=== PATIENT | male | born 1965 | race Two or more races ===

== ENCOUNTER 2024-07-05 07:30 | Day surgery (SDC) | payer MEDICAID, SELFPAY ==
[2024-07-04 08:17] VITALS: BMI 26.2
[2024-07-04 09:02] LABS: Hematocrit 29.9 % (41.0-53.0); Mean Corpuscular HGB Conc 33.4 g/dl (31.0-37.0); Mean Corpuscular Hemoglobin 29.9 pg (25.0-35.0); Mean Corpuscular Volume 90 fL (80-100); Neutrophils % (Auto) 78 % (37-80); Platelet Count 257 Thou/mm3 (140-440); RDW Standard Deviation 41.8 fL (35.1-43.9); Red Blood Count 3.34 Miln/mm3 (4.50-5.90); White Blood Count 8.4 Thou/mm3 (3.8-10.6)
[2024-07-04 09:03] LABS: Basophils % (Auto) 0 % (0-2.5); Eosinophils # (Auto) 0.1 Thou/mm3 (0.0-0.5); Eosinophils % (Auto) 1 % (0-10); Immature Granulocytes % (Auto) 0 % (0-0); Immature Granulocytes Auto 0.03 Thou/mm3 (0.00-0.00); Lymphocytes % (Auto) 12 % (10-50); Monocytes # (Auto) 0.6 Thou/mm3 (0.0-0.8); Monocytes % (Auto) 8 % (0-12); Neutrophils # (Auto) 6.6 Thou/mm3 (1.8-7.7); Nucleated Red Blood Cell % 0 /100 WBC (0)
[2024-07-04 09:19] LABS: Partial Thromboplastin Time 30.3 Seconds (22.0-36.0); Prothrombin Time 10.9 Seconds (9.0-12.2)
[2024-07-04 09:20] LABS: Alanine Aminotransferase 38 U/L (10-49); Albumin, Serum 3.9 gm/dL (3.5-5.0); Albumin/Globulin Ratio 1.4 (1.2-2.2); Alkaline Phosphatase 152 U/L (46-116); Anion Gap 6 (7-16); Aspartate Amino Transferase 26 U/L (0-34); BUN/Creatinine Ratio 7 Ratio (12-20); Bilirubin,Total 0.2 mg/dL (0.3-1.2); Blood Urea Nitrogen 41 mg/dL (9-23); Calcium (Corrected) 9.1 mg/dL (8.5-10.1); Carbon Dioxide 31.3 mMol/L (20.0-31.0); Chloride 98 mMol/L (98-107); Estimated Creatinine Clearance 10.9 mL/min (>60); Globulin 2.8 gm/dL (2.3-3.5); Glucose 245 mg/dL (74-106); Osmolality,Calculated 288 (275-295); Potassium 4.9 mMol/L (3.4-5.1); Sodium 135 mMol/L (136-145); Total Protein 6.7 gm/dL (5.7-8.2); eGFR 10 See Note
--- NOTE | 2024-07-04 15:11 | SUR.PREOP ---
Cardiac records reviewed with Dr Michel.
[2024-07-05] VITALS (17 sets, daily range): BP systolic 142–204; BP diastolic 80–97; PULSE 63–77; RESP 12–20; TEMP 36.4–37.3; O2SAT 95–100; BMI 25.1
[2024-07-05] MEDS: SODIUM CHLORIDE 0.9% 500 ML 500 ML 20 ML IV (08:35)
[2024-07-05 10:26] LABS: Potassium 4.3 mMol/L (3.4-5.1)
[2024-07-05] MEDS: ALBUTEROL RT 2.5 MG/3 ML NEBU INH (10:34)
--- NOTE | 2024-07-05 12:23 | ESOP_ITS ---
Date of Procedure 07/05/24 Pre Op Diagnosis End-stage renal disease with the need for permanent dialysis access Post Op Diagnosis Same as preop diagnosis Procedure Creation of arteriovenous fistula between the median cubital vein and the pr oximal portion of the radial artery Findings Excellent flow in the fistula with contributions to both the cephalic and basilic vein systems Procedure Description With the patient supine under laryngeal mask anesthesia the left upper extremity sterilely prepped and draped. A timeout was performed. The operation was done by making a slightly oblique incision just distal to the antecubital crease and the subcutaneous tissues were carefully dissected with electrocautery. The median cubital vein as well as its cephalic and basilic branches were carefully dissected free from surrounding tissues. The medial vein was then divided distally and mobilized. The dissection was then deepened to expose the radial artery. The radial artery was crossclamped proximally distally along 2 arteriotomy made. Stay sutures were placed. The vein was cut to size and sewn to the artery with a combination of interrupted and running 7-0 Prolene suture. Before completion the artery was 4 flushed and back flushed anastomotic area was irrigated with heparin saline and the anastomosis was completed and flow was established. Several branches were then ligated to ensure inline flow to the basilic and cephalic veins. The wounds were then closed with 3-0 Vicryl subcutaneous tissue and 4 Monocryl subcuticular skin closure. Sterile dressings were applied patient woke well from anesthesia was moved to recovery in stable condition Anesthesia other (Laryngeal mask anesthesia) Implants None Pathology / specimen None Estimated Blood Loss 10 Condition Stable Disposition PACU Surgeon Alexis Jeffries MD Surgical Staff Operation Date: 07/05/24 10:15 Case Staff Anesthesiologist: Ean Berman RN First Assistant: Lavern Singh
--- NOTE | 2024-07-05 12:35 | SUR.PHASEI ---
1230 Patient arrived to recovery resting comfortably in [facility], on oxygen 4L via oxy mask, drowsy and able to arouse with verbal prompting, breathing unlabored, vital signs stable, denies pain, dressing intact to left arm; dermabond, no bleeding noted, AV fistula from this procedure has both bruit and thrill present, lung sounds clear upon auscultation, bilateral radial pulses present when palpated, report received from Dr. Berman and Acosta ARGUELLO
--- NOTE | 2024-07-05 12:45 | SUR.PHASEI ---
1245 Report given to Gisell ARGUELLO
--- NOTE | 2024-07-05 12:45 | SUR.PHASEI ---
report from nurse cam grady pt denies pain and nausea. vss. breathing even and unlabored. dermabond inplace to left arm.
--- NOTE | 2024-07-05 13:27 | SUR.PHASEII ---
1327 Report received from Gisell ARGUELLO
--- NOTE | 2024-07-05 13:38 | SUR.PHASEII ---
[address] Berman regarding patient elevated blood pressure, ordered by anesthesia provider to treat patent current pain, and then if BP continues to be elevated administer Hydralazine 10mg via IV
[2024-07-05] MEDS: fentaNYL CIT INJ 50 mCg/ML AMP 2ML 25 MCG IV (13:43)
[2024-07-05] MEDS: hydrALAZINE INJ 20 MG/ML VIAL 10 MG IV (13:56)
--- NOTE | 2024-07-05 15:02 | SUR.PHASEII ---
1502 Patient meets discharge criteria from recovery, awake and alert, breathing unlabored, vital signs stable, denies pain, dressing intact; no bleeding noted, patient drinking water and ate a jello, denies nausea, patient assisted with dressing into his clothing by his sister, discharge instructions given with the assistance of the telephone auxiliary plant operator ID#[id number] to patient and his sister, sister signed discharge instructions. Patient given all his belongings prior to discharge, transported via wheelchair and left in a private vehicle.
== END 2024-07-05 15:02 | disposition home or self-care (01) ==
PROVIDERS: Anesthesiology; PCP Physician Assistant; Referring Provider Surgery Vascular Surgery; Visit Provider Surgery Vascular Surgery
PROC: (CPT 36825; principal; 2024-07-05 10:15)
DX: E11.22 Type 2 diabetes mellitus with diabetic chronic kidney disease (principal); I12.0 Hypertensive chronic kidney disease with stage 5 chronic kidney disease or end stage renal disease; N18.6 End stage renal disease; Z99.2 Dependence on renal dialysis; E78.00 Pure hypercholesterolemia, unspecified
CPT/HCPCS: 36821; 36415; 80053; 84132; 85025; 85610; 85730; A4217; A4649; J0360; J0461; J0690; J1100; J1644; J2250; J2371; J2405; J2440; J2704; J3010; J3490; J7040; J0665; J1920

== ENCOUNTER 2024-08-24 17:44 | Observation (INO) | payer MEDICAID, SELFPAY ==
[2024-08-24 18:07] VITALS: BP 118/65; PULSE 58; RESP 16; TEMP 36.6; O2SAT 95; BMI 26.2
--- NOTE | 2024-08-24 18:25 | XR_ITS ---
Examination: CT brain head without contrast. 2-D sagittal coronal reconstructions Date and time of exam:August 24, 2024 at 1833 hours Comparison February 28, 2005 INDICATIONS: Patient fell today with injury head, head pain CTDI: vol (mGy):7.88 DLP: (mGycm):175 Technique: Multiple CT axial sections of the brain have been obtained, 5 mm slice thickness. Contrast has not been administered. 2-D sagittal, coronal reconstructions have been obtained Low dose protocols were performed. One or more of the following dose reduction techniques were used; automated exposure control, adjustment of the mA and/or KV according to patient size, use of iterative reconstruction technique. Findings: No significant ventricular enlargement. Intra-axial or extra-axial hemorrhage density is not seen. No mass effect or midline shift Basal cisterns are not remarkable. Fourth ventricle is midline. Cranial vault intact. Impression: Negative for acute hemorrhage, mass effect or midline shift
--- NOTE | 2024-08-24 18:25 | XR_ITS ---
Examination: PA lateral chest 2 views TECHNIQUE: Upright PA lateral chest 2 views Exam date and time: August 14, 2024 1900 hours INDICATIONS: Patient fell out of bed today with image of the chest, chest pain FINDINGS: Mild enlargement cardiac contour Opacity left base consistent with pneumonia with moderate to large left pleural effusion Prominent vascular congestion Right internal jugular dialysis catheter satisfactorily positioned Clavicles ribs appear intact No pneumothorax IMPRESSION: Mild chronic heart failure pattern. Pneumonia left base with moderate to large left pleural effusion No pneumothorax
--- NOTE | 2024-08-24 18:25 | EKG_ITS ---
[facility] Test Date: 2024-08-24 Pat Name: PAIGE ZENG Department: Room: - Gender: Male Clerical Methods Analyst: : 1965 Requested By: Sagar Guaman Order Number: [id number] Reading MD: Sagar Guaman Measurements Intervals [place] Rate: 54 P: 44 WA: 151 QRS: 47 QRSD: 90 T: 109 QT: 496 QTc: 472 Interpretive Statements SINUS BRADYCARDIA LOW QRS VOLTAGE IN PRECORDIAL LEADS [QRS DEFLECTION < 1.0 mV IN CHEST LEADS] ABNORMAL QRS-T ANGLE [QRS-T AXIS DIFFERENCE > 60] PROLONGED QT INTERVAL Compared to ECG 04/19/2024 19:58:18 Low QRS voltage now present Prolonged QT interval now present Sinus rhythm no longer present Short WA interval no longer present /store/S0/[id number].pdf
--- NOTE | 2024-08-24 18:25 | XR_ITS ---
Examination: CT cervical spine without contrast 2-D sagittal reconstructions 2-D coronal reconstructions 3-D reconstructions. Exam date and time:August 24, 2024 1834 hours INDICATIONS: Patient fell today with injury to the neck, neck pain CTDI:vol (mGy) 7.88 DLP: (mGycm) 175 Technique: Multiple 2 mm axial sections of the cervical spine have been obtained. The coronal and sagittal reconstructions have been obtained. 3-D reconstructions have been obtained. Low dose protocols were performed. One or more of the following dose reduction techniques were used; automated exposure control, adjustment of the mA and/or KV according to patient size, use of iterative reconstruction technique. Findings: Axial sections demonstrate intact base of the skull. C1 exhibit satisfactory relationship to the odontoid. No acute cervical vertebral body fracture seen. Alignment posterior spinous processes satisfactory. Impression: No acute cervical fracture. Significant left pleural effusion, recommend PA lateral chest follow-up
--- NOTE | 2024-08-24 18:27 | EDRME_ITS ---
Rapid Medical Screening Exam [facility] Arrival date/time: 08/24/24 17:44 59M with history of HTN, ESRD, and DM presents to ED with LOC causing fall. Patient complaints of head, neck, and non-midline back pain. Patient denies ab pain. Chief Complaint: Fall Vital signs: Vital Signs Temperature 97.9 F 08/24/24 18:07 Pulse Rate 58 L 08/24/24 18:07 Respiratory Rate 16 08/24/24 18:07 Blood Pressure 118/65 08/24/24 18:07 Pulse Oximetry (%) 95 08/24/24 18:07 Oxygen Delivery Method Room Air 08/24/24 18:07
[2024-08-24 19:01] LABS: Basophils % (Auto) 0 % (0-2.5); Eosinophils % (Auto) 0 % (0-10); Hematocrit 29.9 % (41.0-53.0); Hemoglobin 9.6 g/dL (13.5-16.0); Immature Granulocytes % (Auto) 1 % (0-0); Immature Granulocytes Auto 0.09 Thou/mm3 (0.00-0.00); Lymphocytes # (Auto) 1.1 Thou/mm3 (1.0-4.8); Lymphocytes % (Auto) 9 % (10-50); Mean Corpuscular HGB Conc 32.1 g/dl (31.0-37.0); Mean Corpuscular Hemoglobin 28.1 pg (25.0-35.0); Mean Corpuscular Volume 87 fL (80-100); Monocytes # (Auto) 0.3 Thou/mm3 (0.0-0.8); Monocytes % (Auto) 3 % (0-12); Neutrophils # (Auto) 10.8 Thou/mm3 (1.8-7.7); Neutrophils % (Auto) 88 % (37-80); Nucleated Red Blood Cell % 0 /100 WBC (0); Platelet Count 203 Thou/mm3 (140-440); RDW Standard Deviation 47.3 fL (35.1-43.9); Red Blood Count 3.42 Miln/mm3 (4.50-5.90); White Blood Count 12.3 Thou/mm3 (3.8-10.6)
[2024-08-24 19:20] LABS: B-Type Natriuretic Peptide 1034 pg/mL (0-100)
[2024-08-24 19:22] LABS: Alanine Aminotransferase 175 U/L (10-49); Albumin, Serum 3.7 gm/dL (3.5-5.0); Albumin/Globulin Ratio 1.2 (1.2-2.2); Alkaline Phosphatase 191 U/L (46-116); Anion Gap 12 (7-16); Aspartate Amino Transferase 239 U/L (0-34); BUN/Creatinine Ratio 7 Ratio (12-20); Bilirubin,Total 0.4 mg/dL (0.3-1.2); Blood Urea Nitrogen 27 mg/dL (9-23); Calcium 9.1 mg/dL (8.3-10.6); Calcium (Corrected) 9.3 mg/dL (8.5-10.1); Carbon Dioxide 24.3 mMol/L (20.0-31.0); Chloride 99 mMol/L (98-107); Estimated Creatinine Clearance 16.2 mL/min (>60); Globulin 3.1 gm/dL (2.3-3.5); Glucose 273 mg/dL (74-106); Osmolality,Calculated 285 (275-295); Sodium 135 mMol/L (136-145); Total Protein 6.8 gm/dL (5.7-8.2); eGFR 17 See Note
[2024-08-24 19:23] LABS: Troponin I 0.124 ng/mL (0.0-0.045)
[2024-08-24 19:37] LABS: Collection Type, Urine Clean Catch; RBC,Urine 0 /hpf (0-3); WBC,Urine 0 /hpf (0-5)
[2024-08-24 19:51] LABS: Amphetamine/Methamp Scrn,U Negative (Negative); Barbiturate Screen,Urine Negative (Negative); Benzodiazepines Screen,Urine Negative (Negative); Benzoylecgonine Screen, Ur Negative (Negative); Fentanyl Screen,Urine Negative (Negative); Opiate Screen,Urine Negative (Negative); THC Screen,Urine Negative (Negative)
[2024-08-24 19:53] LABS: Bilirubin,Urine Negative (Negative); Blood,Urine Negative (Negative); Clarity,Urine Clear (Clear/Hazy); Color,Urine Lt-Yellow (Lt Yel-Yel); Glucose, Urine 3+ (Negative); Hyaline Casts,Urine < 1 /hpf (0-1); Ketones,Urine Negative (Negative); Leukocyte Esterase,Urine Negative (Negative); Nitrite,Urine Negative (Negative); Protein,Urine 3+ (Neg - Trace); Specific Gravity,Urine 1.011 (1.001-1.035); Squamous Epithelial Cell,Urine 1 /hpf (0-5); Urobilinogen,Urine Negative mg/dL (0.0-1.0)
[2024-08-24 21:49] VITALS: BP 171/84; PULSE 62; RESP 16; TEMP 36.3; O2SAT 97
[2024-08-24 22:40] VITALS: BP 175/95; PULSE 66; RESP 18; O2SAT 96
--- NOTE | 2024-08-24 22:44 | PC.NURSE ---
Initial contact with pt, awake no distress noted. S/p fall this morning, trying to get out off bed, light headed and fell. Denies hitting head or LOC. Pt stated that his B/P was low, SBP 80's.
--- NOTE | 2024-08-24 23:08 | PD.EDFALL ---
ED Fall Injury RME/HPI General Chief Complaint: Fall Stated Complaint: Fall today,low blood pressure, ringing in his head Arrival date/time: 08/24/24 17:44 RME / HPI RME / HPI Narrative: 08/24/24 17:44 59M with history of HTN, ESRD, and DM presents to ED with LOC causing fall. Patient complaints of head, neck, and non-midline back pain. Patient denies ab pain. ------- Dr. Stahl?s Main ED Evaluation: 59yo male with a history of ESRD on HD (//Tue), DM, HTN presents to the ED for a fall. Patient states he remembers laying in bed this morning and felt dizzy, reporting his son checked his blood pressure and was noted to be 80-90 systolically. He states he does not remember falling, endorsing he woke up on the floor and had a headache and lower back pain. Patient notes he's had a cough for the last 4 days. He denies any chest pain, fever, chills, sweating, body aches, N/V/D, abdominal pain or any other associated symptoms. No known allergies. Related Data Home Medications ?Medication ?Instructions ?Recorded ?Confirmed aspirin 81 mg tablet,delayed 81 mg PO DAILY 01/30/23 07/05/24 release albuterol sulfate 90 mcg/actuation 1 puff inhalation Q4H PRN 01/09/24 07/04/24 aerosol inhaler Shortness Of Breath Or Wheezing sitagliptin phosphate 25 mg tablet 25 mg PO QDAY 01/09/24 07/04/24 (Januvia) clonidine HCl 0.2 mg tablet 0.2 mg PO BID 04/17/24 07/04/24 metoprolol succinate 100 mg 100 mg PO QDAY 04/17/24 07/05/24 tablet,extended release 24 hr vitamin B complex-vitamin C-folic 1 tab PO QDAY 04/17/24 07/04/24 acid 0.8 mg tablet (Alvina-Ming) atorvastatin 80 mg tablet 80 mg PO QDAY 07/04/24 07/04/24 nifedipine 90 mg tablet,extended 90 mg PO Q12H 07/04/24 07/04/24 release Previous Rx's ?Medication ?Instructions ?Recorded hydralazine 100 mg tablet 100 mg PO TID@0800,1600,2300 #90 04/23/24 tabs valsartan 160 mg tablet 160 mg PO QDAY #30 tabs 04/23/24 Allergies Allergy/AdvReac Type Severity Reaction Status Date / Time No Known Allergies Allergy Verified 07/05/24 12:43 Review of Systems Review of Systems Systems Reviewed: All systems reviewed, normal except as documented Narrative Review of Systems: Gen: No fever, no chills, no weight loss EYES: No discharge, no visual changes, no pain HEENT: No ear pain, no congestion, no sore throat PULM: No shortness of breath, no cough, no congestion CV: No chest pain, no dyspnea on exertion, no palpitations GI: No nausea, no vomiting, no diarrhea, no pain, no constipation : No frequency, no urgency, no dysuria Musc/skel: No joint pain, + back pain Skin: No rash. Warm and dry. Psyc: No hallucinations, no depression Heme/Lymph: No easy bleeding or bruising tendencies Neuro: No weakness, + headache, + LOC, + dizziness Past Medical History Past Medical History NEUROLOGIC: Negative Neurological Disorders or Seizures CARDIAC: Positive Cardiac Disorders (pericardial effusion), Hypercholesterolemia, Congestive Heart Failure and Hypertension RESPIRATORY: Negative Chronic Obstructive Pulmonary Disease (COPD) GASTROINTESTINAL: Negative Gastrointestinal Disorders GENITOURINARY: Positive Genitourinary Disorders, Renal Disease and Dialysis (MWF) MUSCULOSKELETAL: Negative Musculoskeletal Disorders ENDOCRINE: Positive Endocrine Disorders and Diabetes Mellitus Type 2; Negative Diabetes Mellitus Type 1 HEMATOLOGIC: Positive Blood Disorders and Anemia PSYCHO/SOCIAL: Positive Depression OTHER HISTORY: Positive Hospitalization (Kidney failure); Negative Autoimmune Disease, Blood Transfusions, Blood Transfusion Reaction, Anesthesia Reactions or Cancer Family History FAMILY HISTORY: Positive Family Cardiac Disorders; Negative Family Psychiatric Problems, Family Respiratory Disorders, Family Gastrointestinal Problems, Family Cancer, Family Surgery or Family Anesthesia Reaction Social History SMOKING STATUS: Never smoker SUBSTANCE USE: does not use ED Exam Narrative Physical exam: GENERAL APPEARANCE: alert and oriented x 4, well-developed, well-nourished, no acute distress VITALS: All vitals were reviewed and the pulse ox is 96% on room air, which is normal according to my interpretation. HEENT: Normocephalic, atraumatic; pupils equal, round, reactive to light; EOMI; mucous membranes pink, moist; oropharynx clear NECK: Supple LUNGS: Diminished breath sounds at the left base; no wheezes, no rales, no rhonchi; no respiratory distress HEART: Regular rate, regular rhythm; normal S1, S2; no murmurs; right chest temporary dialysis catheter without erythema or active bleeding ABDOMEN: non distended; normal BS; soft, no tenderness, no guarding, no rebound; no masses, no organomegaly, no hernia BACK: no CVA tenderness EXTREMITIES: atraumatic; no edema NEUROLOGIC: awake; alert and oriented x4; cranial nerves II-XII grossly intact; no focal sensory or motor deficits PSYCHIATRIC: appropriate mood and affect SKIN: warm, dry, normal color; no rashes Course Quality Measures none Orders Category Date Time Status Legal Records Manager STAT Care 08/25/24 00:19 Active Continuous Pulse Oximetry ONCE Care 08/25/24 00:19 Active EKG (ED ONLY) *Do not use* NOW Care 08/24/24 18:25 Completed EKG (ED ONLY) *Do not use* NOW Care 08/25/24 00:19 Active Insert IV NOW Care 08/25/24 00:[address] cervical spine wo con Stat Exams 08/24/24 18:[address] head/brain wo con Stat Exams 08/24/24 18:25 Completed EKG (ED Only) Stat Exams 08/24/24 18:25 Draft EKG (ED Only) Stat Exams 08/25/24 00:19 Ordered XR chest 1V Stat Exams 08/24/24 18:25 Completed B-Type Natriuretic Peptide Stat Lab 08/24/24 18:43 Completed CBC Stat Lab 08/24/24 18:43 Completed Comprehensive Metabolic Panel Stat Lab 08/24/24 18:43 Completed Drug Screen,Urine Stat Lab 08/24/24 19:27 Completed Magnesium Stat Lab 08/25/24 00:19 Ordered Partial Thromboplastin Time Stat Lab 08/25/24 00:19 Ordered Prothrombin Time with INR Stat Lab 08/25/24 00:19 Ordered Troponin I Stat Lab 08/24/24 18:43 Completed Troponin I Stat Lab 08/25/24 00:19 Ordered Urinalysis Stat Lab 08/24/24 19:27 Completed Vital Signs Vital signs: Vital Signs Temperature 97.9 F 08/24/24 18:07 Pulse Rate 58 L 08/24/24 18:07 Respiratory Rate 16 08/24/24 18:07 Blood Pressure 118/65 08/24/24 18:07 Pulse Oximetry (%) 95 08/24/24 18:07 Oxygen Delivery Method Room Air 08/24/24 18:07 Fall MDM Narrative MDM Narrative:: Scribe Attestation: 08/24/24 - Julisa Babb, am scribing for and in the presence of Dr. Stahl. Patient data External records reviewed:: [facility] previous records (Per chart review, patient was admitted here on 04/17/24 for ISABELLA.) Clinical information provided by:: patient Social determinants that could affect healthcare access:: none Patient has the following chronic illnesses:: CHF, HTN, HLD, DM, ESRD on HD How is presenting disease/condition affected by chronic disease/condition?: uneffected by Evaluation data The following diagnostics were reviewed and interpreted by me:: lab results, radiology exam(s) and EKG tracing(s) Lab and/or radiology exams considered but not ordered:: none Interpretation Summary: WBC count is 12.3, HnH is 9.6/29.9, BUN is 27, Creatinine is 4.0 (which is chronic), Glucose is 273, troponin is 0.124, UDS is negative, according to my interpretation. EKG done at 1844, sinus bradycardia, rate of 84, normal axis, no ectopy, Q waves in V1-V3, QTc: 482, no STEMI, according to my interpretation. [facility] Report Signed Patient: PAIGE ZENG [facility]. Record#: [id number] Birthdate: 1965 Age/Sex: 59 / M Location: [facility] Attending Dr: Ordering Physician: Sagar Guaman PA-C Date of Service: 08/24/24 Procedure(s): CT head/brain wo con Accession Number(s): [id number] cc: Jim Driscoll PA-C; Aric Stacy MD; Sagar Guaman PA-C~ Examination: CT brain head without contrast. 2-D sagittal coronal reconstructions Date and time of exam:August 24, 2024 at 1833 hours Comparison February 28, 2005 INDICATIONS: Patient fell today with injury head, head pain CTDI: vol (mGy):7.88 DLP: (mGycm):175 Technique: Multiple CT axial sections of the brain have been obtained, 5 mm slice thickness. Contrast has not been administered. 2-D sagittal, coronal reconstructions have been obtained Low dose protocols were performed. One or more of the following dose reduction techniques were used; automated exposure control, adjustment of the mA and/or KV according to patient size, use of iterative reconstruction technique. Findings: No significant ventricular enlargement. Intra-axial or extra-axial hemorrhage density is not seen. No mass effect or midline shift Basal cisterns are not remarkable. Fourth ventricle is midline. Cranial vault intact. Impression: Negative for acute hemorrhage, mass effect or midline shift Dictated By: Aric Stacy MD Signed By: <Electronically signed by Aric Stacy MD in [place]> 08/24/241936 [facility] Report Signed Patient: PAIGE ZENG [facility]. Record#: [id number] Birthdate: 1965 Age/Sex: 59 / M Location: [facility] Attending Dr: Ordering Physician: Sagar Guaman PA-C Date of Service: 08/24/24 Procedure(s): XR chest 1V Accession Number(s): [id number] cc: Jim Driscoll PA-C; Aric Stacy MD; Sagar Guaman PA-C~ Examination: PA lateral chest 2 views TECHNIQUE: Upright PA lateral chest 2 views Exam date and time: August 14, 2024 1900 hours INDICATIONS: Patient fell out of bed today with image of the chest, chest pain FINDINGS: Mild enlargement cardiac contour Opacity left base consistent with pneumonia with moderate to large left pleural effusion Prominent vascular congestion Right internal jugular dialysis catheter satisfactorily positioned Clavicles ribs appear intact No pneumothorax IMPRESSION: Mild chronic heart failure pattern. Pneumonia left base with moderate to large left pleural effusion No pneumothorax Dictated By: Aric Stacy MD Signed By: <Electronically signed by Aric Stacy MD in [place]> 08/24/241943 [facility] Report Signed Patient: PAIGE ZENG [facility]. Record#: [id number] Birthdate: 1965 Age/Sex: 59 / M Location: [facility] Attending Dr: Ordering Physician: Sagar Guaman PA-C Date of Service: 08/24/24 Procedure(s): CT cervical spine wo con Accession Number(s): [id number] cc: Jim Driscoll PA-C; Aric Stacy MD; Sagar Guaman PA-C~ Examination: CT cervical spine without contrast 2-D sagittal reconstructions 2-D coronal reconstructions 3-D reconstructions. Exam date and time:August 24, 2024 1834 hours INDICATIONS: Patient fell today with injury to the neck, neck pain CTDI:vol (mGy) 7.88 DLP: (mGycm) 175 Technique: Multiple 2 mm axial sections of the cervical spine have been obtained. The coronal and sagittal reconstructions have been obtained. 3-D reconstructions have been obtained. Low dose protocols were performed. One or more of the following dose reduction techniques were used; automated exposure control, adjustment of the mA and/or KV according to patient size, use of iterative reconstruction technique. Findings: Axial sections demonstrate intact base of the skull. C1 exhibit satisfactory relationship to the odontoid. No acute cervical vertebral body fracture seen. Alignment posterior spinous processes satisfactory. Impression: No acute cervical fracture. Significant left pleural effusion, recommend PA lateral chest follow-up Dictated By: Aric Stacy MD Signed By: <Electronically signed by Aric Stacy MD in [place]> 08/24/241934 Medications / Prescriptions Medications or Prescriptions considered but not ordered:: none Medication administrations:: see above, if any Consultations Consultation(s) initiated? (list below): Yes Consultation #1 (Physician, Specialty, Details): Discussed case with [the resident physician, attending Dr. Bui] from Hospitalist service regarding admission. Discussed patients ED course, exam findings, labs, and radiology results. The Hospitalist [agrees] to accept the patient for admission. Time: 00:52 Diagnosis Fall Differential Diagnosis: other (hypokalemia, hyperkalemia, hypomagnesemia, orthostatic syncope, STEMI, NSTEMI, hypovolemia) Most likely diagnosis given after review of the tests above:: see below Admission Indicated Admission indicated?: indicated Admission Request Was there a request for admission?: Yes Admission Attestation Admission request attestation: Discussed case with [] from Hospitalist service regarding admission. Discussed patients ED course, exam findings, labs, and radiology results. The Hospitalist [agrees,declines] to accept the patient for admission. Disposition Plan Disposition Plan: Admit Discharge Plan Plan Patient Disposition: Admit Acute Care w/in Hospital Prescriptions/Referrals Prescriptions/Med Rec: No Action aspirin 81 mg tablet,delayed release (DR/EC) 81 mg PO DAILY Patient Comments: TOME JALEEL TABLETA TODOS LOS D FOR 90 DAYS Januvia 25 mg tablet 25 mg PO QDAY albuterol sulfate 90 mcg/actuation HFA aerosol inhaler 1 puff INHALATION Q4H PRN (Reason: Shortness Of Breath Or Wheezing) Patient Comments: INHALE UN SOPLIDO INTO THE LUNGS CADA CUATRO HORAS CUANDO SEA NECESARIO FOR 30 DAYS metoprolol succinate 100 mg Tablet Extended Release 24 Hr 100 mg PO QDAY clonidine HCl 0.2 mg Tablet 0.2 mg PO BID Alvina-Ming 0.8 mg Tablet 1 tab PO QDAY hydralazine 100 mg tablet 100 mg PO TID@0800,1600,2300 Qty: 90 0RF valsartan 160 mg tablet 160 mg PO QDAY Qty: 30 0RF atorvastatin 80 mg Tablet 80 mg PO QDAY nifedipine 90 mg Tablet Extended Release 90 mg PO Q12H Referrals: Jim Driscoll PA-C [Primary Care Provider] - In 1 week Problem List Clinical Impression: Pneumonia, Syncope, Sepsis Patient/Caregiver Discharge Instructions Print Language: Australian Stand Alone Forms: Atiya Award Info., Patient Portal Info Letter
[2024-08-25] VITALS (30 sets, daily range): BP systolic 144–215; BP diastolic 82–116; PULSE 63–90; RESP 16–19; TEMP 36.6–37.1; O2SAT 95–99
[2024-08-25 01:22] LABS: INR 1.2 (0.9-1.3); Partial Thromboplastin Time 29.9 Seconds (22.0-36.0); Prothrombin Time 13.3 Seconds (9.0-12.2)
[2024-08-25 01:29] LABS: Magnesium 1.9 mg/dL (1.6-2.6)
[2024-08-25 01:33] LABS: Troponin I 0.117 ng/mL (0.0-0.045)
--- NOTE | 2024-08-25 01:54 | PD.RESHP ---
Documentation for date of: 08/25/24 HPI History of Present Illness Chief complaint: Syncopal episode History of present illness: A 58 yr male with PMH of HTN, HLD, ESRD on HD , osteomyelitis of right toe, and T2DM presented to the hospital with chief complaints of dizziness and an episode of syncope on the day of admission. Patient reported that he had a recent change in the blood pressure medication on 23/08/2024 and since then patient is having dizziness and mild tinnitus in his ears. On the day of admission, patient felt extremely dizzy on waking up in the morning and checked his blood pressures and found to have blood pressure in 80s. Patient went back to the bed, when tried to get up from the bed he suddenly felt dizzy and blackening out following which he found himself on the floor by the side of the bed and unsure of the duration of unconsciousness. Denies tongue bite, micturition, bowel movement at the time. And later on regaining the consciousness he called his daughter who helped him out to get onto the bed and since then patient felt extremely weak and dizzy following which she came to the hospital for further evaluation. Endorsed that he did not take blood pressure medications on the day of admission. Denies fever, shortness of breath, vomitings, diarrhea, burning micturition, palpitations, chest pain. ED Course: -Initial vitals were blood pressure 118/65 mmHg, pulse rate 58 bpm, respiratory rate 16/min, SpO2 93% with room air, temperature 97.9 ?F -Labs significant for hemoglobin 9.1, BUN 29, creatinine 4.4, AST 239, ALT 175, ALP 191, troponin 0.124 -Cervical spine CT is negative for acute fracture. Head CT is negative for hemorrhage. Chest x-ray showed left pleural effusion. -EKG showed sinus bradycardia with heart rate of 54/min, prolonged QTc of 472. -Patient was admitted for evaluation of syncope, likely due to antihypertensive medications Past medical history: Hypertension, hyperlipidemia, ESRD on HD, osteomyelitis of right toe, type 2 diabetes mellitus Past surgical history: Not significant Social history: Denies smoking, alcohol, other illicit drug abuse. Review of Systems Review of Systems Systems Reviewed: All systems reviewed, normal except as documented Exam Vital Signs Temp Pulse Resp BP Pulse Ox O2 Del Method 97.9 F 69 19 192/97 H 95 Room Air 08/25/24 01:12 08/25/24 01:12 08/25/24 01:12 08/25/24 01:12 08/25/24 01:12 08/25/24 01:12 Narrative Exam General: Awake. HEENT: Normocephalic, atraumatic, mucous membranes moist. Heart: Regular rate and rhythm, no murmurs. Lungs: Clear to auscultation with no wheezing or crackles. TDC on the right side with intact and clean dressing Abdomen: Soft, nondistended, nontender, positive bowel sounds. ?No guarding or rebound tenderness. Neurologic: Alert and oriented x3, no gross neurological deficit, and patient able to move all 4 extremities. Extremities: No edema. Skin: No rash or ecchymoses. Results: Labs 08/25/24 04:40 08/25/24 04:40 Labs: Short CBC 08/24/24 Range/Units 18:43 WBC 12.3 H (3.8-10.6) Thou/mm3 Hgb 9.6 L (13.5-16.0) g/dL Hct 29.9 L (41.0-53.0) % Plt Count 203 (140-440) Thou/mm3 BMP 08/24/24 18:43 Sodium 135 L Potassium 5.0 Chloride 99 Carbon Dioxide 24.3 BUN 27 H Creatinine 4.0 H Glucose 273 H Calcium 9.1 Cardiac Enzymes 08/24/24 08/25/24 Range/Units 18:43 00:42 Troponin I 0.124 H* 0.117 H* (0.0-0.045) ng/mL Liver Function 08/24/24 Range/Units 18:43 Total Bilirubin 0.4 (0.3-1.2) mg/dL AST 239 H (0-34) U/L ALT 175 H (10-49) U/L Alkaline Phosphatase 191 H (46-116) U/L Albumin 3.7 (3.5-5.0) gm/dL Urine 08/24/24 Range/Units 19:27 Urine Color Lt-Yellow (Lt Yel-Yel) Urine Clarity Clear (Clear/Hazy) Urine pH 8.0 H (5.0-7.0) Ur Specific [place] 1.011 (1.001-1.035) Urine Protein 3+ A (Neg - Trace) Urine Glucose (UA) 3+ A (Negative) Quality Measures Quality Measures none Medications Home Medications and Allergies Home Medications ?Medication ?Instructions ?Recorded ?Confirmed ?Type aspirin 81 mg tablet,delayed 81 mg PO DAILY 01/30/23 07/05/24 History release albuterol sulfate 90 mcg/actuation 1 puff inhalation Q4H PRN 01/09/24 07/04/24 History aerosol inhaler Shortness Of Breath Or Wheezing sitagliptin phosphate 25 mg tablet 25 mg PO QDAY 01/09/24 07/04/24 History (Januvia) clonidine HCl 0.2 mg tablet 0.2 mg PO BID 04/17/24 07/04/24 History metoprolol succinate 100 mg 100 mg PO QDAY 04/17/24 07/05/24 History tablet,extended release 24 hr vitamin B complex-vitamin C-folic 1 tab PO QDAY 04/17/24 07/04/24 History acid 0.8 mg tablet (Alvina-Ming) atorvastatin 80 mg tablet 80 mg PO QDAY 07/04/24 07/04/24 History Allergies Allergy/AdvReac Type Severity Reaction Status Date / Time No Known Allergies Allergy Verified 07/05/24 12:43 Assessment & Plan Plan A 58 yr male with PMH of HTN, HLD, ESRD on HD , osteomyelitis of right toe, and T2DM presented to the hospital with chief complaints of dizziness and an episode of syncope on the day of admission which could be likely due to antihypertensive medications # Syncope # Bradycardia versus mild hypotension due to recent medication adjustments -Patient reported that recently his blood pressure medications, likely nifedipine was changed during his last dialysis session -Since that time, patient is complaining of dizziness and had a syncopal episode on the day of admission -Denies involuntary movements, bowel or bladder incontinence, tongue bite -Vitals are stable at the time of admission except for mild bradycardia 58/min -EKG at the time of admission showed sinus rhythm with bradycardia of heart rate 54/min, prolonged QTc of 470 -Chest x-ray showed left pleural effusion Plan -Orthostatic vitals are ordered -Patient admitted for observation and telemetry -Started on clonidine, losartan -Resume other home medications based on his blood pressures -Medication reconciliation is needed for the patient at the time of discharge -Monitor for bradycardia/rhythm abnormalities # ESRD on HD -Patient is on dialysis on Tuesday//Tuesday -Patient is following Dr. Amaro -Dr. Bustos is consulted as patient is having pending dialysis on 08/25/2024 -Very low suspicion of catheter related bloodstream infection as of now # Hypertensive urgency # History of hypertension -Patient blood pressure at the time of admission is 118/65 mmHg -Later blood pressure found to elevated, SBP> 180 mmHg -Medication reconciliation is ordered -Resume his clonidine and losartan and resume other medications # History of diabetes mellitus -Patient is on Januvia -Insulin sliding scale is ordered -HbA1c on 03/2024 is 6 Hospital Maintenance: Dispo: Tele DVT ppx: SCD GI ppx: not needed Diet: Renal IV lines: peripheral Code status: Full Patient plan of care was discussed with the attending physician, Dr. iTm Harden, PGY1 Attending Provider Attestation/Addendum I attest that I was physically present for the evaluation, physical examination, lab and imaging review of the patient with the residents. I discussed the case with the residents and agree with the findings and plans of care as documented above. Patient is a 58 years old male with past medical history of hypertension, hyperlipidemia, ESRD on hemodialysis, osteomyelitis of right toe and type 2 diabetes mellitus who presented to the ED with complaint of dizziness and episode of syncope. Patient recently had a change in his antihypertensives regimen, stated that he was added some more antihypertensives. On waking up today, he found his blood pressure to be on 80s systolic. He felt dizzy and had a blackout, found himself on the floor. He was unsure of the duration. In the ED, his pulse was 58 otherwise rest of the vitals were within normal limits. Lab results showed hemoglobin of 9.1, BUN/creatinine 29/4.4, AST 239, ALT 175, ALP 191 and troponin of 0.124. Head CT and cervical CT were negative for acute hemorrhage or fracture. We will admit patient for evaluation of syncope, we will obtain orthostatic vitals, echocardiography. At bedside, patient was found to have elevated blood pressures, we will resume his home antihypertensives and adjust as needed. We will obtain nephrology consult for continuation of hemodialysis. Also started on sliding scale for diabetes mellitus. Luis Dumont MD
[2024-08-25 04:50] LABS: Basophils % (Auto) 0 % (0-2.5); Eosinophils % (Auto) 0 % (0-10); Hemoglobin 9.1 g/dL (13.5-16.0); Immature Granulocytes % (Auto) 0 % (0-0); Immature Granulocytes Auto 0.03 Thou/mm3 (0.00-0.00); Lymphocytes # (Auto) 1.6 Thou/mm3 (1.0-4.8); Lymphocytes % (Auto) 16 % (10-50); Mean Corpuscular HGB Conc 32.5 g/dl (31.0-37.0); Mean Corpuscular Hemoglobin 27.7 pg (25.0-35.0); Mean Corpuscular Volume 85 fL (80-100); Monocytes # (Auto) 0.5 Thou/mm3 (0.0-0.8); Monocytes % (Auto) 4 % (0-12); Neutrophils # (Auto) 8.2 Thou/mm3 (1.8-7.7); Neutrophils % (Auto) 79 % (37-80); Nucleated Red Blood Cell % 0 /100 WBC (0); Platelet Count 185 Thou/mm3 (140-440); RDW Standard Deviation 46.8 fL (35.1-43.9); Red Blood Count 3.28 Miln/mm3 (4.50-5.90); White Blood Count 10.3 Thou/mm3 (3.8-10.6)
[2024-08-25 05:05] LABS: Anion Gap 8 (7-16); BUN/Creatinine Ratio 7 Ratio (12-20); Blood Urea Nitrogen 29 mg/dL (9-23); Calcium 8.8 mg/dL (8.3-10.6); Chloride 101 mMol/L (98-107); Creatinine (Component) 4.4 mg/dL (0.6-1.3); Estimated Creatinine Clearance 14.7 mL/min (>60); Glucose 154 mg/dL (74-106); Osmolality,Calculated 282 (275-295); Sodium 137 mMol/L (136-145); eGFR 15 See Note
[2024-08-25] MEDS: hydrALAZINE HCL 25 MG TABLET 100 MG PO (05:23)
--- NOTE | 2024-08-25 06:31 | PC.NURSE ---
clarified with hospitalist Kalin dose. Will change amy HIGGINBOTHAM.
[2024-08-25] MEDS: LOSARTAN POTASSIUM 25 MG TABLET 100 MG PO (06:47)
--- NOTE | 2024-08-25 06:49 | PC.NURSE ---
pt unable to recall meds taken at home, will call dtr.
[2024-08-25] MEDS: cloNIDine HCL 0.1 MG TABLET 0.2 MG PO ×2 (08:48→13:38)
--- NOTE | 2024-08-25 11:11 | ESDS_ITS ---
Planned Discharge Date 08/25/24 DS: Providers Provider Date of admission: 08/25/24 01:52 Primary care physician: Jim Driscoll PA-C Admitting Provider: Luis Dumont MD Attending Provider on Admission: Luis Dumont MD Consults: 08/25/24 05:26 Consult to Nephrology Routine Comment: ESRD Consulting Provider: Navneet Bustos Attending Provider on DC: Dex Reyna MD Discharging Provider: Kelton Gallagher DO DS: Diagnosis Problem List Completed Was Problem List Reviewed/Reconciled?: Yes Hospital Course Hospital Course Hospital course: Hospital course: A 58 yr male with PMH of HTN, HLD, ESRD on HD T//TUE, osteomyelitis of right toe, and T2DM presented to the hospital with chief complaints of dizziness and an episode of syncope on the day of admission. Patient reported that he had a recent change in the blood pressure medication (started nifedipine) on 08/23/2024 and since then patient is having dizziness and mild tinnitus in his ears. Syncope workup in the ED performed. Vitals in the ED reassuring, labs unchanged from previous. CT of the spine is negative for acute fracture. Head CT is negative for hemorrhage. Chest x-ray showed left pleural effusion. EKG sinus bradycardia with heart rate of 54/min, prolonged QTc of 472. Patient was placed on observation, for syncope likely in the setting of new antihypertensive medication. Consulted patient's environment artist, Dr. Bustos, who recommended discontinuing nifedipine, performing HD and discharging pt. Pt to f/u with nephrology and pcp outpatient. Discharge instructions: Discontinue nifedipine 90 mg daily Resume aspirin 81 mg daily Resume albuterol sulfate 90 mcg/Accu Tatian aerosol inhaler Resume sitagliptin phosphate 25 mg daily Resume clonidine HCl 0.2 mg daily resume metoprolol succinate 100 mg tablet, extended release 24-hour Resume atorvastatin 80 mg daily Follow-up with your environment artist Dr. Bustos and PCP closely. Discharge diagnosis: # Syncope # Bradycardia versus mild hypotension due to recent medication adjustments # ESRD on HD # Hypertensive urgency # History of hypertension # History of diabetes mellitus Patient care was discussed with my attending Dr. Reyna, Kelton Gallagher DO, PGY1 Time Spent with Patient Time attestation: Total time spent providing and/or coordinating discharge services: Exam Vital Signs Temp Pulse Resp BP Pulse Ox O2 Del Method 98.2 F 67 18 167/84 H 98 Room Air 08/25/24 09:40 08/25/24 09:40 08/25/24 09:40 08/25/24 09:40 08/25/24 09:40 08/25/24 09:40 Narrative Exam Constitutional: In no acute distress Head: Normocephalic/Atraumatic Eyes: no conjunctival injection , symmetrical lids. ENMT: Moist Mucous Membranes CVS: RRR RESP: no increased work of breathing MSK: No lower extremity edema Skin: Warm to touch, Dry. Neuro: A&O x 3, moves all limbs spontaneously Psych: Appropriate mood and affect. Discharge Plan Prescriptions/Referrals Prescriptions/Med Rec: No Action aspirin 81 mg tablet,delayed release (DR/EC) 81 mg PO DAILY Patient Comments: TOME JALEEL TABLETA TODOS LOS D FOR 90 DAYS Januvia 25 mg tablet 25 mg PO QDAY albuterol sulfate 90 mcg/actuation HFA aerosol inhaler 1 puff INHALATION Q4H PRN (Reason: Shortness Of Breath Or Wheezing) Patient Comments: INHALE UN SOPLIDO INTO THE LUNGS CADA CUATRO HORAS CUANDO SEA NECESARIO FOR 30 DAYS metoprolol succinate 100 mg Tablet Extended Release 24 Hr 100 mg PO QDAY clonidine HCl 0.2 mg Tablet 0.2 mg PO BID Alvina-Ming 0.8 mg Tablet 1 tab PO QDAY hydralazine 100 mg tablet 100 mg PO TID@0800,1600,2300 Qty: 90 0RF valsartan 160 mg tablet 160 mg PO QDAY Qty: 30 0RF atorvastatin 80 mg Tablet 80 mg PO QDAY nifedipine 90 mg Tablet Extended Release 90 mg PO Q12H Referrals: Jim Driscoll PA-C [Primary Care Provider] - Patient/Caregiver Discharge Instructions Other Discharge Activity Instructions:: Discontinue nifedipine 90 mg daily Resume aspirin 81 mg daily Resume albuterol sulfate 90 mcg/Accu Tatian aerosol inhaler Resume sitagliptin phosphate 25 mg daily Resume clonidine HCl 0.2 mg daily resume metoprolol succinate 100 mg tablet, extended release 24-hour Resume atorvastatin 80 mg daily Follow-up with your environment artist Dr. Bustos and PCP closely. Print Language: Tajik Quality Discharge Quality Measures VTE prophylaxis
--- NOTE | 2024-08-25 11:28 | PD.NEPHCONS ---
History of Present Illness Data of Consult Requesting Physician: Luis Dumont MD Primary Care Provider: Jim Driscoll PA-C Consult Narrative Reason for consult: ESRD History of present illness: Mr. Evans is a 59-year-old gentleman who has extensive past medical history of hypertension, diabetes, dyslipidemia, ESRD has been on dialysis for the last few months under my care ( [facility]TS) presented to the emergency department after an episode of syncope yesterday. Patient apparently was feeling dizzy and noted to have significantly low blood pressure along with ringing in the ears that the daughter brought him to the emergency department. Patient stated that he fell on the floor and subsequently presented to the ED for further evaluation. In the emergency department blood pressure was low at 118/65, heart rate 58. Respiratory rate 16, O2 sat 93%. He is afebrile. During his last visit in my office his blood pressure was 200 systolic and I started him on nifedipine. Patient stated since he was started on nifedipine he was not feeling well. Denies fever, shortness of breath, vomiting, diarrhea, burning micturition, palpitations, chest pain. His home medications included 5 different blood pressure pills-clonidine, hydralazine, metoprolol, nifedipine, valsartan. In the emergency department, Head CT negative. Cervical spine CT negative. Chest x-ray showed mild fluid overload -EKG showed sinus bradycardia with heart rate of 54/min, prolonged QTc of 472. -Patient was admitted for evaluation of syncope, likely due to antihypertensive medications Renal consultation requested for further need for dialysis cc:: cc: Luis Dumont MD Review of Systems Review of Systems Narrative Review of Systems: CONSTITUTIONAL: Patient denies any fever, chills. Complaining of fatigue HEENT: Denies any visual disturbances or hearing problems. CARDIOVASCULAR: Patient denies any chest pain, shortness of breath, swelling in the lower extremities. PULMONARY: Patient denies any shortness of breath, cough. GASTROINTESTINAL: Patient denies any abdominal pain, constipation, nausea, vomiting, diarrhea. GENITOURINARY: Patient denies any urinary symptoms of burning or frequency or hematuria, denies any form in the urine. SKIN: Denies any rash. MUSCULOSKELETAL: Denies any muscular skeletal problems of joint pains. NEUROLOGICAL: Denies any neurological problems of strokes, seizures or confusion. Denies any memory problems. Had an episode of syncope not anymore. PSYCHIATRIC: Denies any depression or anxiety. LYMPHATICS : No lymphadenopathy Past Medical History Past Medical History NEUROLOGIC: Negative Neurological Disorders or Seizures CARDIAC: Positive Cardiac Disorders (pericardial effusion), Hypercholesterolemia, Congestive Heart Failure and Hypertension RESPIRATORY: Negative Chronic Obstructive Pulmonary Disease (COPD) GASTROINTESTINAL: Negative Gastrointestinal Disorders GENITOURINARY: Positive Genitourinary Disorders, Renal Disease and Dialysis (MWF) MUSCULOSKELETAL: Negative Musculoskeletal Disorders ENDOCRINE: Positive Endocrine Disorders and Diabetes Mellitus Type 2; Negative Diabetes Mellitus Type 1 HEMATOLOGIC: Positive Blood Disorders and Anemia PSYCHO/SOCIAL: Positive Depression OTHER HISTORY: Positive Hospitalization (Kidney failure); Negative Autoimmune Disease, Blood Transfusions, Blood Transfusion Reaction, Anesthesia Reactions or Cancer Family History FAMILY HISTORY: Positive Family Cardiac Disorders; Negative Family Psychiatric Problems, Family Respiratory Disorders, Family Gastrointestinal Problems, Family Cancer, Family Surgery or Family Anesthesia Reaction Social History SMOKING STATUS: Never smoker SUBSTANCE USE: does not use Meds Home Medications and Allergies Home Medications ?Medication ?Instructions ?Recorded ?Confirmed ?Type aspirin 81 mg tablet,delayed 81 mg PO DAILY 01/30/23 07/05/24 History release albuterol sulfate 90 mcg/actuation 1 puff inhalation Q4H PRN 01/09/24 07/04/24 History aerosol inhaler Shortness Of Breath Or Wheezing sitagliptin phosphate 25 mg tablet 25 mg PO QDAY 01/09/24 07/04/24 History (Januvia) clonidine HCl 0.2 mg tablet 0.2 mg PO BID 04/17/24 07/04/24 History metoprolol succinate 100 mg 100 mg PO QDAY 04/17/24 07/05/24 History tablet,extended release 24 hr vitamin B complex-vitamin C-folic 1 tab PO QDAY 04/17/24 07/04/24 History acid 0.8 mg tablet (Alvina-Ming) atorvastatin 80 mg tablet 80 mg PO QDAY 07/04/24 07/04/24 History nifedipine 90 mg tablet,extended 90 mg PO Q12H 07/04/24 07/04/24 History release Allergies Allergy/AdvReac Type Severity Reaction Status Date / Time No Known Allergies Allergy Verified 07/05/24 12:43 Exam Vital Signs Temp Pulse Resp BP Pulse Ox O2 Del Method 36.8 C 67 18 167/84 H 98 Room Air 08/25/24 09:40 08/25/24 09:40 08/25/24 09:40 08/25/24 09:40 08/25/24 09:40 08/25/24 09:40 Narrative Exam GENERAL APPEARANCE: Patient seems to be comfortable, adequately hydrated and nourished. HEENT: EOMI, PERRLA NECK: Neck supple, no JVD or bruit CARDIOVASCULAR: Heart regular, no murmurs LUNGS/CHEST: Chest clear to auscultation. No rales, rhonchi, wheezing ABDOMEN: Soft, nontender, nondistended. No masses. Normal bowel sounds. EXTREMITIES: No edema, clubbing or cyanosis. SKIN: Skin exam normal without any rashes MUSCULOSKELETAL: Musculoskeletal exam normal PSYCHIATRIC: Normal mood, affect LYMPHATICS: No lymphadenopathy noted NEUROLOGICAL : No neurological deficits Results Labs 08/25/24 04:40 08/25/24 04:40 Labs: Short CBC 08/24/24 08/25/24 Range/Units 18:43 04:40 WBC 12.3 H 10.3 (3.8-10.6) Thou/mm3 Hgb 9.6 L 9.1 L (13.5-16.0) g/dL Hct 29.9 L 28.0 L (41.0-53.0) % Plt Count 203 185 (140-440) Thou/mm3 BMP 08/24/24 08/25/24 18:43 04:40 Sodium 135 L 137 Potassium 5.0 5.0 Chloride 99 101 Carbon Dioxide 24.3 28.0 BUN 27 H 29 H Creatinine 4.0 H 4.4 H* Glucose 273 H 154 H D Calcium 9.1 8.8 Cardiac Enzymes 08/24/24 08/25/24 Range/Units 18:43 00:42 Troponin I 0.124 H* 0.117 H* (0.0-0.045) ng/mL Liver Function 08/24/24 Range/Units 18:43 Total Bilirubin 0.4 (0.3-1.2) mg/dL AST 239 H (0-34) U/L ALT 175 H (10-49) U/L Alkaline Phosphatase 191 H (46-116) U/L Albumin 3.7 (3.5-5.0) gm/dL Urine 08/24/24 Range/Units 19:27 Urine Color Lt-Yellow (Lt Yel-Yel) Urine Clarity Clear (Clear/Hazy) Urine pH 8.0 H (5.0-7.0) Ur Specific [place] 1.011 (1.001-1.035) Urine Protein 3+ A (Neg - Trace) Urine Glucose (UA) 3+ A (Negative) Assessment & Plan Additional Assessment & Plan Additional Plan: (1) 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 Tolerating dialysis without any problems. Hemodialysis for 3 hours, 2K, ultrafiltration 2-3 L, Epogen 6000, no heparin ordered. Plan of care discussed with the dialysis nurse. Please see dialysis flowsheet for further details. (2) syncope Status: Acute Assessment and plan: most likely related to antihypertensives. On admission his blood pressure was very low. Will hold off on nifedipine. 3)Anemia: Status: Chronic Assessment and plan: Will give Epogen with dialysis (4) Diabetes: Status: Chronic Accu-Cheks, sliding scale, consistent carb low (5) Hypertension: Status: Acute Assessment and plan: Resume home medications except nifedipine. Currently his blood pressure systolic 1 60-1 75. (7) PAD (peripheral artery disease): Status: Acute Assessment and plan: Decrease in pulses of the lower extremities Thank you Dr. Reyna for allowing me to participate in the care of Mr. Evans. Patient requesting to go home postdialysis. Will defer to primary team.
[2024-08-25] MEDS: INSULIN LISPRO (AdmeLOG) 1 UNIT/0.01 ML UNIT SC (12:32)
--- NOTE | 2024-08-25 13:41 | PC.NURSE ---
BP elevated, order from Dr. Bustos, clonidine 0.2 MG po given.
--- NOTE | 2024-08-25 15:17 | PC.LAC ---
Addendum entered by Kassidy Arceo RN 08/25/24 15:26: Disregard previous note about venous pressure. Wrong pt.l Addendum entered by Kassidy Arceo RN 08/25/24 15:24: Increased venous pressure, rinsed pt. back thinking she was clotting, but lines clear so restarted HD added 200 to goal for NS flush and increased time 2 minutes to bring down UF rate. Original Note: Called Dr. Bustos about pts. elevated BP. States there is nothing else we can do, complete dialysis and let the team take care of it.
--- NOTE | 2024-08-25 15:28 | PC.NURSE ---
Dr. Bustos called about pts elevated BP. She stated nothing we can do now, finish HD and let the team deal with it.
[2024-08-25] MEDS: EPOETIN ALFA-EPBX INJ 10,000 UNIT/ML VIAL (ESRD) 10000 UNIT SC (16:43)
== END 2024-08-25 18:19 | disposition home or self-care (01) ==
LOC: SERX 08-25 00:55 → SERHOLD 08-25 02:18
PROVIDERS: Physician Assistant; Admitting Provider Student in an Organized Health Care Education/Training Program; Emergency Provider Emergency Medicine; PCP Physician Assistant; Referring Provider Emergency Medicine; Visit Provider Student in an Organized Health Care Education/Training Program
DX: R55 Syncope and collapse (principal); I16.0 Hypertensive urgency; E11.22 Type 2 diabetes mellitus with diabetic chronic kidney disease; I12.0 Hypertensive chronic kidney disease with stage 5 chronic kidney disease or end stage renal disease; N18.6 End stage renal disease; Z99.2 Dependence on renal dialysis; Z01.810 Encounter for preprocedural cardiovascular examination; E78.5 Hyperlipidemia, unspecified; Z91.81 History of falling
CPT/HCPCS: 36415; 70450; 71045; 72125; 80048; 80053; 80307; 81001; 83735; 83880; 84484; 85025; 85610; 85730; 90935; 93005; 96372; 99285; G0378; J1815; Q5105; A9270; G0257

== ENCOUNTER 2024-10-11 08:58 | Emergency (ER) | payer MEDICAID, SELFPAY ==
[2024-10-11 08:58] VITALS: BP 247/118; PULSE 70; RESP 12; TEMP 36.6; O2SAT 99
[2024-10-11 09:00] VITALS: BMI 24.6
--- NOTE | 2024-10-11 10:08 | PD.EDADULT ---
ED General RME/HPI General Chief complaint: General Adult/Misc Complain Stated complaint: HIGH BLOOD PRESSURE Time Seen by Provider: 10/11/24 09:52 Arrival date/time: 10/11/24 08:58 RME / HPI RME / HPI narrative: DR. RODRIGUEZ MAIN ED EVALUATION: 59 year old male with past medical history significant for hypertension, diabetes, dyslipidemia, ESRD has been on dialysis for the last few months under Dr. Bustos presents to the Emergency Department sent from surgery after he was supposed to get a left fistula for dialysis but his blood pressure was too high. Patient showed us a paper where his appointment for the surgery was at 9 AM but they called him at 7 to come in already and he was rushed and forgot to take his blood pressure medications. He otherwise, is asymptomatic. Related Data Home Medications ?Medication ?Instructions ?Recorded ?Confirmed aspirin 81 mg tablet,delayed 81 mg PO DAILY 01/30/23 10/05/24 release albuterol sulfate 90 mcg/actuation 1 puff inhalation Q4H PRN 01/09/24 10/05/24 aerosol inhaler Shortness Of Breath Or Wheezing sitagliptin phosphate 25 mg tablet 25 mg PO QDAY 01/09/24 10/05/24 (Januvia) clonidine HCl 0.2 mg tablet 0.2 mg PO BID 04/17/24 10/05/24 metoprolol succinate 100 mg 100 mg PO QDAY 04/17/24 10/05/24 tablet,extended release 24 hr vitamin B complex-vitamin C-folic 1 tab PO QDAY 04/17/24 10/05/24 acid 0.8 mg tablet (Alvina-Ming) atorvastatin 80 mg tablet 80 mg PO QDAY 07/04/24 10/05/24 azilsartan medoxomil 80 mg tablet 80 mg PO QAM 10/05/24 10/05/24 (Edarbi) ferrous sulfate 325 mg (65 mg 325 mg PO Q OTHER DAY 10/05/24 10/05/24 iron) tablet nifedipine 90 mg tablet,extended 90 mg PO BID 10/05/24 10/05/24 release Previous Rx's ?Medication ?Instructions ?Recorded hydralazine 100 mg tablet 100 mg PO TID@0800,1600,2300 #90 04/23/24 tabs Allergies Allergy/AdvReac Type Severity Reaction Status Date / Time No Known Allergies Allergy Verified 10/11/24 09:45 Review of Systems Review of Systems Systems Reviewed: All systems reviewed, normal except as documented Past Medical History Past Medical History CARDIAC: Positive Cardiac Disorders, Hypercholesterolemia, Congestive Heart Failure and Hypertension GENITOURINARY: Positive Genitourinary Disorders, Renal Disease and Dialysis (T//Tue) ENDOCRINE: Positive Endocrine Disorders and Diabetes Mellitus Type 2 HEMATOLOGIC: Positive Blood Disorders and Anemia PSYCHO/SOCIAL: Positive Depression OTHER HISTORY: Positive Hospitalization and Autoimmune Disease Family History FAMILY HISTORY: Positive Family Cardiac Disorders Social History SMOKING STATUS: Never smoker SUBSTANCE USE: does not use ALCOHOL: Never ED Exam Narrative Physical exam: GENERAL APPEARANCE: AxOx4, generally well-appearing, no acute distress. HEENT: NC, AT. MMM. EOMI, clear conjunctiva, oropharynx clear. NECK: Supple without lymphadenopathy. No stiffness or restricted ROM. HEART: Normal rate and regular rhythm, normal S1/S1, no m/r/g LUNGS: CTAB, moving air well. No crackles or wheezes are heard. ABDOMEN: Soft, nontender, nondistended with good bowel sounds heard. BACK: No midline C/T/L spine pain or deformity, No CVAT, no obvious deformity. EXTREMITIES: Without cyanosis, clubbing or edema. MUSCULOSKELETAL: FROM of all major joints, no chest tenderness NEUROLOGICAL: Grossly nonfocal. Alert and oriented, moving all 4 extremities. CN not formally tested but appear grossly intact. Observed to ambulate with normal gait. Skin: Warm and dry without any rash. Course Quality Measures none Reevaluation(s) Reevaluation #1: Reviewed records and all the visits patient has been here his blood pressure has been high, systolic 190's. Time: 13:26 Vital Signs Vital signs: Vital Signs Temperature 97.8 F 10/11/24 08:58 Pulse Rate 70 10/11/24 08:58 Respiratory Rate 12 10/11/24 08:58 Blood Pressure 247/118 H 10/11/24 08:58 Pulse Oximetry (%) 99 10/11/24 08:58 Oxygen Delivery Method Room Air 10/11/24 08:58 [facility] Patient data External records reviewed:: [facility] previous records (Reviewed nephrology note by Dr. Bustos, dated 08/25/24.) Clinical information provided by:: patient Social determinants that could affect healthcare access:: none Patient has the following chronic illnesses:: Hypertension, diabetes, dyslipidemia, ESRD has been on dialysis for the last few months under Dr. Bustos. How is presenting disease/condition affected by chronic disease/condition?: exacerbated by Evaluation data The following diagnostics were reviewed and interpreted by me:: other (specify) (none) Lab and/or radiology exams considered but not ordered:: none Interpretation Summary: n/a Medications Medications considered but not ordered:: none Medication administrations:: none Consultations Consultation(s) initiated? (list below): No Diagnosis Differential Diagnosis ED Complaint MDM: hypertensive emergency, hypertension urgency Most likely diagnosis given after review of the tests above:: Hypertension Admission Indicated Admission indicated?: not indicated Explain why admission is indicated or not indicated:: Patient has no emergent abnormalities on his studies and can be managed on an outpatient basis. Admission Request Was there a request for admission?: No Disposition Plan Disposition Plan: Discharge Discharge Attestation Discharge Attestation: The patient and all family members were given an opportunity to ask questions and understood the discharge instructions. Discharge instructions specifically effects, indications for sooner follow up or return to the emergency department, and the expected course of current diagnosis. Patient condition: Stable Medical Decision Making Differential Diagnosis Differential Diagnosis: hypertensive emergency, hypertension urgency Discharge Plan Plan Patient Disposition: HOME (Self Care) Prescriptions/Referrals Prescriptions/Med Rec: No Action aspirin 81 mg tablet,delayed release (DR/EC) 81 mg PO DAILY Patient Comments: TOME JALEEL TABLETA TODOS LOS D FOR 90 DAYS Januvia 25 mg tablet 25 mg PO QDAY albuterol sulfate 90 mcg/actuation HFA aerosol inhaler 1 puff INHALATION Q4H PRN (Reason: Shortness Of Breath Or Wheezing) Patient Comments: INHALE UN SOPLIDO INTO THE LUNGS CADA CUATRO HORAS CUANDO SEA NECESARIO FOR 30 DAYS metoprolol succinate 100 mg Tablet Extended Release 24 Hr 100 mg PO QDAY clonidine HCl 0.2 mg Tablet 0.2 mg PO BID Alvina-Ming 0.8 mg Tablet 1 tab PO QDAY hydralazine 100 mg tablet 100 mg PO TID@0800,1600,2300 Qty: 90 0RF atorvastatin 80 mg Tablet 80 mg PO QDAY nifedipine 90 mg tablet extended release 90 mg PO BID ferrous sulfate 325 mg (65 mg iron) tablet 325 mg PO Q OTHER DAY Edarbi 80 mg tablet 80 mg PO QAM Problem List Clinical Impression: Hypertension Patient/Caregiver Discharge Instructions Education Materials: ED Hypertension, Established Additional Instructions: [place] todos angela medicamentos caseros al regresar. Puede reprogramar dodson cirug?a y asegurarse de dotty angela medicamentos para la presi?n arterial por la ma?rosanna, antes de dodson pr?xima juancarlos. Puede regresar a urgencias antes si presenta alguna complicaci?n. Print Language: Welsh Stand Alone Forms: Atiya Award Info., Patient Portal Info Letter
[2024-10-11 11:41] VITALS: BP 201/90; PULSE 78; RESP 12; TEMP 36.6; O2SAT 98
[2024-10-11 12:11] VITALS: BP 198/88; PULSE 81; RESP 12
--- NOTE | 2024-10-11 13:15 | PC.NURSE ---
BP OF 231/[address] RODRIGUEZ[address] PER DR MICHAEL GARNICA TO SEND PT HOME WITH INSTRUCTIONS TO TAKE HOME BP MEDS
== END 2024-10-11 13:47 | disposition home or self-care (01) ==
LOC: SERX 10:50
PROVIDERS: Emergency Provider Emergency Medicine; PCP Physician Assistant
DX: I13.2 Hypertensive heart and chronic kidney disease with heart failure and with stage 5 chronic kidney disease, or end stage renal disease (principal); I50.9 Heart failure, unspecified; N18.6 End stage renal disease; E11.22 Type 2 diabetes mellitus with diabetic chronic kidney disease; E78.00 Pure hypercholesterolemia, unspecified; Z99.2 Dependence on renal dialysis
CPT/HCPCS: 99281

== ENCOUNTER → 2024-10-11 | Day surgery (SDC) | payer MEDICAID, SELFPAY ==
[2024-10-05 09:28] VITALS: BMI 25.3
[2024-10-05 11:35] LABS: Basophils % (Auto) 0 % (0-2.5); Eosinophils # (Auto) 0.1 Thou/mm3 (0.0-0.5); Eosinophils % (Auto) 2 % (0-10); Hematocrit 37.5 % (41.0-53.0); Hemoglobin 11.8 g/dL (13.5-16.0); Immature Granulocytes % (Auto) 0 % (0-0); Immature Granulocytes Auto 0.02 Thou/mm3 (0.00-0.00); Lymphocytes # (Auto) 1.2 Thou/mm3 (1.0-4.8); Lymphocytes % (Auto) 17 % (10-50); Mean Corpuscular HGB Conc 31.5 g/dl (31.0-37.0); Mean Corpuscular Hemoglobin 27.9 pg (25.0-35.0); Mean Corpuscular Volume 89 fL (80-100); Monocytes # (Auto) 0.5 Thou/mm3 (0.0-0.8); Monocytes % (Auto) 7 % (0-12); Neutrophils # (Auto) 5.3 Thou/mm3 (1.8-7.7); Neutrophils % (Auto) 74 % (37-80); Nucleated Red Blood Cell % 0 /100 WBC (0); Platelet Count 244 Thou/mm3 (140-440); RDW Standard Deviation 49.6 fL (35.1-43.9); Red Blood Count 4.23 Miln/mm3 (4.50-5.90); White Blood Count 7.3 Thou/mm3 (3.8-10.6)
[2024-10-05 11:52] LABS: Alanine Aminotransferase 37 U/L (10-49); Albumin, Serum 3.8 gm/dL (3.5-5.0); Albumin/Globulin Ratio 1.3 (1.2-2.2); Alkaline Phosphatase 191 U/L (46-116); Anion Gap 11 (7-16); Aspartate Amino Transferase 32 U/L (0-34); BUN/Creatinine Ratio 7 Ratio (12-20); Bilirubin,Total 0.2 mg/dL (0.3-1.2); Blood Urea Nitrogen 30 mg/dL (9-23); Calcium 8.6 mg/dL (8.3-10.6); Calcium (Corrected) 8.8 mg/dL (8.5-10.1); Carbon Dioxide 28.6 mMol/L (20.0-31.0); Chloride 100 mMol/L (98-107); Creatinine (Component) 4.3 mg/dL (0.6-1.3); Estimated Creatinine Clearance 15.1 mL/min (>60); Globulin 2.9 gm/dL (2.3-3.5); Glucose 202 mg/dL (74-106); Osmolality,Calculated 291 (275-295); Potassium 4.2 mMol/L (3.4-5.1); Sodium 140 mMol/L (136-145); Total Protein 6.7 gm/dL (5.7-8.2); eGFR 15 See Note
[2024-10-05 11:53] LABS: Partial Thromboplastin Time 28.4 Seconds (22.0-36.0)
--- NOTE | 2024-10-10 14:25 | SUR.PREOP ---
Cardiac records reviewed with Dr Michel.
[2024-10-11 08:50] VITALS: BP 249/129; PULSE 73; RESP 12; TEMP 36.2; O2SAT 97
--- NOTE | 2024-10-11 08:54 | SUR.PREOP ---
AT 0825 NURSE ENTERED ROOM 204A, PATIENT LAYING IN [facility], NO DISTRESS NOTED, UPON ACQUIRING VITAL SIGNS BS 190MG/dL, T 97.2, HR 73, BP 249/129, RR 12, GRZEGORZ MADE AWARE, PROCEDURE CANCELLED PER DR LANTIGUA. MEDICAL RESPONSE CALLED AT 0834, TEAM ARRIVED AT 0838. PATIENT WAS D/C FOR FLEX CARE AND TAKEN TO ER VIA WHEEL CHAIR ACOMANPNIED BY MEDICAL RESPONSE TEAM.
== END | disposition home or self-care (01) ==
LOC: S2EX 08:20
PROVIDERS: Anesthesiology; PCP Physician Assistant; Referring Provider Surgery Vascular Surgery; Visit Provider Surgery Vascular Surgery
PROC: (CPT 36832; principal; 2024-10-11 09:00)
DX: N18.6 End stage renal disease (principal)
CPT/HCPCS: 36832; 36415; 80053; 84132; 85025; 85610; 85730

== ENCOUNTER 2024-10-18 11:45 | Inpatient (IN) | payer MEDICAID, SELFPAY ==
[2024-10-18] VITALS (49 sets, daily range): BP systolic 97–199; BP diastolic 54–111; PULSE 38–120; RESP 0–97; TEMP 35.1–36.9; O2SAT 94–99; BMI 29.2; BMI 24.5
--- NOTE | 2024-10-18 11:51 | EKG_ITS ---
[facility] Test Date: 2024-10-18 Pat Name: PAIGE GANDHI Department: Room: - Gender: Male [employer]: : 1965 Requested By: ED Temporary Provider Order Number: [id number] Reading MD: ED Temporary Provider Measurements Intervals [place] Rate: 38 P: 44 IN: 170 QRS: 83 QRSD: 100 T: 33 QT: 536 QTc: 430 Interpretive Statements SINUS BRADYCARDIA CRITICAL TEST RESULT No previous ECG available for comparison /store/S0/[id number]/ecg/[id number].pdf
--- NOTE | 2024-10-18 12:04 | XR_ITS ---
Examination: AP chest single view Technique one AP portable upright chest single view Exam date and time: October 18, 2024 1233 hours INDICATIONS: Hypertension syncopal episode this morning FINDINGS: Mild prominence left ventricle Mild vascular congestion Right internal jugular dialysis catheter satisfactory position No pulmonary edema IMPRESSION: Mild vascular congestion
--- NOTE | 2024-10-18 12:39 | PD.EDADULT ---
ED General RME/HPI General Chief complaint: General Adult/Misc Complain Stated complaint: BRADYCARDIA (SENT BY PCP) Time Seen by Provider: 10/18/24 12:45 Arrival date/time: 10/18/24 11:45 RME / HPI RME / HPI narrative: 59 year old male with history of ESRD on HD T//Tue, hypertension, hyperlipidemia, diabetes presents to the ED sent by dialysis center for bradycardia today. Patient reports he was at the dialysis clinic for his scheduled dialysis. However, it was noted while there his heart rate was in the mid 30's and advised to come here for further evaluation. While in the ED patient has no other complaints. Denies fevers, chills, sweats, chest pain, shortness of breath, abdominal pain, n/v. Patient reports he became hypotensive during his last dialysis treatment Tuesday and completed the full 3.5 hours. Related Data Home Medications ?Medication ?Instructions ?Recorded ?Confirmed aspirin 81 mg tablet,delayed 81 mg PO DAILY 01/30/23 10/18/24 release albuterol sulfate 90 mcg/actuation 1 puff inhalation Q4H PRN 01/09/24 10/18/24 aerosol inhaler Shortness Of Breath Or Wheezing sitagliptin phosphate 25 mg tablet 25 mg PO QDAY 01/09/24 10/18/24 (Januvia) clonidine HCl 0.2 mg tablet 0.2 mg PO BID 04/17/24 10/18/24 Held on 10/20/24. Instructions: Resume on 11/03/24. 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 vitamin B complex-vitamin C-folic 1 tab PO QDAY 04/17/24 10/18/24 acid 0.8 mg tablet (Alvina-Ming) atorvastatin 80 mg tablet 80 mg PO QDAY 07/04/24 10/18/24 azilsartan medoxomil 80 mg tablet 80 mg PO QAM 10/05/24 10/05/24 (Edarbi) ferrous sulfate 325 mg (65 mg 325 mg PO Q OTHER DAY 10/05/24 10/18/24 iron) tablet Previous Rx's ?Medication ?Instructions ?Recorded hydralazine 100 mg tablet 100 mg PO TID@0800,1600,2300 #90 04/23/24 tabs carvedilol 12.5 mg tablet 12.5 mg PO BIDWM 30 days #60 tabs 10/20/24 nifedipine 90 mg tablet,extended 90 mg PO DAILY 30 days #0 tabs 10/21/24 release Allergies Allergy/AdvReac Type Severity Reaction Status Date / Time No Known Allergies Allergy Verified 10/18/24 11:49 Review of Systems Review of Systems Narrative Review of Systems: Gen: No fever, no chills, no weight loss EYES: No discharge, no visual changes, no pain HEENT: No ear pain, no congestion, no sore throat PULM: no shortness of breath, no cough, no congestion CV: No chest pain, no dyspnea on exertion, no palpitations, no chest tightness GI: No nausea, no vomiting, no diarrhea, no pain, no constipation : No frequency, no urgency,? no dysuria Musc/skel: No joint pain, no back pain Skin: No rash, no ecchymosis, no lesions Neuro: No weakness, no headache Past Medical History Past Medical History CARDIAC: Positive Cardiac Disorders, Hypercholesterolemia, Congestive Heart Failure and Hypertension GENITOURINARY: Positive Genitourinary Disorders, Renal Disease and Dialysis (//Tue) ENDOCRINE: Positive Endocrine Disorders and Diabetes Mellitus Type 2 HEMATOLOGIC: Positive Blood Disorders and Anemia PSYCHO/SOCIAL: Positive Depression OTHER HISTORY: Positive Hospitalization and Autoimmune Disease Family History FAMILY HISTORY: Positive Family Cardiac Disorders Social History SMOKING STATUS: Never smoker SUBSTANCE USE: does not use ED Exam Narrative Physical exam: GENERAL APPEARANCE: Appears lethargic, oriented x4, no obvious distress, nontoxic appearing HEENT: NC, AT. MMM. EOMI, clear conjunctiva, oropharynx clear. NECK: Supple without lymphadenopathy. No stiffness or restricted ROM. HEART: Normal rate and regular rhythm, normal S1/S1, no m/r/g CHEST: left upper chest dialysis tunnel catheter c/d/i LUNGS: CTAB, moving air well. No crackles or wheezes are heard. ABDOMEN: Soft, nontender, nondistended with good bowel sounds heard. BACK: No midline C/T/L spine pain or deformity, No CVAT, no obvious deformity. EXTREMITIES: Without cyanosis, clubbing or edema. MUSCULOSKELETAL: FROM of all major joints, no chest tenderness NEUROLOGICAL: Grossly nonfocal. Alert and oriented, moving all 4 extremities. CN not formally tested but appear grossly intact. Skin: Warm and dry without any rash. Course Quality Measures none Orders Category Date Time Status Admit to Inpatient Status Routine Admission 10/18/24 15:31 Active Patient Condition Routine Admission 10/18/24 15:31 Ordered Activity as Tolerated Routine Care 10/18/24 15:32 Ordered Apply Pacer Pads NOW Care 10/18/24 15:34 Completed Bedside Blood Glucose Q2HX3 Care 10/18/24 14:32 Completed COVID-19 Screening Questionnaire NOW Care 10/18/24 14:57 Completed Music Internship NOW Care 10/18/24 12:04 Completed Continuous Pulse Oximetry NOW Care 10/18/24 15:30 Completed Decision to Admit X1 Care 10/18/24 14:57 Completed EKG (ED ONLY) *Do not use* NOW Care 10/18/24 11:51 Completed Insert IV NOW Care 10/18/24 12:24 Completed Miscellaneous Nursing Order NOW Care 10/18/24 15:42 Completed Miscellaneous Nursing Order NOW Care 10/18/24 15:47 Completed Notify provider NEEDED Care 10/18/24 15:31 Completed Obtain weight daily Care 10/18/24 15:32 Completed Seizure precautions NEEDED Care 10/18/24 15:32 Completed CA echo doppler complete Stat Exams 10/19/24 15:30 Completed EKG (ED Only) Stat Exams 10/18/24 11:51 Draft XR chest 1V portable Stat Exams 10/18/24 12:04 Completed B-Type Natriuretic Peptide Stat Lab 10/18/24 12:15 Completed Blood Culture (Lab) Stat Lab 10/18/24 12:54 Completed CBC AM DRAW Lab 10/19/24 04:51 Completed CBC AM DRAW Lab 10/20/24 04:45 Completed CBC Stat Lab 10/18/24 12:54 Completed CMP [Comprehensive Metabolic Panel] Stat Lab 10/18/24 16:10 Completed Comprehensive Metabolic Panel AM DRAW Lab 10/19/24 04:51 Completed Comprehensive Metabolic Panel AM DRAW Lab 10/20/24 04:45 Completed Comprehensive Metabolic Panel Routine Lab 10/18/24 12:54 Completed Lactate (Lactic Acid) Stat Lab 10/18/24 12:54 Completed Lipid Panel AM DRAW Lab 10/19/24 04:51 Completed Magnesium AM DRAW Lab 10/19/24 04:51 Completed Magnesium AM DRAW Lab 10/20/24 04:45 Completed Magnesium Routine Lab 10/18/24 12:54 Completed Partial Thromboplastin Time AM DRAW Lab 10/19/24 04:51 Completed Phosphorous AM DRAW Lab 10/19/24 04:51 Completed Phosphorous AM DRAW Lab 10/20/24 04:45 Completed Procalcitonin Stat Lab 10/18/24 12:54 Completed Prothrombin Time with INR AM DRAW Lab 10/19/24 04:51 Completed Troponin I Q8H Lab 10/18/24 16:10 Completed Troponin I Q8H Lab 10/18/24 23:27 Completed Troponin I Routine Lab 10/18/24 12:54 Completed ALBUTEROL RT 3ml [Proventil Rt 3ml] Med 10/18/24 14:33 Discontinued 5 mg INH X1 ONE ALBUTEROL RT 3ml [Proventil Rt 3ml] Med 10/18/24 15:14 Discontinued 5 mg INH X1 ONE Acetaminophen Tab [Tylenol Tab] Med 10/18/24 15:30 Discontinued 650 mg PO Q6H PRN Atropine Inj SYR Med 10/18/24 15:35 Discontinued 0.5 mg IVP Q3M PRN Calcium Chloride 10% Abboject Med 10/18/24 14:32 Discontinued 10 ml IV X1 ONE Calcium Gluconate 10% Inj Med 10/18/24 14:20 Discontinued 1 gm IV X1 ONE Dextrose 10%-Water 1000 ml [D10w 1000 ml] 1,000 ml Med 10/18/24 14:45 Discontinued IV 100 mls/hr Dextrose 50% Syr [D50w Syringe Abboject] Med 10/18/24 14:32 Discontinued 25 ml IV Q15MIN PRN Dextrose 50% Syr [D50w Syringe Abboject] Med 10/18/24 14:32 Discontinued 50 ml IV Q15MIN PRN Heparin Inj Med 10/18/24 22:00 Discontinued 5,000 unit SC Q8HR Insulin Regular Med 10/18/24 14:32 Discontinued 5 unit IV X1 ONE Morphine Inj Med 10/18/24 14:35 Discontinued 4 mg IVP X1 ONE Ondansetron Inj [Zofran Inj] Med 10/18/24 14:17 Discontinued 4 mg .ROUTE .STK-MED ONE Ondansetron Inj [Zofran Inj] Med 10/18/24 15:30 Discontinued 4 mg IV Q6H PRN Ondansetron Inj [Zofran Inj] Med 10/18/24 14:26 Discontinued 4 mg IV X1 ONE Pantoprazole Inj [Protonix Inj] Med 10/19/24 09:00 Discontinued 40 mg IVP QDAY Sod Polystyrene Sulfon Susp [Kayexalate Susp] Med 10/18/24 14:32 Discontinued 30 gm TN X1 ONE Sodium Bicarb 8.4% SYR Med 10/18/24 14:32 Discontinued 50 ml IV X1 ONE levETIRAcetam INJ [Keppra Inj] Med 10/18/24 14:17 Discontinued 1,000 mg .ROUTE .STK-MED ONE levETIRAcetam INJ [Keppra Inj] Med 10/18/24 14:26 Discontinued 1,000 mg IVP X1 ONE Code Status Routine Oth 10/18/24 15:30 Completed Oxygen Delivery PRN RT 10/18/24 15:30 Completed Reevaluation(s) Reevaluation #1: On reassessment, it was noted all labs were resulted except CMP. I called lab and stated the blood was hemolyzed and would need to be redrawn. Time: 14:02 Reevaluation #2: I was called in to the room, RN reports patients heart rate is dropping down to high 20's. While in the room patient became unresponsive and a code blue was called although patient was still blinking and swallowing. Patient was given Calcium Chloride and Atropine x2. During that time it appeared patient had a seizure and also ordered for 1g of Keppra. Patient woke up after we began externally pacing. Time: 14:24 Vital Signs Vital signs: Vital Signs Temperature 95.1 F L 10/18/24 12:25 Pulse Rate 38 L 10/18/24 12:25 Respiratory Rate 16 10/18/24 12:25 Blood Pressure 102/61 10/18/24 12:25 Pulse Oximetry (%) 98 10/18/24 12:25 Oxygen Delivery Method Room Air 10/18/24 12:25 Pulse ox is 98% on room air which is adequate. [facility] Patient data External records reviewed:: [facility] previous records (I reviewed ED visit from 10/11/2024) Clinical information provided by:: patient and EMS Social determinants that could affect healthcare access:: none Patient has the following chronic illnesses:: ESRD on HD T/Th/Tue, hypertension, hyperlipidemia, diabetes How is presenting disease/condition affected by chronic disease/condition?: exacerbated by Evaluation data The following diagnostics were reviewed and interpreted by me:: lab results, radiology exam(s) and EKG tracing(s) (sinus bradycardia, rate 38, no acute ST or T-wave changes, no STEMI. ) Lab and/or radiology exams considered but not ordered:: None Interpretation Summary: Ordering Physician: Romana GALLARDO),Apollo AMAYA Date of Service: 10/18/24 Procedure(s): XR chest 1V portable Accession Number(s): [id number] cc: Romana GALLARDO),Apollo AMAYA; Aric Stacy MD~ Examination: AP chest single view Technique one AP portable upright chest single view Exam date and time: October 18, 2024 1233 hours INDICATIONS: Hypertension syncopal episode this morning FINDINGS: Mild prominence left ventricle Mild vascular congestion Right internal jugular dialysis catheter satisfactory position No pulmonary edema IMPRESSION: Mild vascular congestion Dictated By:Aric Stacy MD Signed By:<Electronically signed by Aric Stacy MD in OV>10/18/24 1239 Medications Medications considered but not ordered:: None Medication administrations:: Medication Administration History Discontinued Medications Acetaminophen (Acetaminophen 325 Mg Tablet) 650 mg PO Q6H PRN PRN Reason: Fever >101.5 Stop: 11/17/24 15:29 Last Admin: 10/18/24 19:57 Dose: 650 mg Documented By: HAILE Albuterol (Albuterol Rt 2.5 Mg/3 Ml Nebu) 5 mg INH X1 ONE Stop: 10/18/24 14:34 Last Admin: 10/18/24 16:52 Dose: Not Given Documented By: DB Non-Admin Reason: Cancelled by Provider Albuterol (Albuterol Rt 2.5 Mg/3 Ml Nebu) 5 mg INH X1 ONE Stop: 10/18/24 15:15 Last Admin: 10/18/24 16:33 Dose: 5 mg Documented By: MR Albuterol (Albuterol Inh 8 Gm) 1 puff INH Q4H PRN PRN Reason: Shortness Of Breath Or Wheezing Stop: 11/18/24 14:21 Aspirin (Aspirin Ec 81 Mg Tabec) 81 mg PO DAILY TAMIA Stop: 11/19/24 08:59 Last Admin: 10/20/24 12:33 Dose: 81 mg Documented By: GLEN Atorvastatin Calcium (Atorvastatin Calcium 20 Mg Tablet) 80 mg PO QDAY REPLACED BY [facility] Stop: 11/18/24 08:59 Last Admin: 10/20/24 12:33 Dose: 80 mg Documented By: Admin: 10/19/24 08:43 Dose: 80 mg Documented By: DION Atropine Sulfate (Atropine Sulf Inj 0.1 Mg/Ml Syr 10 Ml) 0.5 mg IVP Q3M PRN PRN Reason: bradicardia Calcium Chloride (Calcium Chloride 10% Inj 10 Ml Syrg) 10 ml IV X1 ONE Stop: 10/18/24 14:33 Last Admin: 10/18/24 14:46 Dose: 10 ml Documented By: BECKY Calcium Gluconate (Calcium Gluconate 10% Inj 1 Gm/10 Ml Vial) 1 gm IV X1 ONE Stop: 10/18/24 14:21 Last Admin: 10/18/24 16:53 Dose: Not Given Documented By: DAY Non-Admin Reason: Cancelled by Provider Carvedilol (Carvedilol 12.5 Mg Tablet) 12.5 mg PO BIDWM REPLACED BY [facility] Stop: 11/19/24 06:59 Last Admin: 10/20/24 12:41 Dose: Not Given Documented By: JRR Non-Admin Reason: Medication Not Available Admin: 10/20/24 12:33 Dose: Not Given Documented By: GLEN Non-Admin Reason: Held for Dialysis Dextrose (Dextrose 50%-Water Inj 50 Ml Syringe) 25 ml IV Q15MIN PRN PRN Reason: BG 50-70 responsive npo pt Stop: 11/17/24 14:31 Dextrose (Dextrose 50%-Water Inj 50 Ml Syringe) 50 ml IV Q15MIN PRN PRN Reason: BG <50 OR BG <70 & pt unresponsive Stop: 11/17/24 14:31 Ferrous Sulfate (Ferrous Sulf 325 Mg Tablet) 325 mg PO QOD TAMIA Stop: 11/18/24 14:29 Last Admin: 10/19/24 15:40 Dose: 325 mg Documented By: GLEN Glucagon (Glucagon Inj 1 Mg Vial) 1 mg IM Q15MIN PRN PRN Reason: BG <70, and no IV access Heparin Sodium (Porcine) (Heparin Sod Inj 5000 Unit/Ml Vial) 5,000 unit SC Q8HR REPLACED BY [facility] Stop: 11/01/24 21:59 Last Admin: 10/20/24 13:51 Dose: 5,000 unit Documented By: GLEN Co-signed By: MADALYN Admin: 10/20/24 05:12 Dose: 5,000 unit Documented By: SYLVIA Co-signed By: LILI Admin: 10/19/24 21:18 Dose: 5,000 unit Documented By: SYLVIA Co-signed By: NQ Admin: 10/19/24 15:40 Dose: 5,000 unit Documented By: GLEN Co-signed By: HENRY Admin: 10/19/24 05:21 Dose: 5,000 unit Documented By: HAILE Co-signed By: JEAN CLAUDE Admin: 10/18/24 21:52 Dose: 5,000 unit Documented By: HAILE Co-signed By: CONSTANTINE Heparin Sodium (Porcine) (Heparin Sod Inj 1000 Unit/Ml Vial 10 Ml) 3,500 unit INDWELLCAT PRN PRN PRN Reason: DIALYSIS Stop: 11/01/24 21:12 Last Admin: 10/18/24 21:50 Dose: 3,500 unit Documented By: CONSTANTINE Co-signed By: HAILE Hydralazine HCl (Hydralazine Inj 20 Mg/Ml Vial) 10 mg IV Q6H PRN PRN Reason: hypertension Stop: 11/17/24 17:59 Last Admin: 10/19/24 02:05 Dose: 10 mg Documented By: Admin: 10/18/24 19:59 Dose: 10 mg Documented By: HAILE Hydralazine HCl (Hydralazine Inj 20 Mg/Ml Vial) 10 mg IV Q4HR PRN PRN Reason: hypertension Stop: 11/17/24 17:45 Last Admin: 10/20/24 13:58 Dose: 10 mg Documented By: Admin: 10/19/24 19:02 Dose: 10 mg Documented By: Admin: 10/19/24 10:47 Dose: 10 mg Documented By: Admin: 10/19/24 06:29 Dose: 10 mg Documented By: HAILE Hydralazine HCl (Hydralazine Hcl 25 Mg Tablet) 100 mg PO TID@0800,1600,2300 REPLACED BY [facility] Stop: 11/18/24 07:59 Last Admin: 10/20/24 15:10 Dose: 100 mg Documented By: Admin: 10/20/24 12:34 Dose: Not Given Documented By: GLEN Non-Admin Reason: Held for Dialysis Admin: 10/19/24 22:53 Dose: 100 mg Documented By: Admin: 10/19/24 15:42 Dose: 100 mg Documented By: Admin: 10/19/24 08:42 Dose: 100 mg Documented By: DION Dextrose (D10w 1000 Ml) 1,000 mls @ 100 mls/hr IV .Q10H TAMIA Last Admin: 10/18/24 15:57 Dose: Not Given Documented By: BECKY Non-Admin Reason: Change of Condition Albumin Human (Albuminar-25 Ivpb) 25 gm in 100 mls @ 100 mls/min IV PRN PRN PRN Reason: DIALYSIS Dopamine HCl/Dextrose (Intropin In D5w Ivpb) 400 mg in 250 mls @ 11.775 mls/hr IV .[id number] TAMIA; Protocol Stop: 11/17/24 21:35 Dopamine HCl/Dextrose (Intropin In D5w Ivpb) 400 mg in 250 mls @ 11.775 mls/hr IV .[id number] PRN; Protocol PRN Reason: BRADYCARDIA Stop: 11/17/24 21:35 Magnesium Sulfate (Magnesium Sulfate Ivpb) 2 gm in 50 mls @ 25 mls/hr IV X1 ONE Stop: 10/19/24 17:13 Last Admin: 10/19/24 15:40 Dose: 25 mls/hr Documented By: GLEN Insulin Human Lispro (Insulin Lispro (Admelog) 1 Unit/0.01 Ml Unit) 0 unit SC Q6HR TAMIA; Protocol Stop: 11/17/24 18:29 Last Admin: 10/19/24 17:01 Dose: 2 unit Documented By: GLEN Co-signed By: CARTER Admin: 10/19/24 12:46 Dose: Not Given Documented By: DION Non-Admin Reason: Per Protocol Admin: 10/19/24 05:12 Dose: Not Given Documented By: HAILE Non-Admin Reason: Per Protocol Admin: 10/18/24 23:40 Dose: Not Given Documented By: HAILE Non-Admin Reason: Per Protocol Admin: 10/18/24 18:43 Dose: 3 unit Documented By: DION Co-signed By: HAILE Insulin Human Lispro (Insulin Lispro (Admelog) 1 Unit/0.01 Ml Unit) 0 unit SC ACHS TAMIA; Protocol Stop: 11/17/24 18:29 Last Admin: 10/20/24 12:35 Dose: 1 unit Documented By: GLEN Co-signed By: DANELLE Admin: 10/20/24 07:39 Dose: 1 unit Documented By: GLEN Co-signed By: AIDA Admin: 10/19/24 21:21 Dose: 1 unit Documented By: SYLVIA Co-signed By: NQ Insulin Human Regular (Insulin Hum Regular 1 Unit/0.01 Ml (Per Unit)) 5 unit IV X1 ONE Stop: 10/18/24 14:33 Last Admin: 10/18/24 14:43 Dose: 5 unit Documented By: BECKY Co-signed By: ALICIA Levetiracetam (Levetiracetam Inj 100 Mg/Ml Vial 5ml) 1,000 mg IVP X1 ONE Stop: 10/18/24 14:27 Last Admin: 10/18/24 14:30 Dose: 1,000 mg Documented By: BECKY Levetiracetam (Levetiracetam Inj 100 Mg/Ml Vial 5ml) Confirm Administered Dose 1,000 mg .ROUTE .STK-MED ONE Stop: 10/18/24 14:18 Last Admin: 10/18/24 14:39 Dose: Not Given Documented By: BECKY Non-Admin Reason: Duplicate Medication on eMAR Lisinopril (Lisinopril 20 Mg Tablet) 20 mg PO QDAY REPLACED BY [facility] Stop: 11/18/24 14:29 Last Admin: 10/20/24 12:32 Dose: 20 mg Documented By: Admin: 10/19/24 15:41 Dose: 20 mg Documented By: GLEN Metoprolol Succinate (Metoprolol Succinate Xl 25 Mg Tabcr) 100 mg PO QDAY TAMIA Stop: 11/18/24 08:59 Last Admin: 10/19/24 08:42 Dose: 100 mg Documented By: DION Metoprolol Succinate (Metoprolol Succinate Xl 25 Mg Tabcr) 100 mg PO QDAY TAMIA Stop: 11/18/24 08:59 Morphine Sulfate (Morphine Sulf Inj 10 Mg/Ml Vial) 4 mg IVP X1 ONE Stop: 10/18/24 14:36 Last Admin: 10/18/24 15:06 Dose: 4 mg Documented By: BECKY Nifedipine (Nifedipine Xl 30 Mg Tabcr) 30 mg PO QDAY TAMIA Stop: 11/18/24 13:14 Last Admin: 10/19/24 13:16 Dose: 30 mg Documented By: DION Nifedipine (Nifedipine Xl 30 Mg Tabcr) 60 mg PO QDAY REPLACED BY [facility] Stop: 11/19/24 08:59 Nifedipine (Nifedipine Xl 30 Mg Tabcr) 30 mg PO X1 ONE Stop: 10/19/24 14:19 Last Admin: 10/19/24 15:40 Dose: 30 mg Documented By: GLEN Nifedipine (Nifedipine Xl 30 Mg Tabcr) 90 mg PO QDAY REPLACED BY [facility] Stop: 11/19/24 08:59 Last Admin: 10/20/24 12:32 Dose: 90 mg Documented By: GLEN Nifedipine (Nifedipine Xl 30 Mg Tabcr) 30 mg PO X1 ONE Stop: 10/19/24 17:11 Last Admin: 10/19/24 17:33 Dose: 30 mg Documented By: GLEN Ondansetron HCl (Ondansetron Inj 2 Mg/Ml Inj 2 Ml) 4 mg IV X1 ONE; Protocol Stop: 10/18/24 14:27 Last Admin: 10/18/24 14:31 Dose: 4 mg Documented By: BECKY Ondansetron HCl (Ondansetron Inj 2 Mg/Ml Inj 2 Ml) Confirm Administered Dose 4 mg .ROUTE .STK-MED ONE Stop: 10/18/24 14:18 Last Admin: 10/18/24 14:37 Dose: Not Given Documented By: BECKY Non-Admin Reason: Duplicate Medication on eMAR Ondansetron HCl (Ondansetron Inj 2 Mg/Ml Inj 2 Ml) 4 mg IV Q6H PRN; Protocol PRN Reason: NAUSEA OR VOMITING Stop: 11/17/24 15:29 Last Admin: 10/19/24 07:41 Dose: 4 mg Documented By: DION Pantoprazole Sodium (Pantoprazole Inj 40 Mg Vial) 40 mg IVP QDAY REPLACED BY [facility] Stop: 11/18/24 08:59 Last Admin: 10/20/24 12:31 Dose: 40 mg Documented By: GLEN Comments: all 0900 meds given,late,went to dialysis Admin: 10/19/24 08:43 Dose: 40 mg Documented By: DION Sodium Bicarbonate (Sodium Bicarb Inj 8.4% Syr 50 Ml Syringe) 50 ml IV X1 ONE Stop: 10/18/24 14:33 Last Admin: 10/18/24 14:44 Dose: 50 ml Documented By: BECKY Sodium Polystyrene Sulfonate (Sod Polystyrene Sulfon Susp 15 Gm/60 Ml Btl) 30 gm TN X1 ONE Stop: 10/18/24 14:33 Last Admin: 10/18/24 14:45 Dose: 30 gm Documented By: BECKY Vitamin B Complex/Vit C/Folic Acid (Vit B12/Vit C/Fa (Nephrovite) Tablet) 1 tab PO QDAY TAMIA Stop: 11/19/24 08:59 Last Admin: 10/20/24 12:33 Dose: 1 tab Documented By: GLEN See above Consultations Consultation(s) initiated? 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 Discussed patients PMHx, HPI, ED course, exam findings, labs results. States she will put in an order for emergent dialysis and advised admitting to the ICU. Time: 14:43 Consultation #2 (Physician, Specialty, Details): I spoke with resident working with professor of environmental engineering Dr. Newell. Discussed patients PMHx, HPI, ED course, exam findings, labs, and radiology results. The professor of environmental engineering accept the patient for admission. Time: 14:45 Diagnosis Differential Diagnosis ED Complaint MDM: hyperkalemia, hypokalemia, uremia, heart block Most likely diagnosis given after review of the tests above:: Hyperkalemia ESRD Symptomatic bradycardia Hypothermia Admission Indicated Admission indicated?: indicated Explain why admission is indicated or not indicated:: Further management and treatment of hypothermia and hyperkalemia. Admission Request Was there a request for admission?: Yes Admission Attestation Admission request attestation: Discussed case with [] from Hospitalist service regarding admission. Discussed patients ED course, exam findings, labs, and radiology results. The Hospitalist [agrees,declines] to accept the patient for admission. Disposition Plan Disposition Plan: Admit Medical Decision Making Differential Diagnosis Differential Diagnosis: hyperkalemia, hypokalemia, uremia, heart block Lab Data 10/20/24 04:45 10/20/24 04:45 Labs: Lab Results 10/18/24 10/18/24 10/18/24 Range/Units 12:15 12:54 12:55 WBC 10.6 (3.8-10.6) Thou/mm3 RBC 4.22 L (4.50-5.90) Miln/mm3 Hgb 11.9 L (13.5-16.0) g/dL Hct 36.4 L (41.0-53.0) % MCV 86 (80-100) fL MCH 28.2 (25.0-35.0) pg MCHC 32.7 (31.0-37.0) g/dl RDW Std Deviation 49.1 H (35.1-43.9) fL Plt Count 176 D (140-440) Thou/mm3 Neut % (Auto) 86 H (37-80) % Lymph % (Auto) 9 L (10-50) % [place] % (Auto) 4 (0-12) % Eos % (Auto) 1 (0-10) % Baso % (Auto) 0 (0-2.5) % Neut # (Auto) 9.1 H (1.8-7.7) Thou/mm3 Lymph # (Auto) 1.0 (1.0-4.8) Thou/mm3 [place] # (Auto) 0.4 (0.0-0.8) Thou/mm3 Eos # (Auto) 0.1 (0.0-0.5) Thou/mm3 Baso # (Auto) 0.0 (0.0-0.2) Thou/mm3 Immature Gran # (Auto) 0.03 H (0.00-0.00) Thou/mm3 Absolute Nucleated RBC 0.00 (0.00-0.00) Thou/mm3 Immature Gran % 0 (0-0) % Nucleated RBC % 0 (0) /100 WBC PT Cancelled INR Cancelled APTT Cancelled Sodium 133 L Cancelled (136-145) mMol/L Potassium 7.4 H* Cancelled (3.4-5.1) mMol/L Chloride 97 L Cancelled (98-107) mMol/L Carbon Dioxide 22.9 Cancelled (20.0-31.0) mMol/L Anion Gap 13 Cancelled (7-16) BUN 41 H Cancelled (9-23) mg/dL Creatinine 5.7 H* Cancelled (0.6-1.3) mg/dL Estim Creat Clear Calc 12.8 L Cancelled (>60) mL/min eGFR 11 L* Cancelled (60 - ) See Note BUN/Creatinine Ratio 7 L Cancelled (12-20) Ratio Glucose 416 H* Cancelled (74-106) mg/dL Estimated Ave Glu mg/dL 197 H (80-131) mg/dL Hemoglobin A1c 8.5 H (4.8-6.0) % Hgb Calculated Osmolality 294 Cancelled (275-295) Lactic Acid 2.3 H (0.4-2.0) mMol/L Calcium 8.7 Cancelled (8.3-10.6) mg/dL Corrected Calcium 8.8 Cancelled (8.5-10.1) mg/dL Magnesium 2.0 Cancelled (1.6-2.6) mg/dL Total Bilirubin 0.2 L Cancelled (0.3-1.2) mg/dL AST 71 H Cancelled (0-34) U/L ALT 102 H Cancelled (10-49) U/L Alkaline Phosphatase 211 H Cancelled (46-116) U/L Troponin I 0.189 H* Cancelled (0.0-0.045) ng/mL B-Natriuretic Peptide 979 H* (0-100) pg/mL Total Protein 6.6 Cancelled (5.7-8.2) gm/dL Albumin 3.9 Cancelled (3.5-5.0) gm/dL Globulin 2.7 Cancelled (2.3-3.5) gm/dL Albumin/Globulin Ratio 1.4 Cancelled (1.2-2.2) Procalcitonin 0.22 (0.0-0.49) ng/ml Critical Care Time Critical Care Time Critical Care Time: Yes Total Critical Care Time (min.): 35 Attestation: The high probability of sudden, clinically significant deterioration in the patient's condition required the highest level of my preparedness to intervene urgently. The services I provided to this patient were to treat and/or prevent clinically significant deterioration. Services included the following: chart data review, reviewing nursing notes and/or old charts, documentation time, applications consultant collaboration regarding findings and treatment options, medication orders and management, direct patient care, vital sign assessments and ordering, interpreting and reviewing diagnostic studies and lab tests. Aggregate critical care time includes only time during which I was engaged in work directly related to the patient's care, as described above, whether at bedside or elsewhere in the Emergency Department. It did not include time spent performing other reported procedures or the services of residents, students, nurses or physician assistants. Discharge Plan Plan Patient Disposition: Admit Acute Care w/in Hospital Patient condition on transfer: Stable Problem List Clinical Impression: Hyperkalemia, ESRD (end stage renal disease), Symptomatic bradycardia, Hypothermia Patient/Caregiver Discharge Instructions Diet Instructions: low potassium diet
[2024-10-18 13:03] LABS: Lactate (Lactic Acid) 2.3 mMol/L (0.4-2.0)
[2024-10-18 13:05] LABS: Basophils % (Auto) 0 % (0-2.5); Eosinophils # (Auto) 0.1 Thou/mm3 (0.0-0.5); Eosinophils % (Auto) 1 % (0-10); Hematocrit 36.4 % (41.0-53.0); Hemoglobin 11.9 g/dL (13.5-16.0); Immature Granulocytes % (Auto) 0 % (0-0); Immature Granulocytes Auto 0.03 Thou/mm3 (0.00-0.00); Lymphocytes % (Auto) 9 % (10-50); Mean Corpuscular HGB Conc 32.7 g/dl (31.0-37.0); Mean Corpuscular Hemoglobin 28.2 pg (25.0-35.0); Mean Corpuscular Volume 86 fL (80-100); Monocytes # (Auto) 0.4 Thou/mm3 (0.0-0.8); Monocytes % (Auto) 4 % (0-12); Neutrophils # (Auto) 9.1 Thou/mm3 (1.8-7.7); Neutrophils % (Auto) 86 % (37-80); Nucleated Red Blood Cell % 0 /100 WBC (0); Platelet Count 176 Thou/mm3 (140-440); RDW Standard Deviation 49.1 fL (35.1-43.9); Red Blood Count 4.22 Miln/mm3 (4.50-5.90); White Blood Count 10.6 Thou/mm3 (3.8-10.6)
[2024-10-18 13:18] LABS: B-Type Natriuretic Peptide 979 pg/mL (0-100)
[2024-10-18 13:36] LABS: Procalcitonin 0.22 ng/ml (0.0-0.49)
[2024-10-18 14:14] LABS: Alanine Aminotransferase 102 U/L (10-49); Albumin, Serum 3.9 gm/dL (3.5-5.0); Albumin/Globulin Ratio 1.4 (1.2-2.2); Alkaline Phosphatase 211 U/L (46-116); Anion Gap 13 (7-16); Aspartate Amino Transferase 71 U/L (0-34); BUN/Creatinine Ratio 7 Ratio (12-20); Bilirubin,Total 0.2 mg/dL (0.3-1.2); Blood Urea Nitrogen 41 mg/dL (9-23); Calcium 8.7 mg/dL (8.3-10.6); Calcium (Corrected) 8.8 mg/dL (8.5-10.1); Carbon Dioxide 22.9 mMol/L (20.0-31.0); Chloride 97 mMol/L (98-107); Creatinine (Component) 5.7 mg/dL (0.6-1.3); Estimated Creatinine Clearance 12.8 mL/min (>60); Globulin 2.7 gm/dL (2.3-3.5); Sodium 133 mMol/L (136-145); Total Protein 6.6 gm/dL (5.7-8.2); eGFR 11 See Note
[2024-10-18] MEDS: levETIRAcetam INJ 100 MG/ML VIAL 5ML 1000 MG IVP (14:30)
[2024-10-18] MEDS: ONDANSETRON INJ 2 MG/ML INJ 2 ML 4 MG IV (14:31)
[2024-10-18 14:32] LABS: Glucose 416 mg/dL (74-106); Osmolality,Calculated 294 (275-295); Potassium 7.4 mMol/L (3.4-5.1)
[2024-10-18 14:33] LABS: Troponin I 0.189 ng/mL (0.0-0.045)
--- NOTE | 2024-10-18 14:39 | PC.NURSE ---
CODE CHAITANYA CALLED AT 1420 DUE TO PATIENT UNRESPONSIVENESS AND NO PULSE ON MONITOR. 1MG ATROPINE SULFATE AND 1GM CALCIUM CHLORIDE GIVEN AT 1624
--- NOTE | 2024-10-18 14:40 | PC.CC ---
ASW, Sarika responded to code blue at bedside is patient's Higinio who reports patient is full code. Patient responded to medical aid and patient's is at bedside with patient.
[2024-10-18] MEDS: INSULIN HUM REGULAR 1 UNIT/0.01 ML (PER UNIT) 5 UNIT IV (14:43)
[2024-10-18] MEDS: Sodium Bicarb Inj 8.4% SYR 50 ML SYRINGE IV (14:44)
[2024-10-18] MEDS: SOD POLYSTYRENE SULFON SUSP 15 GM/60 ML BTL 30 GM PR (14:45)
[2024-10-18] MEDS: CALCIUM CHLORIDE 10% INJ 10 ML SYRG IV (14:46)
--- NOTE | 2024-10-18 14:48 | PC.NURSE ---
2nd 1mg Atropine Sulfate given IV at 1425.
[2024-10-18] MEDS: MORPHINE SULF INJ 10 MG/ML VIAL 4 MG IVP (15:06)
--- NOTE | 2024-10-18 15:21 | PD.RESCONSUL ---
HPI Data of Consult Consult date: 10/18/24 Primary Care Provider: Jim Driscoll PA-C Consult Narrative Reason for consult: Symptomatic hyperkalemia, ESRD History of present illness: A 59-year-old male with past medical history of hypertension, hyperlipidemia, type 2 diabetes mellitus, ESRD on HD [/Tue] is referred to the hospital by the dialysis center in view of low blood pressures and low heart rate. Patient was apparently normal till yesterday. Patient took all his medications as prescribed on the day before of admission. On the day of admission, in the morning patient noted low blood pressures when he checked at home, later he went to dialysis center for HD as per his routine schedule. In the dialysis center, patient was found to have heart rate of around 40 following which patient was immediately referred to the hospital. Patient denies chest discomfort, palpitations, syncopal like episodes, skipping of heartbeats, lower extremity edema. Patient reported that he is on dialysis since March 2024, likely due to her uncontrolled hypertension and diabetes. But also stated that he is able to produce some amount of urine. On the day of admission, patient only took baby aspirin. Last hemodialysis is on Tuesday before the day of admission ED course: -Initial vitals are blood pressure 102/61 mmHg, pulse rate 38/minute, respiratory rate 16/min, temperature 95.1 ?F, SpO2 98% with room air -Later patient suddenly went into asystole and became hemodynamically unstable for which patient was given 2 dose of atropine, placed on temporary pacing following which patient regained consciousness -Later labs showed sodium 133, potassium 7.4, chloride 97, BUN 41, creatinine 5.7, glucose 468, lactate 2.3, AST 71, ALT 102, ALP 211, troponin 0.189. EKG showed sinus bradycardia -Chest x-ray showed mild vascular congestion bilaterally -Patient received hyperkalemia protocol Nephrology was consulted for emergent hemodialysis cc:: cc: Review of Systems Review of Systems Narrative Review of Systems: Constitutional: No Weight Change, No Fever, No Chills, No Night Sweats, No Fatigue, No Malaise ENT/Mouth: No Hearing Changes, No Ear Pain, No Nasal Congestion, No Sinus Pain, No Hoarseness, No sore throat, No Rhinorrhea, No Swallowing Difficulty Eyes: No Eye Pain, No Swelling, No Redness, No Foreign Body, No Discharge, No Vision Changes Cardiovascular: No Chest Pain, No SOB, No PND, No Dyspnea on Exertion, No Orthopnea, No Edema, No Palpitations Respiratory: No Cough, No Sputum, No Wheezing, No Dyspnea Gastrointestinal: No Nausea, No Vomiting, No Diarrhea, No Constipation, No Pain, No Heartburn, No Anorexia, No Dysphagia, No Hematochezia, No Melena, No Flatulence, No Jaundice Genitourinary: No Dysuria, No Urinary Frequency, No Hematuria, No Urinary Incontinence, No Urgency, No Flank Pain, No Urinary Flow Changes, No Hesitancy Musculoskeletal: No Arthralgias, No Myalgias, No Joint Swelling, No Joint Stiffness, No Back Pain, No Neck Pain, No Injury History Skin: No Skin Lesions, No Pruritis Neuro: No Weakness, No Numbness, No Paresthesias, Loss of Consciousness, No Syncope, Dizziness, No Headache, No Coordination Changes, No Recent Falls Past Medical History Past Medical History CARDIAC: Positive Cardiac Disorders, Hypercholesterolemia, Congestive Heart Failure and Hypertension GENITOURINARY: Positive Genitourinary Disorders, Renal Disease and Dialysis (//Tue) ENDOCRINE: Positive Endocrine Disorders and Diabetes Mellitus Type 2 HEMATOLOGIC: Positive Blood Disorders and Anemia PSYCHO/SOCIAL: Positive Depression OTHER HISTORY: Positive Hospitalization and Autoimmune Disease Family History FAMILY HISTORY: Positive Family Cardiac Disorders Social History SMOKING STATUS: Never smoker SUBSTANCE USE: does not use Exam Vital Signs Temp Pulse Resp BP Pulse Ox O2 Del Method 95.2 F L 85 21 H 125/68 96 Room Air 10/18/24 13:59 10/18/24 14:50 10/18/24 14:50 10/18/24 14:50 10/18/24 14:50 10/18/24 14:50 Narrative Exam General: Awake. HEENT: Normocephalic, atraumatic, mucous membranes moist. Heart: Regular rate and rhythm, no murmurs. Lungs: Clear to auscultation with no wheezing or crackles. TDC on right chest, appears sterile Abdomen: Soft, nondistended, nontender, positive bowel sounds. ?No guarding or rebound tenderness. Neurologic: Alert and oriented x3, no gross neurological deficit, and patient able to move all 4 extremities. Extremities: No edema. Skin: No rash or ecchymoses. Results Labs 10/20/24 04:45 10/20/24 04:45 Labs: Short CBC 10/18/24 Range/Units 12:54 WBC 10.6 (3.8-10.6) Thou/mm3 Hgb 11.9 L (13.5-16.0) g/dL Hct 36.4 L (41.0-53.0) % Plt Count 176 D (140-440) Thou/mm3 BMP 10/18/24 10/18/24 12:54 12:55 Sodium 133 L Cancelled Potassium 7.4 H* Cancelled Chloride 97 L Cancelled Carbon Dioxide 22.9 Cancelled BUN 41 H Cancelled Creatinine 5.7 H* Cancelled Glucose 416 H* Cancelled Calcium 8.7 Cancelled Cardiac Enzymes 10/18/24 10/18/24 Range/Units 12:54 12:55 Troponin I 0.189 H* Cancelled (0.0-0.045) ng/mL Liver Function 10/18/24 10/18/24 Range/Units 12:54 12:55 Total Bilirubin 0.2 L Cancelled (0.3-1.2) mg/dL AST 71 H Cancelled (0-34) U/L ALT 102 H Cancelled (10-49) U/L Alkaline Phosphatase 211 H Cancelled (46-116) U/L Albumin 3.9 Cancelled (3.5-5.0) gm/dL Quality Measures Quality Measures none Medications Home Medications and Allergies Home Medications ?Medication ?Instructions ?Recorded ?Confirmed ?Type aspirin 81 mg tablet,delayed 81 mg PO DAILY 01/30/23 10/18/24 History release albuterol sulfate 90 mcg/actuation 1 puff inhalation Q4H PRN 01/09/24 10/18/24 History aerosol inhaler Shortness Of Breath Or Wheezing sitagliptin phosphate 25 mg tablet 25 mg PO QDAY 01/09/24 10/18/24 History (Januvia) clonidine HCl 0.2 mg tablet 0.2 mg PO BID 04/17/24 10/18/24 History Held on 10/20/24. Instructions: Resume on 11/03/24. If your blood pressure remains stable, 160 or less, you can hold clonidine until advised to resume by your primary care or income tax investigator vitamin B complex-vitamin C-folic 1 tab PO QDAY 04/17/24 10/18/24 History acid 0.8 mg tablet (Alvina-Ming) atorvastatin 80 mg tablet 80 mg PO QDAY 07/04/24 10/18/24 History azilsartan medoxomil 80 mg tablet 80 mg PO QAM 10/05/24 10/05/24 History (Edarbi) ferrous sulfate 325 mg (65 mg 325 mg PO Q OTHER DAY 10/05/24 10/18/24 History iron) tablet nifedipine 90 mg tablet,extended 90 mg PO BID 10/05/24 10/18/24 History release Allergies Allergy/AdvReac Type Severity Reaction Status Date / Time No Known Allergies Allergy Verified 10/18/24 11:49 Visit Medications Dextrose (Dextrose 50%-Water Inj 50 Ml Syringe) 25 ml IV Q15MIN PRN PRN Reason: BG 50-70 responsive npo pt Stop: 11/17/24 14:31 Dextrose (Dextrose 50%-Water Inj 50 Ml Syringe) 50 ml IV Q15MIN PRN PRN Reason: BG <50 OR BG <70 & pt unresponsive Stop: 11/17/24 14:31 Glucagon (Glucagon Inj 1 Mg Vial) 1 mg IM Q15MIN PRN PRN Reason: BG <70, and no IV access Dextrose (D10w 1000 Ml) 1,000 mls @ 100 mls/hr IV .Q10H TAMIA Stop: 10/19/24 00:44 Discontinued Medications Albuterol (Albuterol Rt 2.5 Mg/3 Ml Nebu) 5 mg INH X1 ONE Stop: 10/18/24 14:34 Albuterol (Albuterol Rt 2.5 Mg/3 Ml Nebu) 5 mg INH X1 ONE Stop: 10/18/24 15:15 Calcium Chloride (Calcium Chloride 10% Inj 10 Ml Syrg) 10 ml IV X1 ONE Stop: 10/18/24 14:33 Last Admin: 10/18/24 14:46 Dose: 10 ml Calcium Gluconate (Calcium Gluconate 10% Inj 1 Gm/10 Ml Vial) 1 gm IV X1 ONE Stop: 10/18/24 14:21 Insulin Human Regular (Insulin Hum Regular 1 Unit/0.01 Ml (Per Unit)) 5 unit IV X1 ONE Stop: 10/18/24 14:33 Last Admin: 10/18/24 14:43 Dose: 5 unit Levetiracetam (Levetiracetam Inj 100 Mg/Ml Vial 5ml) 1,000 mg IVP X1 ONE Stop: 10/18/24 14:27 Last Admin: 10/18/24 14:30 Dose: 1,000 mg Morphine Sulfate (Morphine Sulf Inj 10 Mg/Ml Vial) 4 mg IVP X1 ONE Stop: 10/18/24 14:36 Last Admin: 10/18/24 15:06 Dose: 4 mg Ondansetron HCl (Ondansetron Inj 2 Mg/Ml Inj 2 Ml) 4 mg IV X1 ONE; Protocol Stop: 10/18/24 14:27 Last Admin: 10/18/24 14:31 Dose: 4 mg Sodium Bicarbonate (Sodium Bicarb Inj 8.4% Syr 50 Ml Syringe) 50 ml IV X1 ONE Stop: 10/18/24 14:33 Last Admin: 10/18/24 14:44 Dose: 50 ml Sodium Polystyrene Sulfonate (Sod Polystyrene Sulfon Susp 15 Gm/60 Ml Btl) 30 gm TN X1 ONE Stop: 10/18/24 14:33 Last Admin: 10/18/24 14:45 Dose: 30 gm Assessment & Plan Plan A 59-year-old male with past medical history of hypertension, hyperlipidemia, type 2 diabetes mellitus, ESRD on HD [T//Tue] is referred to the hospital by the dialysis center in view of low blood pressures and low heart rate. # ESRD on HD [//TUE], since 2023 Likely due to uncontrolled hypertension and diabetes mellitus -Patient is started on HD since March 2024 and compliant with his dialysis sessions, last session is on 10/16/2024 -Presented to the hospital with low heart rate noted in the dialysis unit -In the ED, patient was found to have a heart rate of 38 bpm and patient was externally paced -Labs done at the time of admission showed potassium of 7.4, BUN 41, creatinine 5.7, bicarb 22.9, anion gap 13 -Chest x-ray showed mild bilateral vascular congestion Plan -Will start on emergent hemodialysis -Recommended to monitor renal functions with electrolytes -Avoid nephrotoxic medications and renally dose medications # Hyperkalemia Likely due to ESRD -Potassium at the time of presentation is 7.4 -Patient came to the hospital with low heart rate and later went into asystole in the hospital for which patient was given 2 doses of atropine and started on external pacing -Patient received hyperkalemic protocol including calcium, Velt[place], insulin -Repeat potassium after 3 hours is 6.5 Plan -Will start emergent hemodialysis -Recommend to monitor electrolytes and correct accordingly # Mild hyponatremia Pseudohyponatremia -Sodium at the time of admission is 133, osmolality is 295 -Glucose is 416 -Corrected sodium will be within normal limits -Repeat sodium is 136 after 3 hours -Recommended to monitor electrolytes and replete accordingly # Uncontrolled diabetes mellitus -HbA1c at the time of admission is 8.5 -Patient is using Januvia at home -Recommended insulin sliding scale and strict control of blood sugars # Anemia, normocytic normochromic Likely anemia of chronic kidney disease -Hemoglobin at the time of admission is 11.9 Plan -Will give erythropoietin injections during hemodialysis # History of hypertension -Patient is using nifedipine, metoprolol, hydralazine, clonidine at home -Blood pressures at the time of admission is within normal limits -Recommended to continue to monitor blood pressures and resume medications as needed # Symptomatic bradycardia s/p external pacing # Hyperlipidemia -Rest of the medical conditions to be treated as per primary team Patient plan of care was discussed with the attending physician, Dr. Akash Harden, PGY1 Attending Provider Attestation/Addendum Patient seen and examined with resident physician Dr. Hopson. Note reviewed, agree with findings and recommendations. Patient admitted with symptomatic hyperkalemia/ Asystole and was resuscitated with atropine. Renal consultation requested for need for emergency dialysis as potassium was 7.4. Insert my dialysis note patient currently seen on dialysis. Tolerating dialysis without any problems. Hemodialysis for 3 hours, 2K, ultrafiltration 2-3 L, Epogen 6000, no heparin ordered. Plan of care discussed with the dialysis nurse. Please see dialysis flowsheet for further details. Thank you Dr. Newell for allowing me to participate in the care of Mr. Joaquin
--- NOTE | 2024-10-18 15:52 | ESHP_ITS ---
<Statement entered by Connie Newell MD - 10/19/24 07:59> I reviewed the resident?s note and agree with findings and plan as documented in the resident?s note. Upon my evaluation, this patient had a high probability of imminent or life- threatening deterioration due to cardiac arrest which required my direct attention, intervention, and personal management. This time is exclusive of time spent on procedures, which are documented separately if performed. esrd w/ hyperkalemia resulting in bradycardic cardiac arrest ca+gluconate/insulin/albuterol ordered atropine prn external pacing dopamine if needed plans made for emergent HD - no evid of high degree AVB Documentation for date of: 10/18/24 HPI History of Present Illness History of present illness: Patient is a 59-year-old male with past medical history of uncontrolled hypertension, hyperlipidemia, DM type II, ESRD followed by Dr. Gonsales, getting hemodialysis on Tuesday//Tuesday, sent by dialysis center for bradycardia today. Per signout patient was at the dialysis clinic for his scheduled dialysis, however at the centers they noted that patient was severely bradycardic with a heart rate of low 30s and called EMS to bring him here. While in ED patient became hemodynamically unstable, blood pressure was at the low side, heart rate was low 30s, patient at 1 point started to seize. Patient received 2 doses of atropine, percutaneous pacer was placed, after which patient regained consciousness. After regaining consciousness, patient denied any fever, chills, sweats, chest pain, shortness of breath or any other associated symptoms. Patient stated that he had a hemodialysis on Tuesday and completed the full 3.5-hour hemodialysis. In the morning he took his hydralazine, clonidine, and blood pressure was in the normal side before he arrived for hemodialysis. was at bedside, and stated that overall he was doing fine, did not have any recent sick contact, any other complaints. Further labs revealed severe hyperkalemia potassium of 7.4, hyponatremia of 133, chloride 97, BUN 41, creatinine 5.7, EGFR of 11, glucose 468, lactic acid 2.3, AST 71, ALT 102, ALP 211, troponin 0.189, BUN of 979. EKG revealed sinus bradycardia without high-grade block. Chest x-ray revealed mild vascular congestion. Patient in ED received hyperkalemia protocol, nephrology was consulted in ED, patient will be admitted to ICU and will have emergent hemodialysis Past medical history: Hypertension, hyperlipidemia, ESRD on HD, osteomyelitis of right toe, type 2 diabetes mellitus Past surgical history: Not significant Social history: Denies smoking, alcohol, other illicit drug abuse. Review of Systems Review of Systems Narrative Review of Systems: Narrative Review of Systems: GENERAL: Denies fevers/chills or diaphoresis. HEENT: Denies headache, Denies visual/hearing changes NEURO: Denies unusual weakness or difficulty speaking. CARDIO: Denies chest pain PULM: Denies SOB GI: Denies abdominal pain, nausea, vomiting, diarrhea, or constipation MSK/EXT/SKIN: Denies joint/skeletal/muscle pain The rest of review of system is otherwise negative except what is mentioned above Exam Vital Signs Temp Pulse Resp BP Pulse Ox O2 Del Method 95.2 F L 93 22 H 133/72 H 97 Room Air 10/18/24 13:59 10/18/24 15:33 10/18/24 15:33 10/18/24 15:33 10/18/24 15:33 10/18/24 15:33 Narrative Exam General: Alert and oriented x3 HEENT: Normocephalic atramatic.PERRL, EOMI,moist mucus membranes, oropharynx is clear, no adenopathy, no JVD,carotic puls 2+bilaterally w/o bruit. CVS: S1 and S2 present, Regular rate and rhythm, No murmurs, rubs or gallops perceived during auscultation. Vas-Cath noted on the right chest Lungs: Clear to auscultation without wheezing or crackles, non tender on palpation , no deformation, no crepitus Abdomen: Soft.Nontender, nondistended. Positive bowel sounds, no guarding or tenderness Neuro: CN II-XII intact. Patient able to move all four extremities, no numbness, no weakness, no sensation loss. Skin:Intact, no rashes, no lesions, no erythema or jaundice noted Results: Labs 10/18/24 12:54 10/18/24 16:10 Labs: Short CBC 10/18/24 Range/Units 12:54 WBC 10.6 (3.8-10.6) Thou/mm3 Hgb 11.9 L (13.5-16.0) g/dL Hct 36.4 L (41.0-53.0) % Plt Count 176 D (140-440) Thou/mm3 BMP 10/18/24 10/18/24 12:54 12:55 Sodium 133 L Cancelled Potassium 7.4 H* Cancelled Chloride 97 L Cancelled Carbon Dioxide 22.9 Cancelled BUN 41 H Cancelled Creatinine 5.7 H* Cancelled Glucose 416 H* Cancelled Calcium 8.7 Cancelled Cardiac Enzymes 10/18/24 10/18/24 Range/Units 12:54 12:55 Troponin I 0.189 H* Cancelled (0.0-0.045) ng/mL Liver Function 10/18/24 10/18/24 Range/Units 12:54 12:55 Total Bilirubin 0.2 L Cancelled (0.3-1.2) mg/dL AST 71 H Cancelled (0-34) U/L ALT 102 H Cancelled (10-49) U/L Alkaline Phosphatase 211 H Cancelled (46-116) U/L Albumin 3.9 Cancelled (3.5-5.0) gm/dL Quality Measures Quality Measures none Medications Home Medications and Allergies Home Medications ?Medication ?Instructions ?Recorded ?Confirmed ?Type aspirin 81 mg tablet,delayed 81 mg PO DAILY 01/30/23 0 10/18/24 History release albuterol sulfate 90 mcg/actuation 1 puff inhalation Q 4H PRN 01/09/24 10/18/24 History aerosol inhaler Shortness Of Breath Or Wheez ing sitagliptin phosphate 25 mg tablet 25 mg PO QDAY 01/0810/18/24 History (Januvia) clonidine HCl 0.2 mg tablet 0.2 mg PO BID 04/17/24 History metoprolol succinate 100 mg 100 mg PO QDAY 04/17/24 History tablet,extended release 24 hr vitamin B complex-vitamin C-folic 1 tab PO QDAY 10/18/24 History acid 0.8 mg tablet (Alvina-Ming) atorvastatin 80 mg tablet 80 mg PO QDAY 07/04/2410/18 History azilsartan medoxomil 80 mg tablet 80 mg PO QAM 5 10/05/24 History (Edarbi) ferrous sulfate 325 mg (65 mg 325 mg PO Q OTHER DAY 10/18/24 History iron) tablet nifedipine 90 mg tablet,extended 90 mg PO BID 10/05/24 10/18/24 History release Allergies Allergy/AdvReac Type Severity Reaction Status Date / Time No Known Allergies Allergy Verified 10/18/24 11:49 Visit Medications Acetaminophen (Acetaminophen 325 Mg Tablet) 650 mg PO Q6H PRN PRN Reason: Fever >101.5 Stop: 11/17/24 15:29 Atropine Sulfate (Atropine Sulf Inj 0.1 Mg/Ml Syr 10 Ml) 0.5 mg IVP Q3M PRN PRN Reason: bradicardia Dextrose (Dextrose 50%-Water Inj 50 Ml Syringe) 25 ml IV Q15MIN PRN PRN Reason: BG 50-70 responsive npo pt Stop: 11/17/24 14:31 Dextrose (Dextrose 50%-Water Inj 50 Ml Syringe) 50 ml IV Q15MIN PRN PRN Reason: BG <50 OR BG <70 & pt unresponsive Stop: 11/17/24 14:31 Glucagon (Glucagon Inj 1 Mg Vial) 1 mg IM Q15MIN PRN PRN Reason: BG <70, and no IV access Heparin Sodium (Porcine) (Heparin Sod Inj 5000 Unit/Ml Vial) 5,000 unit SC Q8HR TAMIA Stop: 11/01/24 21:59 Dextrose (D10w 1000 Ml) 1,000 mls @ 100 mls/hr IV .Q10H TAMIA Ondansetron HCl (Ondansetron Inj 2 Mg/Ml Inj 2 Ml) 4 mg IV Q6H PRN; Protocol PRN Reason: NAUSEA OR VOMITING Stop: 11/17/24 15:29 Pantoprazole Sodium (Pantoprazole Inj 40 Mg Vial) 40 mg IVP QDAY TAMIA Stop: 11/18/24 08:59 Discontinued Medications Albuterol (Albuterol Rt 2.5 Mg/3 Ml Nebu) 5 mg INH X1 ONE Stop: 10/18/24 14:34 Albuterol (Albuterol Rt 2.5 Mg/3 Ml Nebu) 5 mg INH X1 ONE Stop: 10/18/24 15:15 Calcium Chloride (Calcium Chloride 10% Inj 10 Ml Syrg) 10 ml IV X1 ONE Stop: 10/18/24 14:33 Last Admin: 10/18/24 14:46 Dose: 10 ml Calcium Gluconate (Calcium Gluconate 10% Inj 1 Gm/10 Ml Vial) 1 gm IV X1 ONE Stop: 10/18/24 14:21 Insulin Human Regular (Insulin Hum Regular 1 Unit/0.01 Ml (Per Unit)) 5 unit IV X1 ONE Stop: 10/18/24 14:33 Last Admin: 10/18/24 14:43 Dose: 5 unit Levetiracetam (Levetiracetam Inj 100 Mg/Ml Vial 5ml) 1,000 mg IVP X1 ONE Stop: 10/18/24 14:27 Last Admin: 10/18/24 14:30 Dose: 1,000 mg Morphine Sulfate (Morphine Sulf Inj 10 Mg/Ml Vial) 4 mg IVP X1 ONE Stop: 10/18/24 14:36 Last Admin: 10/18/24 15:06 Dose: 4 mg Ondansetron HCl (Ondansetron Inj 2 Mg/Ml Inj 2 Ml) 4 mg IV X1 ONE; Protocol Stop: 10/18/24 14:27 Last Admin: 10/18/24 14:31 Dose: 4 mg Sodium Bicarbonate (Sodium Bicarb Inj 8.4% Syr 50 Ml Syringe) 50 ml IV X1 ONE Stop: 10/18/24 14:33 Last Admin: 10/18/24 14:44 Dose: 50 ml Sodium Polystyrene Sulfonate (Sod Polystyrene Sulfon Susp 15 Gm/60 Ml Btl) 30 gm DC X1 ONE Stop: 10/18/24 14:33 Last Admin: 10/18/24 14:45 Dose: 30 gm Assessment & Plan Plan 79-year-old male with past medical history of uncontrolled hypertension, hyperlipidemia, DM type II, ESRD followed by Dr. Bustos receiving hemodialysis on Tuesday//Tuesday was admitted for symptomatic bradycardia secondary due to hyperkalemia.. Patient will be admitted to ICU for urgent hemodialysis as well as for symptomatic bradycardia treatment and management. [employer] Acute encephalopathy resolved secondary to symptomatic bradycardia Episode of seizures Patient had ED head episode of seizure, unresponsive, CODE BLUE was called, after receiving 2 dose of atropine as well as percutaneous pacing patient regained consciousness, and seizure stopped. Patient also received 1 dose of Keppra loading dose. ? Continue close monitor mental status ? Treat underlying condition CVS Symptomatic bradycardia On arrival patient heart rate was low 30s, patient received 2 dose of atropine, percutaneous pacer was placed. EKG did not reveal high-grade blockage ? Currently heart rate is well-controlled ? Continue percutaneous pacer ? Atropine as needed ? Patient may need dopamine 5 Mg if heart rate does not maintain. ?Follow-up with echo Uncontrolled hypertension Secondary due to ESRD, Patient is not on any antihypertensive medications including hydralazine, clonidine, metoprolol, and nifedipine, all at high doses Currently blood pressure is under control Last echo was done on 04/17/2024 which revealed left ventricular hypertension, estimated EF of 65 to 70%, moderate pericardial effusion mostly located to the posterolateral aspect with no evidence of cardiac tamponade. Mild mitral regurgitation, moderate tricuspid regurgitation left pleural effusion ? Patient will have hemodialysis today, ? Reconcile home medication once med rec is completed ?Hydralazine as needed for SBP more than 170, DBP more than 110, Hyperlipidemia Will restart home atorvastatin GI Stable PPI prophylaxis Renal ESRD on hemodialysis Tuesday //Tuesday Hyperkalemia 7.4 Patient was supposed to have a hemodialysis session today, however did not completed Presented with symptomatic bradycardia hence patient will have a emergent hemodialysis done in ICU Received hyperkalemia protocol, repeat potassium was 6.5 -Urgent hemodialysis -Nephrology was consulted, will follow-up with recommendation Endocrinology History of diabetes Insulin sliding scale Will follow-up with A1c Hematology Anemia of chronic disease No signs of symptoms of acute bleeding Continue to monitor ID Stable Cultures are pending Disposition: ICU DVT prophylaxis: Heparin GI prophylaxis: PPI Diet: N.p.o. Lines: PIV CODE STATUS:Full code Patient care was discussed with attending physician Dr. Osiris Ordoñez MD PGY-2
[2024-10-18 16:01] LABS: Reflex Lactate? Y
[2024-10-18 16:20] LABS: Lactic Acid, 3 HR 2.6 mMol/L (0.4-2.0)
[2024-10-18] MEDS: ALBUTEROL RT 2.5 MG/3 ML NEBU 5 MG INH (16:33)
[2024-10-18 16:42] LABS: Alanine Aminotransferase 95 U/L (10-49); Albumin, Serum 3.7 gm/dL (3.5-5.0); Albumin/Globulin Ratio 1.4 (1.2-2.2); Alkaline Phosphatase 190 U/L (46-116); Anion Gap 12 (7-16); Aspartate Amino Transferase 60 U/L (0-34); BUN/Creatinine Ratio 7 Ratio (12-20); Bilirubin,Total 0.3 mg/dL (0.3-1.2); Blood Urea Nitrogen 41 mg/dL (9-23); Calcium (Corrected) 10.2 mg/dL (8.5-10.1); Carbon Dioxide 24.3 mMol/L (20.0-31.0); Chloride 100 mMol/L (98-107); Creatinine (Component) 5.8 mg/dL (0.6-1.3); Estimated Creatinine Clearance 12.6 mL/min (>60); Globulin 2.7 gm/dL (2.3-3.5); Glucose 331 mg/dL (74-106); Osmolality,Calculated 295 (275-295); Sodium 136 mMol/L (136-145); Total Protein 6.4 gm/dL (5.7-8.2); eGFR 11 See Note
[2024-10-18 16:45] LABS: Potassium 6.5 mMol/L (3.4-5.1); Troponin I 0.164 ng/mL (0.0-0.045)
[2024-10-18] MEDS: INSULIN LISPRO (AdmeLOG) 1 UNIT/0.01 ML UNIT SC (18:43)
[2024-10-18 18:48] LABS: Glucose Estimated Average 197 mg/dL (80-131); Hemoglobin A1C 8.5 % Hgb (4.8-6.0)
--- NOTE | 2024-10-18 19:42 | PC.NURSE ---
PT HR IRREGULAR MOVING FROM 85-140 BPM, UF GOAL LOWERED TO 1.5L TOLERATED. BEDSIDE NURSE DAVID NOTIFIED AND REPORT WILL NOTIFY
[2024-10-18] MEDS: ACETAMINOPHEN 325 MG TABLET 650 MG PO (19:57)
[2024-10-18] MEDS: hydrALAZINE INJ 20 MG/ML VIAL 10 MG IV (19:59)
--- NOTE | 2024-10-18 20:01 | PC.NURSE ---
Addendum entered by Antonina Caldera RN 10/18/24 20:03: BP MEDS ADMINISTERED Original Note: BP ELEVATED AND TRENDING UP, BEDSIDE NURSE NOTIFIED AND REPORTS WILL NOTIFY ICU MD FOR BP MED ORDERS, WILL CONT. TO MONITOR
--- NOTE | 2024-10-18 21:36 | EKG_ITS ---
[facility] Test Date: 2024-10-18 Pat Name: PAIGE GANDHI [facility] Male [employer]il [employer] Teacher: TETOMadelaine : 1965 Requested By: Federico Tolbert Order Number: [id number] Reading MD: Federico Tolbert Measurements Intervals [place] Rate: 72 P: 19 [place]: 132 QRS: 72 QRSD: 96 T: -30 QT: 412 QTc: 453 Interpretive Statements SINUS RHYTHM POSSIBLE LEFT ATRIAL ENLARGEMENT NONSPECIFIC T-WAVE ABNORMALITY Compared to ECG 10/18/2024 12:10:27 T-wave abnormality now present Sinus bradycardia no longer present /store/S0/[id number].pdf
[2024-10-18] MEDS: HEPARIN SOD INJ 1000 UNIT/ML VIAL 10 ML 3500 UNIT INDWELLCAT (21:50)
[2024-10-18] MEDS: HEPARIN SOD INJ 5000 UNIT/ML VIAL SC (21:52)
[2024-10-18 23:44] LABS: Anion Gap 11 (7-16); BUN/Creatinine Ratio 6 Ratio (12-20); Blood Urea Nitrogen 16 mg/dL (9-23); Calcium 9.9 mg/dL (8.3-10.6); Calcium (Corrected) 9.9 mg/dL (8.5-10.1); Carbon Dioxide 29.2 mMol/L (20.0-31.0); Chloride 101 mMol/L (98-107); Creatinine (Component) 2.8 mg/dL (0.6-1.3); Estimated Creatinine Clearance 23.1 mL/min (>60); Glucose 81 mg/dL (74-106); Magnesium 1.8 mg/dL (1.6-2.6); Osmolality,Calculated 281 (275-295); Phosphorous 3.8 mg/dL (2.4-5.1); Potassium 3.9 mMol/L (3.4-5.1); Sodium 141 mMol/L (136-145); eGFR 25 See Note
[2024-10-19] VITALS (60 sets, daily range): BP systolic 154–217; BP diastolic 77–102; PULSE 74–87; RESP 0–98; TEMP 36.2–37.5; O2SAT 95–99; BMI 24.8
[2024-10-19] MEDS: hydrALAZINE INJ 20 MG/ML VIAL 10 MG IV ×4 (02:05→19:02)
[2024-10-19] MEDS: HEPARIN SOD INJ 5000 UNIT/ML VIAL SC ×3 (05:21→21:18)
[2024-10-19 05:59] LABS: Basophils % (Auto) 0 % (0-2.5); Eosinophils # (Auto) 0.1 Thou/mm3 (0.0-0.5); Eosinophils % (Auto) 1 % (0-10); Hemoglobin 11.1 g/dL (13.5-16.0); Immature Granulocytes % (Auto) 0 % (0-0); Immature Granulocytes Auto 0.03 Thou/mm3 (0.00-0.00); Lymphocytes # (Auto) 1.1 Thou/mm3 (1.0-4.8); Lymphocytes % (Auto) 9 % (10-50); Mean Corpuscular HGB Conc 33.6 g/dl (31.0-37.0); Mean Corpuscular Hemoglobin 28.4 pg (25.0-35.0); Mean Corpuscular Volume 84 fL (80-100); Monocytes # (Auto) 0.4 Thou/mm3 (0.0-0.8); Monocytes % (Auto) 4 % (0-12); Neutrophils # (Auto) 9.8 Thou/mm3 (1.8-7.7); Neutrophils % (Auto) 86 % (37-80); Nucleated Red Blood Cell % 0 /100 WBC (0); Platelet Count 195 Thou/mm3 (140-440); RDW Standard Deviation 46.7 fL (35.1-43.9); Red Blood Count 3.91 Miln/mm3 (4.50-5.90); White Blood Count 11.4 Thou/mm3 (3.8-10.6)
[2024-10-19 06:13] LABS: INR 1.1 (0.9-1.3); Partial Thromboplastin Time 27.3 Seconds (22.0-36.0); Prothrombin Time 11.9 Seconds (9.0-12.2)
[2024-10-19 06:35] LABS: Alanine Aminotransferase 78 U/L (10-49); Albumin, Serum 3.5 gm/dL (3.5-5.0); Albumin/Globulin Ratio 1.3 (1.2-2.2); Alkaline Phosphatase 166 U/L (46-116); Anion Gap 12 (7-16); Aspartate Amino Transferase 42 U/L (0-34); BUN/Creatinine Ratio 5 Ratio (12-20); Bilirubin,Total 0.3 mg/dL (0.3-1.2); Blood Urea Nitrogen 18 mg/dL (9-23); Calcium 8.9 mg/dL (8.3-10.6); Calcium (Corrected) 9.3 mg/dL (8.5-10.1); Carbon Dioxide 26.1 mMol/L (20.0-31.0); Cardiac Risk Estimate 2.4 RATIO (4.0-6.7); Chloride 100 mMol/L (98-107); Cholesterol 106 mg/dL (132-200); Creatinine (Component) 3.5 mg/dL (0.6-1.3); Estimated Creatinine Clearance 18.5 mL/min (>60); Globulin 2.7 gm/dL (2.3-3.5); Glucose 95 mg/dL (74-106); HDL Cholesterol 45 mg/dL (40-60); LDL Cholesterol,Calculated 40 mg/dL (0-130); Magnesium 1.6 mg/dL (1.6-2.6); Osmolality,Calculated 277 (275-295); Phosphorous 5.1 mg/dL (2.4-5.1); Potassium 4.5 mMol/L (3.4-5.1); Sodium 138 mMol/L (136-145); Total Protein 6.2 gm/dL (5.7-8.2); Triglycerides 106 mg/dL (30-150); eGFR 19 See Note
[2024-10-19 06:48] LABS: Troponin I 0.161 ng/mL (0.0-0.045)
[2024-10-19] MEDS: ONDANSETRON INJ 2 MG/ML INJ 2 ML 4 MG IV (07:41)
[2024-10-19] MEDS: METOPROLOL SUCCINATE XL 25 MG TABCR 100 MG PO (08:42)
[2024-10-19] MEDS: hydrALAZINE HCL 25 MG TABLET 100 MG PO ×3 (08:42→22:53)
[2024-10-19] MEDS: ATORVASTATIN CALCIUM 20 MG TABLET 80 MG PO (08:43)
[2024-10-19] MEDS: PANTOPRAZOLE INJ 40 MG VIAL IVP (08:43)
--- NOTE | 2024-10-19 09:58 | ESPR_ITS ---
<Statement entered by Connie Newell MD - 10/20/24 10:23> TOTAL CC TIME: 45 MIN I saw and evaluated the patient. I reviewed the resident?s note and agree with findings and plan as documented in the resident?s note. Upon my evaluation, this patient had a high probability of imminent or life- threatening deterioration due to hyperkalemia induced bradycardia status post cardiac arrest which required my direct attention, intervention, and personal management. This time is exclusive of time spent on procedures, which are documented separately if performed. Hemodynamics improved post medical management of hyperkalemia and emergent hemodialysis. Can transfer out of ICU later today Documentation for date of: 10/19/24 Subjective Subjective Interval history: Patient was examined bedside this morning, no acute overnight event. He got emergency dialysis yesterday. Temporary pacemaker was turned off around 9 PM yesterday. His heart rate has been normal the whole night. He is stable to downgrade to telemetry Exam Vital Signs Temp Pulse Resp BP Pulse Ox O2 Del Method O2 Flow Rate 99.5 F 82 3 L 194/96 H 96 Room Air 6 10/19/24 04:00 10/19/24 08:42 10/19/24 07:15 10/19/24 08:42 10/19/24 07:15 10/18/24 17:30 10/18/24 20:36 Narrative Exam GENERAL: Comfortable adult seen resting comfortably in hospital bed, no acute distress HEENT: Normocephalic, atraumatic. Pupils are equal and reactive. Oral mucosa is moist. NECK: Supple, nontender, no JVD CHEST: Symmetrical, atraumatic and with equal expansion ,Nontender on palpation CARDIOVASCULAR: Heart regular rhythm & rate. S1/S2. no murmur or gallop rub or extra beats. LUNGS: Clear to auscultation bilaterally with symmetrical chest rise. No laboring tachypnea or wheezing. No intercostal subcostal retraction. No rales and no rhonchi. ABDOMEN: Soft, flat, nontender to palpation, no guarding or rebound tenderness. Active and normal bowel sounds. EXTREMITIES:Moves all 4 extremities,No B/L LE edema.Vas-Cath noted on the right chest SKIN: Warm and dry, no jaundice or rashes noted. NEURO: Patient is AO x 3, Cranial nerves II through XII grossly intact. There is no focal neurologic deficits noted. PSYCHIATRIC: Patient is in normal mood, cooperative, no SI or HI or hallucinations. Objective Labs 10/19/24 04:51 10/19/24 04:51 Labs: Laboratory Results - last 24 hr 10/18/24 10/18/24 10/18/24 12:15 12:54 12:55 WBC 10.6 RBC 4.22 L Hgb 11.9 L Hct 36.4 L MCV 86 MCH 28.2 MCHC 32.7 RDW Std Deviation 49.1 H Plt Count 176 D Neut % (Auto) 86 H Lymph % (Auto) 9 L [place] % (Auto) 4 Eos % (Auto) 1 Baso % (Auto) 0 Neut # (Auto) 9.1 H Lymph # (Auto) 1.0 [place] # (Auto) 0.4 Eos # (Auto) 0.1 Baso # (Auto) 0.0 Immature Gran # (Auto) 0.03 H Absolute Nucleated RBC 0.00 Immature Gran % 0 Nucleated RBC % 0 PT Cancelled INR Cancelled APTT Cancelled Sodium 133 L Cancelled Potassium 7.4 H* Cancelled Chloride 97 L Cancelled Carbon Dioxide 22.9 Cancelled Anion Gap 13 Cancelled BUN 41 H Cancelled Creatinine 5.7 H* Cancelled Estim Creat Clear Calc 12.8 L Cancelled eGFR 11 L* Cancelled BUN/Creatinine Ratio 7 L Cancelled Glucose 416 H* Cancelled Estimated Ave Glu mg/dL 197 H Hemoglobin A1c 8.5 H Calculated Osmolality 294 Cancelled Lactic Acid 2.3 H Calcium 8.7 Cancelled Corrected Calcium 8.8 Cancelled Phosphorus Magnesium 2.0 Cancelled Total Bilirubin 0.2 L Cancelled AST 71 H Cancelled ALT 102 H Cancelled Alkaline Phosphatase 211 H Cancelled Troponin I 0.189 H* Cancelled B-Natriuretic Peptide 979 H* Total Protein 6.6 Cancelled Albumin 3.9 Cancelled Globulin 2.7 Cancelled Albumin/Globulin Ratio 1.4 Cancelled Triglycerides Cholesterol LDL Cholesterol, Calc HDL Cholesterol Cholesterol/HDL Ratio Procalcitonin 0.22 10/18/24 10/18/24 10/18/24 16:10 22:27 23:27 WBC RBC Hgb Hct MCV MCH MCHC RDW Std Deviation Plt Count Neut % (Auto) Lymph % (Auto) [place] % (Auto) Eos % (Auto) Baso % (Auto) Neut # (Auto) Lymph # (Auto) [place] # (Auto) Eos # (Auto) Baso # (Auto) Immature Gran # (Auto) Absolute Nucleated RBC Immature Gran % Nucleated RBC % PT INR APTT Sodium 136 141 Potassium 6.5 H* D 3.9 D Chloride 100 101 Carbon Dioxide 24.3 29.2 Anion Gap 12 11 BUN 41 H 16 Creatinine 5.8 H* 2.8 H D Estim Creat Clear Calc 12.6 L 23.1 L eGFR 11 L* 25 L BUN/Creatinine Ratio 7 L 6 L Glucose 331 H D [address] Glu mg/dL Hemoglobin A1c Calculated Osmolality 295 281 Lactic Acid 2.6 H Calcium 10.0 9.9 Corrected Calcium 10.2 H 9.9 Phosphorus 3.8 Magnesium 1.8 Total Bilirubin 0.3 AST 60 H ALT 95 H Alkaline Phosphatase 190 H D Troponin I 0.164 H* 0.170 H* B-Natriuretic Peptide Total Protein 6.4 Albumin 3.7 4.0 Globulin 2.7 Albumin/Globulin Ratio 1.4 Triglycerides Cholesterol LDL Cholesterol, Calc HDL Cholesterol Cholesterol/HDL Ratio Procalcitonin 10/19/24 04:51 WBC 11.4 H RBC 3.91 L Hgb 11.1 L Hct 33.0 L MCV 84 MCH 28.4 MCHC 33.6 RDW Std Deviation 46.7 H Plt Count 195 Neut % (Auto) 86 H Lymph % (Auto) 9 L [place] % (Auto) 4 Eos % (Auto) 1 Baso % (Auto) 0 Neut # (Auto) 9.8 H Lymph # (Auto) 1.1 [place] # (Auto) 0.4 Eos # (Auto) 0.1 Baso # (Auto) 0.0 Immature Gran # (Auto) 0.03 H Absolute Nucleated RBC 0.00 Immature Gran % 0 Nucleated RBC % 0 PT 11.9 INR 1.1 APTT 27.3 Sodium 138 Potassium 4.5 D Chloride 100 Carbon Dioxide 26.1 Anion Gap 12 BUN 18 Creatinine 3.5 H D Estim Creat Clear Calc 18.5 L eGFR 19 L BUN/Creatinine Ratio 5 L Glucose [address] Glu mg/dL Hemoglobin A1c Calculated Osmolality 277 Lactic Acid Calcium 8.9 Corrected Calcium 9.3 Phosphorus 5.1 Magnesium 1.6 Total Bilirubin 0.3 AST 42 H ALT 78 H Alkaline Phosphatase 166 H D Troponin I 0.161 H* B-Natriuretic Peptide Total Protein 6.2 Albumin 3.5 D Globulin 2.7 Albumin/Globulin Ratio 1.3 Triglycerides 106 Cholesterol 106 L LDL Cholesterol, Calc 40 HDL Cholesterol 45 Cholesterol/HDL Ratio 2.4 L Procalcitonin Quality Measures Quality Measures none Assessment & Plan Assessment Current Active Medications: Generic Name Dose Route Start Last Admin Trade Name Freq PRN Reason Stop Dose Admin Acetaminophen 650 mg 10/18/24 15:30 10/18/24 19:57 Acetaminophen 325 Mg Tablet PO 11/17/24 15:29 650 mg Q6H PRN Administration Fever >101.5 Atorvastatin Calcium 80 mg 10/19/24 09:00 10/19/24 08:43 Atorvastatin Calcium 20 Mg Tablet PO 11/18/24 08:59 80 mg QDAY TAMIA Administration Atropine Sulfate 0.5 mg 10/18/24 15:35 Atropine Sulf Inj 0.1 Mg/Ml Syr 10 Ml IVP Q3M PRN bradicardia Dextrose 25 ml 10/18/24 14:32 Dextrose 50%-Water Inj 50 Ml Syringe IV 11/17/24 14:31 Q15MIN PRN BG 50-70 responsive npo pt Dextrose 50 ml 10/18/24 14:32 Dextrose 50%-Water Inj 50 Ml Syringe IV 11/17/24 14:31 Q15MIN PRN BG <50 OR BG <70 & pt unresponsive Glucagon 1 mg 10/18/24 18:23 Glucagon Inj 1 Mg Vial IM Q15MIN PRN BG <70, and no IV access Heparin Sodium (Porcine) 5,000 unit 10/18/24 22:00 10/19/24 05:21 Heparin Sod Inj 5000 Unit/Ml Vial SC 11/01/24 21:59 5,000 unit Q8HR TAMIA Administration Heparin Sodium (Porcine) 3,500 unit 10/18/24 21:13 10/18/24 21:50 Heparin Sod Inj 1000 Unit/Ml Vial 10 Ml INDWELLCAT 11/01/24 21:12 3,500 unit PRN PRN Administration DIALYSIS Hydralazine HCl 10 mg 10/19/24 06:24 10/19/24 06:29 Hydralazine Inj 20 Mg/Ml Vial IV 11/17/24 17:45 10 mg Q4HR PRN Administration hypertension Hydralazine HCl 100 mg 10/19/24 08:00 10/19/24 08:42 Hydralazine Hcl 25 Mg Tablet PO 11/18/24 07:59 100 mg TID@0800,1600,2300 TAMIA Administration Albumin Human 25 gm in 100 mls @ 100 mls/min 10/18/24 16:04 Albuminar-25 Ivpb IV PRN PRN DIALYSIS Dopamine HCl/Dextrose 400 mg in 250 mls @ 11.775 mls/hr 10/18/24 22:03 Intropin In D5w Ivpb IV 11/17/24 21:35 .[id number] PRN BRADYCARDIA Protocol 5 MCG/KG/MIN Insulin Human Lispro 0 unit 10/18/24 18:30 10/19/24 05:12 Insulin Lispro (Admelog) 1 Unit/0.01 Ml Unit SC 11/17/24 18:29 Not Given Q6HR TAMIA Protocol Metoprolol Succinate 100 mg 10/19/24 09:00 10/19/24 08:42 Metoprolol Succinate Xl 25 Mg Tabcr PO 11/18/24 08:59 100 mg QDAY TAMIA Administration Ondansetron HCl 4 mg 10/18/24 15:30 10/19/24 07:41 Ondansetron Inj 2 Mg/Ml Inj 2 Ml IV 11/17/24 15:29 4 mg Q6H PRN Administration NAUSEA OR VOMITING Protocol Pantoprazole Sodium 40 mg 10/19/24 09:00 10/19/24 08:43 Pantoprazole Inj 40 Mg Vial IVP 11/18/24 08:59 40 mg QDAY TAMIA Administration Plan 79-year-old male with past medical history of uncontrolled hypertension, hyperlipidemia, DM type II, ESRD followed by Dr. Bustos receiving hemodialysis on Tuesday//Tuesday was admitted for symptomatic bradycardia secondary due to hyperkalemia.. Patient will be admitted to ICU for urgent hemodialysis as well as for symptomatic bradycardia treatment and management. 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 -Resolved after receiving dilaysis CVS #Symptomatic bradycardia- resolved -On arrival patient heart rate was low 30s, patient received 2 dose of atropine, percutaneous pacer was placed. -EKG did not reveal high-grade blockage -Currently heart rate is well-controlled -Follow-up with echo -likely BRASH (Bradycardia,Renal failure,AV Block,shock and hyperkalemia ) #Uncontrolled hypertension -Secondary due to ESRD, -Patient is on any antihypertensive medications including hydralazine, clonidine, metoprolol, and nifedipine, all at high doses -Last echo was done on 04/17/2024 which revealed left ventricular hypertension, estimated EF of 65 to 70%, moderate pericardial effusion mostly located to the posterolateral aspect with no evidence of cardiac tamponade. Mild mitral regurgitation, moderate tricuspid regurgitation left pleural effusion -Patient will have hemodialysis yesterday -pending Echo -restarted home hydralazine and metoprolol(with holding paramerters) -Hydralazine as needed for SBP more than 170, DBP more than 110, #Hyperlipidemia -restarted home atorvastatin #elevated troponin -chronically elevated troponin , denied any chest pain RESPI Stable GI Stable PPI prophylaxis Renal #ESRD on hemodialysis Tuesday //Tuesday #Hyperkalemia -resolved -Patient was supposed to have a hemodialysis session yesterday, however did not completed -Presented with symptomatic bradycardia hence patient will have a emergent hemodialysis done in ICU -Received hyperkalemia protocol, repeat potassium was 6.5 -Urgent hemodialysis-yesterday -Nephrology was consulted, will follow-up with recommendation Endocrinology History of diabetes Insulin sliding scale A1c- 8.5 Hematology Anemia of chronic disease No signs of symptoms of acute bleeding Continue to monitor ID Stable Cultures are pending Disposition: ICU downgraded to telemetry DVT prophylaxis: Heparin GI prophylaxis: PPI Diet: Renal Lines: PIV CODE STATUS:Full code Patient care was discussed with attending physician Dr. Osiris May,PGY-3
--- NOTE | 2024-10-19 10:00 | ESPR_ITS ---
Documentation for date of: 10/19/24 Subjective Subjective Interval history: Patient was seen and examined in the ICU. On 10/18/2024 patient was admitted in ICU due to acute encephalopathy likely due to symptomatic bradycardia 32 bpm and critical hypokalemia 7.4. Patient was in dialysis unit yesterday where he became hypotensive dizzy and was brought to the ED. He was found bradycardic as low as 30 bpm was given atropine x 2 and seized once. EKG showed sinus bradycardia with peaked T waves. Pacers pads were placed. Urgent dialysis was performed for hyperkalemia. This morning, patient was AOx3 and encephalopathy resolved as well as bradycardia. Potassium was 4.5 postdialysis. Heart rate was around 82 bpm. Patient was restarted on metoprolol 100 mg once daily and hydralazine 100 3 times daily per nephrology recommendation today. We added nifedipine 60 mg once daily and added lisinopril 20 mg can increase dose tomorrow for better blood pressure control as blood pressure was persistently elevated. Will likely touch base with newspaper editor tomorrow to escalate with antihypertensive if needed. Labs were significant for leukocytosis 11.4 hemoglobin 11.1. Platelet count 195. Electrolyte panel and kidney functions postdialysis markedly improved. Lactic acid 2.6. Liver enzymes mildly elevated. Troponin I downtrended. LDL 40.Repeat EKG showed sinus rhythm with heart rate 72 and QTc 453. Exam Vital Signs Temp Pulse Resp BP Pulse Ox O2 Del Method O2 Flow Rate 99.5 F 82 3 L 194/96 H 96 Room Air 6 10/19/24 04:00 10/19/24 08:42 10/19/24 07:15 10/19/24 08:42 10/19/24 07:15 10/18/24 17:30 10/18/24 20:36 Narrative Exam GENERAL APPEARANCE: Patient is Polish-speaking AOx3 saturating well on room air. HEENT: NC, AT. MMM. EOMI, clear conjunctiva, oropharynx clear. Dialysis catheter seen. NECK: Supple without lymphadenopathy. No stiffness or restricted ROM. HEART: Regular rate and regular rhythm, normal S1/S2, no m/r/g LUNGS: CTAB, moving air well. No crackles or wheezes are heard. ABDOMEN: Soft, nontender, nondistended with good bowel sounds heard. BACK: No CVAT, no obvious deformity. EXTREMITIES: Without cyanosis, clubbing or edema. NEUROLOGICAL: Grossly nonfocal. Alert and oriented, moving all 4 extremities. CN not formally tested but appear grossly intact. Observed to ambulate with normal gait. Skin: Warm and dry without any rash. Psych: Appropriate mood and affect Objective Labs 10/20/24 04:45 10/20/24 04:45 Labs: Laboratory Results - last 24 hr 10/18/24 10/18/24 10/18/24 12:15 12:54 12:55 WBC 10.6 RBC 4.22 L Hgb 11.9 L Hct 36.4 L MCV 86 MCH 28.2 MCHC 32.7 RDW Std Deviation 49.1 H Plt Count 176 D Neut % (Auto) 86 H Lymph % (Auto) 9 L Roosevelt % (Auto) 4 Eos % (Auto) 1 Baso % (Auto) 0 Neut # (Auto) 9.1 H Lymph # (Auto) 1.0 Roosevelt # (Auto) 0.4 Eos # (Auto) 0.1 Baso # (Auto) 0.0 Immature Gran # (Auto) 0.03 H Absolute Nucleated RBC 0.00 Immature Gran % 0 Nucleated RBC % 0 PT Cancelled INR Cancelled APTT Cancelled Sodium 133 L Cancelled Potassium 7.4 H* Cancelled Chloride 97 L Cancelled Carbon Dioxide 22.9 Cancelled Anion Gap 13 Cancelled BUN 41 H Cancelled Creatinine 5.7 H* Cancelled Estim Creat Clear Calc 12.8 L Cancelled eGFR 11 L* Cancelled BUN/Creatinine Ratio 7 L Cancelled Glucose 416 H* Cancelled Estimated Ave Glu mg/dL 197 H Hemoglobin A1c 8.5 H Calculated Osmolality 294 Cancelled Lactic Acid 2.3 H Calcium 8.7 Cancelled Corrected Calcium 8.8 Cancelled Phosphorus Magnesium 2.0 Cancelled Total Bilirubin 0.2 L Cancelled AST 71 H Cancelled ALT 102 H Cancelled Alkaline Phosphatase 211 H Cancelled Troponin I 0.189 H* Cancelled B-Natriuretic Peptide 979 H* Total Protein 6.6 Cancelled Albumin 3.9 Cancelled Globulin 2.7 Cancelled Albumin/Globulin Ratio 1.4 Cancelled Triglycerides Cholesterol LDL Cholesterol, Calc HDL Cholesterol Cholesterol/HDL Ratio Procalcitonin 0.22 10/18/24 10/18/24 10/18/24 16:10 22:27 23:27 WBC RBC Hgb Hct MCV MCH MCHC RDW Std Deviation Plt Count Neut % (Auto) Lymph % (Auto) Roosevelt % (Auto) Eos % (Auto) Baso % (Auto) Neut # (Auto) Lymph # (Auto) Roosevelt # (Auto) Eos # (Auto) Baso # (Auto) Immature Gran # (Auto) Absolute Nucleated RBC Immature Gran % Nucleated RBC % PT INR APTT Sodium 136 141 Potassium 6.5 H* D 3.9 D Chloride 100 101 Carbon Dioxide 24.3 29.2 Anion Gap 12 11 BUN 41 H 16 Creatinine 5.8 H* 2.8 H D Estim Creat Clear Calc 12.6 L 23.1 L eGFR 11 L* 25 L BUN/Creatinine Ratio 7 L 6 L Glucose 331 H D [address] Glu mg/dL Hemoglobin A1c Calculated Osmolality 295 281 Lactic Acid 2.6 H Calcium 10.0 9.9 Corrected Calcium 10.2 H 9.9 Phosphorus 3.8 Magnesium 1.8 Total Bilirubin 0.3 AST 60 H ALT 95 H Alkaline Phosphatase 190 H D Troponin I 0.164 H* 0.170 H* B-Natriuretic Peptide Total Protein 6.4 Albumin 3.7 4.0 Globulin 2.7 Albumin/Globulin Ratio 1.4 Triglycerides Cholesterol LDL Cholesterol, Calc HDL Cholesterol Cholesterol/HDL Ratio Procalcitonin 10/19/24 04:51 WBC 11.4 H RBC 3.91 L Hgb 11.1 L Hct 33.0 L MCV 84 MCH 28.4 MCHC 33.6 RDW Std Deviation 46.7 H Plt Count 195 Neut % (Auto) 86 H Lymph % (Auto) 9 L Roosevelt % (Auto) 4 Eos % (Auto) 1 Baso % (Auto) 0 Neut # (Auto) 9.8 H Lymph # (Auto) 1.1 Roosevelt # (Auto) 0.4 Eos # (Auto) 0.1 Baso # (Auto) 0.0 Immature Gran # (Auto) 0.03 H Absolute Nucleated RBC 0.00 Immature Gran % 0 Nucleated RBC % 0 PT 11.9 INR 1.1 APTT 27.3 Sodium 138 Potassium 4.5 D Chloride 100 Carbon Dioxide 26.1 Anion Gap 12 BUN 18 Creatinine 3.5 H D Estim Creat Clear Calc 18.5 L eGFR 19 L BUN/Creatinine Ratio 5 L Glucose [address] Glu mg/dL Hemoglobin A1c Calculated Osmolality 277 Lactic Acid Calcium 8.9 Corrected Calcium 9.3 Phosphorus 5.1 Magnesium 1.6 Total Bilirubin 0.3 AST 42 H ALT 78 H Alkaline Phosphatase 166 H D Troponin I 0.161 H* B-Natriuretic Peptide Total Protein 6.2 Albumin 3.5 D Globulin 2.7 Albumin/Globulin Ratio 1.3 Triglycerides 106 Cholesterol 106 L LDL Cholesterol, Calc 40 HDL Cholesterol 45 Cholesterol/HDL Ratio 2.4 L Procalcitonin Quality Measures Quality Measures VTE prophylaxis Assessment & Plan Assessment Current Active Medications: Generic Name Dose Route Start Last Admin Trade Name Freq PRN Reason Stop Dose Admin Acetaminophen 650 mg 10/18/24 15:30 10/18/24 19:57 Acetaminophen 325 Mg Tablet PO 11/17/24 15:29 650 mg Q6H PRN Administration Fever >101.5 Atorvastatin Calcium 80 mg 10/19/24 09:00 10/19/24 08:43 Atorvastatin Calcium 20 Mg Tablet PO 11/18/24 08:59 80 mg QDAY TAMIA Administration Atropine Sulfate 0.5 mg 10/18/24 15:35 Atropine Sulf Inj 0.1 Mg/Ml Syr 10 Ml IVP Q3M PRN bradicardia Dextrose 25 ml 10/18/24 14:32 Dextrose 50%-Water Inj 50 Ml Syringe IV 11/17/24 14:31 Q15MIN PRN BG 50-70 responsive npo pt Dextrose 50 ml 10/18/24 14:32 Dextrose 50%-Water Inj 50 Ml Syringe IV 11/17/24 14:31 Q15MIN PRN BG <50 OR BG <70 & pt unresponsive Glucagon 1 mg 10/18/24 18:23 Glucagon Inj 1 Mg Vial IM Q15MIN PRN BG <70, and no IV access Heparin Sodium (Porcine) 5,000 unit 10/18/24 22:00 10/19/24 05:21 Heparin Sod Inj 5000 Unit/Ml Vial SC 11/01/24 21:59 5,000 unit Q8HR TAMIA Administration Heparin Sodium (Porcine) 3,500 unit 10/18/24 21:13 10/18/24 21:50 Heparin Sod Inj 1000 Unit/Ml Vial 10 Ml INDWELLCAT 11/01/24 21:12 3,500 unit PRN PRN Administration DIALYSIS Hydralazine HCl 10 mg 10/19/24 06:24 10/19/24 06:29 Hydralazine Inj 20 Mg/Ml Vial IV 11/17/24 17:45 10 mg Q4HR PRN Administration hypertension Hydralazine HCl 100 mg 10/19/24 08:00 10/19/24 08:42 Hydralazine Hcl 25 Mg Tablet PO 11/18/24 07:59 100 mg TID@0800,1600,2300 TAMIA Administration Albumin Human 25 gm in 100 mls @ 100 mls/min 10/18/24 16:04 Albuminar-25 Ivpb IV PRN PRN DIALYSIS Dopamine HCl/Dextrose 400 mg in 250 mls @ 11.775 mls/hr 10/18/24 22:03 Intropin In D5w Ivpb IV 11/17/24 21:35 .[id number] PRN BRADYCARDIA Protocol 5 MCG/KG/MIN Insulin Human Lispro 0 unit 10/18/24 18:30 10/19/24 05:12 Insulin Lispro (Admelog) 1 Unit/0.01 Ml Unit SC 11/17/24 18:29 Not Given Q6HR TAMIA Protocol Metoprolol Succinate 100 mg 10/19/24 09:00 10/19/24 08:42 Metoprolol Succinate Xl 25 Mg Tabcr PO 11/18/24 08:59 100 mg QDAY TAMIA Administration Ondansetron HCl 4 mg 10/18/24 15:30 10/19/24 07:41 Ondansetron Inj 2 Mg/Ml Inj 2 Ml IV 11/17/24 15:29 4 mg Q6H PRN Administration NAUSEA OR VOMITING Protocol Pantoprazole Sodium 40 mg 10/19/24 09:00 10/19/24 08:43 Pantoprazole Inj 40 Mg Vial IVP 11/18/24 08:59 40 mg QDAY TAMIA Administration Plan This 79-year-old male with past medical history of uncontrolled hypertension, hyperlipidemia, DM type II, ESRD followed by Dr. Bustos receiving hemodialysis on Tuesday//Tuesday was admitted for symptomatic bradycardia secondary due to hyperkalemia.. Patient is downgraded from ICU after management of symptomatic bradycardia, acute encephalopathy and critical hyperkalemia postdialysis. Patient is AOx3, bradycardia has resolved and potassium postdialysis within normal limits. #ESRD on hemodialysis Tuesday //Tuesday #Hyperkalemia ,Resolved Patient was supposed to have a hemodialysis session today, however did not completed. On admission received hyperkalemia cocktail Patient presented with symptomatic bradycardia and urgent dialysis was performed. Patient does make a little urine and was not having burning or dysuria. Urgent hemodialysis performed on admission -Electrolyte panel and kidney functions postdialysis markedly improved. -[employer] Repairer recommended to hold off dialysis today -Potassium within normal limits 4.5 -Nephrology was consulted, will follow-up with recommendation -Avoid nephrotoxins -Renally dose medications -Strict TASHA's #Hypertensive emergency #History of uncontrolled hypertension #Secondary due to ESRD, Patient is not on any antihypertensive medications including hydralazine, clonidine, metoprolol, and nifedipine, all at high doses Last echo was done on 04/17/2024 which revealed left ventricular hypertension, estimated EF of 65 to 70%, moderate pericardial effusion mostly located to the posterolateral aspect with no evidence of cardiac tamponade. Mild mitral regurgitation, moderate tricuspid regurgitation left pleural effusion ?Restarted metoprolol 100 mg once daily, hydralazine 100 mg 3 times daily, nifedipine 60 mg once daily and started lisinopril 20 mg ?Hold off dialysis today ?Hydralazine as needed for SBP more than 170, DBP more than 110 ?Continuous monitoring of vitals ?Troponin I downtrended #Acute encephalopathy resolved secondary to symptomatic bradycardia Episode of seizures Patient had ED head episode of seizure, unresponsive, CODE BLUE was called, after receiving 2 dose of atropine as well as percutaneous pacing patient regained consciousness, and seizure stopped. Patient also received 1 dose of Keppra loading dose. ? Continue close monitor mental status ? 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 Currently heart rate is well-controlled ?Repeat EKG showed sinus rhythm with heart rate 72 and QTc 453. ?Echocardiogram pending ?Heart rate around 78-82 bpm ?Currently controlled blood pressure #Lactic acidosis ? Lactic acid 2.6. ?Lactic acid downtrending ? Anticipating improvement in his decision of dialysis tomorrow #Elevated liver enzymes ?Liver enzymes mildly elevated. ?Holding statins ? Trend LFTs #Hyperlipidemia ?LDL 40 ?Resuming home atorvastatin once LFTs are improved #History of diabetes Insulin sliding scale A1c: #Anemia of chronic disease #Leukocytosis -Leukocytosis 11.4 hemoglobin 11.1. Platelet count 195. No signs of symptoms of acute bleeding Continue to monitor Disposition: Patient is admitted for symptomatic bradycardia and acute encephalopathy due to hyperkalemia related to ESRD that has resolved. Currently getting managed for hypertensive emergency. DVT prophylaxis: Heparin GI prophylaxis: PPI Diet: Renal diet Lines: PIV CODE STATUS:Full code Patient was seen and discussed with attending physician, Dr. Mike Schwartz MD, PGY 2 Attending Provider Attestation/Addendum I reviewed labs, imaging, EKG, home medications and prior available records. Face to face evaluation was performed by me. I have personally examined the patient and discussed assessment and plan with the IM team. I reviewed the resident note and agree with the plan with exceptions as below. ESRD on hemodialysis Symptomatic bradycardia secondary to hyperkalemia Hyperkalemia Hypertensive emergency Elevated troponin Type 2 diabetes mellitus Hyperlipidemia Status post emergent hemodialysis in the ICU HR improved Potassium improved after hemodialysis BP is still critical. Started nifedipine. Continue hydralazine and metoprolol. Nephrology is consulted and following. Monitor BP
[2024-10-19] MEDS: NIFEdipine XL 30 MG TABCR PO ×3 (13:16→17:33)
--- NOTE | 2024-10-19 15:30 | ECHO_ITS ---
Transthoracic Echo Report Ht (in): 63 Wt (lb): 140 Exam Location: [facility] Status: Inpatient Passport Application Examiner: GAINES Walter^^^^ Indications: Procedure Performed: BP: 194 / 96 HR: 94 Technical Quality: Fair MEASUREMENTS (Male / Female) Normal Values 2D ECHO LV Diastolic Diameter PLAX 5.1 cm 4.2 - 5.9 / 3.9 - 5.3 cm LV Systolic Diameter PLAX 3.5 cm IVS Diastolic Thickness 1.1 cm 0.6 - 1.0 / 0.6 - 0.9 cm LVPW Diastolic Thickness 0.9 cm 0.6 - 1.0 / 0.6 - 0.9 cm LV Relative Wall Thickness 0.4 LVOT Diameter 1.8 cm Aortic Root Diameter 2.7 cm LA Systolic Diameter LX 4.0 cm 3.0 - 4.0 / 2.7 - 3.8 cm LV Ejection Fraction MOD 4C 59.8 % LV Cardiac Index MOD 4C 6318.9 cm?/min?m? LV Ejection Fraction 4C AL 59.2 % LV Cardiac Index 4C AL 6447.4 cm?/min?m? LA Volume Index 60.4 cm?/m? 16 - 28 cm?/m? Ascending Aorta Diameter 2.8 cm DOPPLER AV Peak Velocity 181.5 cm/s AV Peak Gradient 13.2 mmHg AV Mean Gradient 7.0 mmHg AV Velocity Time Integral 31.2 cm LVOT Peak Velocity 123.0 cm/s LVOT Peak Gradient 6.1 mmHg LVOT Velocity Time Integral 30.6 cm LVOT Cardiac Index 4327.5 cm?/min?m? AV Area Cont Eq vti 2.5 cm? AV Area Cont Eq pk 1.7 cm? MV Peak Velocity 142.0 cm/s MV Peak Gradient 8.1 mmHg MV Mean Velocity 106.0 cm/s MV Mean Gradient 5.0 mmHg MV Area PHT 2.8 cm? MR Peak Velocity 426.0 cm/s MR Peak Gradient 72.6 mmHg Mitral E Point Velocity 139.0 cm/s Mitral A Point Velocity 121.0 cm/s Mitral E to A Ratio 1.1 LV E' Lateral Velocity 8.1 cm/s Mitral E to LV E' Lateral Ratio 17.1 LV E' Septal Velocity 5.3 cm/s Mitral E to LV E' Septal Ratio 26.0 TR Peak Velocity 344.7 cm/s TR Peak Gradient 47.5 mmHg PV Peak Velocity 105.0 cm/s PV Peak Gradient 4.4 mmHg RVOT Peak Velocity 71.7 cm/s FINDINGS Left Ventricle Normal left ventricular size, wall thickness, systolic function with no obvious regional wall motion abnormalities. There is grade II diastolic dysfunction of the left ventricle (pseudonormal filling pattern). The left ventricular ejection fraction is normal, estimated at 55-60%. Right Ventricle The right ventricle is normal in size and systolic function. The estimated right ventricular systolic pressure is moderately elevated 54 mmHg. Left Atrium Moderately increased left atrial volume 60.4 mL/m?. Right Atrium Normal right atrial size with no evidence of thrombus formation. Atrial Septum The interatrial septum appears normal with no evidence of a shunt. Aorta The aorta is normal by two-dimensional, color flow and Doppler interrogation. Mitral Valve Mild mitral annular calcification. Mild mitral regurgitation. Aortic Valve Aortic valve sclerosis. Calcification of the right coronary cusp. Tricuspid Valve There is moderate tricuspid regurgitation. Pulmonic Valve Trivial pulmonic valve regurgitation. Vessels The pulmonary artery appears normal. The inferior vena cava pulmonary and hepatic veins appear normal. Pericardium The pericardium is normal by two-dimensional imaging. There is no significant pericardial effusion. CONCLUSIONS indication: bradicardia LV appears normal with EF 55-60%. Diastolic Dysfunction II present. RV appears normal with RVSP moderately elevated 54 mmHg. LA is moderately dilated. Mild MAC & MR AOV sclerosis & calcification Moderate TR Kirk Neal (Electronically Signed) Final Date: 20 October 2024 11:52
[2024-10-19] MEDS: FERROUS SULF 325 MG TABLET PO (15:40)
[2024-10-19] MEDS: Magnesium Sulfate 2 GM Ivpb 2 GM/50 ML BAG IV (15:40)
[2024-10-19] MEDS: Lisinopril 20 MG TABLET PO (15:41)
--- NOTE | 2024-10-19 15:54 | PD.RESPRO ---
Documentation for date of: 10/19/24 Subjective Subjective Interval history: A 59-year-old male with past medical history of hypertension, hyperlipidemia, type 2 diabetes mellitus, ESRD on HD [] is referred to the hospital by the dialysis center in view of low blood pressures and low heart rate. Patient was apparently normal till yesterday. Patient took all his medications as prescribed on the day before of admission. On the day of admission, in the morning patient noted low blood pressures when he checked at home, later he went to dialysis center for HD as per his routine schedule. In the dialysis center, patient was found to have heart rate of around 40 following which patient was immediately referred to the hospital. Patient denies chest discomfort, palpitations, syncopal like episodes, skipping of heartbeats, lower extremity edema. Patient reported that he is on dialysis since March 2024, likely due to her uncontrolled hypertension and diabetes. But also stated that he is able to produce some amount of urine. On the day of admission, patient only took baby aspirin. Last hemodialysis is on Tuesday before the day of admission ED course: -Initial vitals are blood pressure 102/61 mmHg, pulse rate 38/minute, respiratory rate 16/min, temperature 95.1 ?F, SpO2 98% with room air -Later patient suddenly went into asystole and became hemodynamically unstable for which patient was given 2 dose of atropine, placed on temporary pacing following which patient regained consciousness -Later labs showed sodium 133, potassium 7.4, chloride 97, BUN 41, creatinine 5.7, glucose 468, lactate 2.3, AST 71, ALT 102, ALP 211, troponin 0.189. EKG showed sinus bradycardia -Chest x-ray showed mild vascular congestion bilaterally -Patient received hyperkalemia protocol Nephrology was consulted for emergent hemodialysis 10/19/2024 Patient is seen and examined at bedside As patient is doing well even without pacemaker and no episode of bradycardia, patient is downgraded to floors for further management Vitals showed elevated blood pressures recommended to give max doses of hydralazine and nifedipine for now. If not controlled, will add other antihypertensive medications Labs showed WBC 11.4, Hb 11.1, platelets 195, sodium 138, potassium 4.5, chloride 100, bicarb 26.1, BUN 18, creatinine 3.5 Patient will receive dialysis as per his routine schedule Talk to the patient with the family at the bedside and explained about avoiding potassium rich diets Also informed the nurse to involve dietitian to explain about the potassium rich foods Exam Vital Signs Temp Pulse Resp BP Pulse Ox O2 Del Method O2 Flow Rate 98.9 F 80 18 191/98 H 96 Room Air 6 10/19/24 11:58 10/19/24 15:42 10/19/24 14:30 10/19/24 15:42 10/19/24 14:30 10/19/24 11:58 10/18/24 20:36 Narrative Exam General: Awake. HEENT: Normocephalic, atraumatic, mucous membranes moist. Heart: Regular rate and rhythm, no murmurs. Lungs: Clear to auscultation with no wheezing or crackles. TDC on right chest, appears sterile Abdomen: Soft, nondistended, nontender, positive bowel sounds. ?No guarding or rebound tenderness. Neurologic: Alert and oriented x3, no gross neurological deficit, and patient able to move all 4 extremities. Extremities: No edema. Skin: No rash or ecchymoses. Objective Labs 10/20/24 04:45 10/20/24 04:45 Labs: Laboratory Results - last 24 hr 10/18/24 10/18/24 10/18/24 12:54 16:10 22:27 WBC RBC Hgb Hct MCV MCH MCHC RDW Std Deviation Plt Count Neut % (Auto) Lymph % (Auto) [place] % (Auto) Eos % (Auto) Baso % (Auto) Neut # (Auto) Lymph # (Auto) [place] # (Auto) Eos # (Auto) Baso # (Auto) Immature Gran # (Auto) Absolute Nucleated RBC Immature Gran % Nucleated RBC % PT INR APTT Sodium 136 141 Potassium 6.5 H* D 3.9 D Chloride 100 101 Carbon Dioxide 24.3 29.2 Anion Gap 12 11 BUN 41 H 16 Creatinine 5.8 H* 2.8 H D Estim Creat Clear Calc 12.6 L 23.1 L eGFR 11 L* 25 L BUN/Creatinine Ratio 7 L 6 L Glucose 331 H D [address] Glu mg/dL 197 H Hemoglobin A1c 8.5 H Calculated Osmolality 295 281 Lactic Acid 2.6 H Calcium 10.0 9.9 Corrected Calcium 10.2 H 9.9 Phosphorus 3.8 Magnesium 1.8 Total Bilirubin 0.3 AST 60 H ALT 95 H Alkaline Phosphatase 190 H D Troponin I 0.164 H* Total Protein 6.4 Albumin 3.7 4.0 Globulin 2.7 Albumin/Globulin Ratio 1.4 Triglycerides Cholesterol LDL Cholesterol, Calc HDL Cholesterol Cholesterol/HDL Ratio 10/18/24 10/19/24 23:27 04:51 WBC 11.4 H RBC 3.91 L Hgb 11.1 L Hct 33.0 L MCV 84 MCH 28.4 MCHC 33.6 RDW Std Deviation 46.7 H Plt Count 195 Neut % (Auto) 86 H Lymph % (Auto) 9 L [place] % (Auto) 4 Eos % (Auto) 1 Baso % (Auto) 0 Neut # (Auto) 9.8 H Lymph # (Auto) 1.1 [place] # (Auto) 0.4 Eos # (Auto) 0.1 Baso # (Auto) 0.0 Immature Gran # (Auto) 0.03 H Absolute Nucleated RBC 0.00 Immature Gran % 0 Nucleated RBC % 0 PT 11.9 INR 1.1 APTT 27.3 Sodium 138 Potassium 4.5 D Chloride 100 Carbon Dioxide 26.1 Anion Gap 12 BUN 18 Creatinine 3.5 H D Estim Creat Clear Calc 18.5 L eGFR 19 L BUN/Creatinine Ratio 5 L Glucose [address] Glu mg/dL Hemoglobin A1c Calculated Osmolality 277 Lactic Acid Calcium 8.9 Corrected Calcium 9.3 Phosphorus 5.1 Magnesium 1.6 Total Bilirubin 0.3 AST 42 H ALT 78 H Alkaline Phosphatase 166 H D Troponin I 0.170 H* 0.161 H* Total Protein 6.2 Albumin 3.5 D Globulin 2.7 Albumin/Globulin Ratio 1.3 Triglycerides 106 Cholesterol 106 L LDL Cholesterol, Calc 40 HDL Cholesterol 45 Cholesterol/HDL Ratio 2.4 L Quality Measures Quality Measures VTE prophylaxis Assessment & Plan Assessment Current Active Medications: Generic Name Dose Route Start Last Admin Trade Name Freq PRN Reason Stop Dose Admin Acetaminophen 650 mg 10/18/24 15:30 10/18/24 19:57 Acetaminophen 325 Mg Tablet PO 11/17/24 15:29 650 mg Q6H PRN Administration Fever >101.5 Albuterol 1 puff 10/19/24 14:22 Albuterol Inh 8 Gm INH 11/18/24 14:21 Q4H PRN Shortness Of Breath Or Wheezing Aspirin 81 mg 10/20/24 09:00 Aspirin Ec 81 Mg Tabec PO 11/19/24 08:59 DAILY TAMIA Atorvastatin Calcium 80 mg 10/19/24 09:00 10/19/24 08:43 Atorvastatin Calcium 20 Mg Tablet PO 11/18/24 08:59 80 mg QDAY TAMIA Administration Atropine Sulfate 0.5 mg 10/18/24 15:35 Atropine Sulf Inj 0.1 Mg/Ml Syr 10 Ml IVP Q3M PRN bradicardia Dextrose 25 ml 10/18/24 14:32 Dextrose 50%-Water Inj 50 Ml Syringe IV 11/17/24 14:31 Q15MIN PRN BG 50-70 responsive npo pt Dextrose 50 ml 10/18/24 14:32 Dextrose 50%-Water Inj 50 Ml Syringe IV 11/17/24 14:31 Q15MIN PRN BG <50 OR BG <70 & pt unresponsive Ferrous Sulfate 325 mg 10/19/24 14:30 10/19/24 15:40 Ferrous Sulf 325 Mg Tablet PO 11/18/24 14:29 325 mg QOD TAMIA Administration Glucagon 1 mg 10/18/24 18:23 Glucagon Inj 1 Mg Vial IM Q15MIN PRN BG <70, and no IV access Heparin Sodium (Porcine) 5,000 unit 10/18/24 22:00 10/19/24 15:40 Heparin Sod Inj 5000 Unit/Ml Vial SC 11/01/24 21:59 5,000 unit Q8HR TAMIA Administration Heparin Sodium (Porcine) 3,500 unit 10/18/24 21:13 10/18/24 21:50 Heparin Sod Inj 1000 Unit/Ml Vial 10 Ml INDWELLCAT 11/01/24 21:12 3,500 unit PRN PRN Administration DIALYSIS Hydralazine HCl 10 mg 10/19/24 06:24 10/19/24 10:47 Hydralazine Inj 20 Mg/Ml Vial IV 11/17/24 17:45 10 mg Q4HR PRN Administration hypertension Hydralazine HCl 100 mg 10/19/24 08:00 10/19/24 15:42 Hydralazine Hcl 25 Mg Tablet PO 11/18/24 07:59 100 mg TID@0800,1600,2300 TAMIA Administration Albumin Human 25 gm in 100 mls @ 100 mls/min 10/18/24 16:04 Albuminar-25 Ivpb IV PRN PRN DIALYSIS Magnesium Sulfate 2 gm in 50 mls @ 25 mls/hr 10/19/24 15:14 10/19/24 15:40 Magnesium Sulfate Ivpb IV 10/19/24 17:13 25 mls/hr X1 ONE Administration Insulin Human Lispro 0 unit 10/18/24 18:30 10/19/24 12:46 Insulin Lispro (Admelog) 1 Unit/0.01 Ml Unit SC 11/17/24 18:29 Not Given Q6HR TAMIA Protocol Lisinopril 20 mg 10/19/24 14:30 10/19/24 15:41 Lisinopril 20 Mg Tablet PO 11/18/24 14:29 20 mg QDAY TAMIA Administration Metoprolol Succinate 100 mg 10/19/24 10:02 Metoprolol Succinate Xl 25 Mg Tabcr PO 11/18/24 08:59 QDAY TAMIA Nifedipine 60 mg 10/20/24 09:00 Nifedipine Xl 30 Mg Tabcr PO 11/19/24 08:59 QDAY TAMIA Ondansetron HCl 4 mg 10/18/24 15:30 10/19/24 07:41 Ondansetron Inj 2 Mg/Ml Inj 2 Ml IV 11/17/24 15:29 4 mg Q6H PRN Administration NAUSEA OR VOMITING Protocol Pantoprazole Sodium 40 mg 10/19/24 09:00 10/19/24 08:43 Pantoprazole Inj 40 Mg Vial IVP 11/18/24 08:59 40 mg QDAY TAMIA Administration Vitamin B Complex/Vit C/Folic Acid 1 tab 10/20/24 09:00 Vit B12/Vit C/Fa (Nephrovite) Tablet PO 11/19/24 08:59 QDAY [facility] Plan A 59-year-old male with past medical history of hypertension, hyperlipidemia, type 2 diabetes mellitus, ESRD on HD [/] is referred to the hospital by the dialysis center in view of low blood pressures and low heart rate. # ESRD on HD [//TUE], since 2023 Likely due to uncontrolled hypertension and diabetes mellitus -Patient is started on HD since March 2024 and compliant with his dialysis sessions, last session is on 10/16/2024 -Presented to the hospital with low heart rate noted in the dialysis unit -In the ED, patient was found to have a heart rate of 38 bpm and patient was externally paced -Labs done at the time of admission showed potassium of 7.4, BUN 41, creatinine 5.7, bicarb 22.9, anion gap 13 -Chest x-ray showed mild bilateral vascular congestion Plan -Received emergent hemodialysis on 10/18/2024 and will continue his dialysis sessions as per his routine schedule -Recommended to monitor renal functions with electrolytes -Avoid nephrotoxic medications and renally dose medications # Hyperkalemia, resolved Likely due to ESRD -Potassium at the time of presentation is 7.4 -Patient came to the hospital with low heart rate and later went into asystole in the hospital for which patient was given 2 doses of atropine and started on external pacing -Patient received hyperkalemic protocol including calcium, [place], insulin -Repeat potassium after 3 hours on the day of admission is 6.5, potassium on 10/19/2024 is 4.5 Plan -Received emergent HD on 10/18/2024 and will continue his dialysis sessions as per his routine schedule -Recommend to monitor electrolytes and correct accordingly # Mild hyponatremia, Pseudohyponatremia -Sodium at the time of admission is 133, osmolality is 295 -Glucose is 416 -Corrected sodium will be within normal limits -Repeat sodium is 136 after 3 hours -Recommended to monitor electrolytes and replete accordingly # Uncontrolled diabetes mellitus -HbA1c at the time of admission is 8.5 -Patient is using Januvia at home -Recommended insulin sliding scale and strict control of blood sugars # Anemia, normocytic normochromic Likely anemia of chronic kidney disease -Hemoglobin at the time of admission is 11.9 Plan -Will give erythropoietin injections during hemodialysis # History of hypertension -Patient is using nifedipine, metoprolol, hydralazine, clonidine at home -Blood pressures at the time of admission is within normal limits -Recommended to continue max doses of nifedipine and hydralazine and to monitor blood pressures and resume medications as needed # Symptomatic bradycardia s/p external pacing # Hyperlipidemia -Rest of the medical conditions to be treated as per primary team Thank you for allowing us to involved in the care of the patient Patient plan of care was discussed with the attending physician, Dr. Akash Harden, PGY1 Attending Provider Attestation/Addendum Patient seen and examined with resident physician Dr. Hopson. Note reviewed, agree with findings and recommendations. Patient admitted with symptomatic hyperkalemia/ Asystole and was resuscitated with atropine. Renal consultation requested for need for emergency dialysis as potassium was 7.4. Patient received dialysis yesterday and the potassium today is much better. Blood pressure seems to be significantly elevated-adjusted medications. Patient will be stepdown from ICU to telemetry.
[2024-10-19] MEDS: INSULIN LISPRO (AdmeLOG) 1 UNIT/0.01 ML UNIT SC ×2 (17:01→21:21)
--- NOTE | 2024-10-19 17:48 | PC.SS ---
PRIVATE EQUITY ANALYST conducted phone contact with the patient?s spouse, Helena Chakraborty to conduct initial assessment and to discuss discharge planning.? PRIVATE EQUITY ANALYST utilized fudge candy maker to assist with discussion.? Patient resides at home with spouse.? Patient does not utilize DME to assist with ambulation. ?Patient does not utilize home oxygen.? Patient is independent with completion of ADL?s. Patient?s medical surrogate decision maker is son, spouse, Helena Chakraborty [phone].? Patient?s PCP is MARLENE Adams.? The patient?s dermatology technician is Antonina Jessica.? The patient?s street sweeper is Dr. Bustos.? Dialysis schedule is , and Tue.? Patient utilizes [facility] for medication services.? Discharge plan is for the patient to return home at the time of discharge.? Family will provide transportation on behalf of the patient.? No needs identified by the patient.? No further intervention required at this time, social work specialist will be available to address any further concerns.? Next of Kin: Helena Chakraborty D/C Plan: Home
[2024-10-20] VITALS (27 sets, daily range): BP systolic 135–187; BP diastolic 71–90; PULSE 68–87; RESP 13–16; TEMP 36–36.8; O2SAT 98–99; BMI 25.1
[2024-10-20] MEDS: HEPARIN SOD INJ 5000 UNIT/ML VIAL SC ×2 (05:12→13:51)
[2024-10-20 06:04] LABS: Basophils % (Auto) 1 % (0-2.5); Eosinophils # (Auto) 0.2 Thou/mm3 (0.0-0.5); Eosinophils % (Auto) 2 % (0-10); Hematocrit 34.4 % (41.0-53.0); Hemoglobin 11.2 g/dL (13.5-16.0); Immature Granulocytes % (Auto) 0 % (0-0); Immature Granulocytes Auto 0.02 Thou/mm3 (0.00-0.00); Lymphocytes # (Auto) 1.9 Thou/mm3 (1.0-4.8); Lymphocytes % (Auto) 22 % (10-50); Mean Corpuscular HGB Conc 32.6 g/dl (31.0-37.0); Mean Corpuscular Hemoglobin 28.3 pg (25.0-35.0); Mean Corpuscular Volume 87 fL (80-100); Monocytes # (Auto) 0.6 Thou/mm3 (0.0-0.8); Monocytes % (Auto) 7 % (0-12); Neutrophils # (Auto) 5.7 Thou/mm3 (1.8-7.7); Neutrophils % (Auto) 68 % (37-80); Nucleated Red Blood Cell % 0 /100 WBC (0); Platelet Count 176 Thou/mm3 (140-440); RDW Standard Deviation 49.2 fL (35.1-43.9); Red Blood Count 3.96 Miln/mm3 (4.50-5.90); White Blood Count 8.4 Thou/mm3 (3.8-10.6)
[2024-10-20 06:23] LABS: Alanine Aminotransferase 62 U/L (10-49); Albumin, Serum 3.5 gm/dL (3.5-5.0); Albumin/Globulin Ratio 1.3 (1.2-2.2); Alkaline Phosphatase 153 U/L (46-116); Anion Gap 12 (7-16); Aspartate Amino Transferase 39 U/L (0-34); BUN/Creatinine Ratio 5 Ratio (12-20); Bilirubin,Total 0.2 mg/dL (0.3-1.2); Blood Urea Nitrogen 28 mg/dL (9-23); Calcium 8.3 mg/dL (8.3-10.6); Calcium (Corrected) 8.7 mg/dL (8.5-10.1); Chloride 101 mMol/L (98-107); Creatinine (Component) 5.2 mg/dL (0.6-1.3); Globulin 2.6 gm/dL (2.3-3.5); Glucose 189 mg/dL (74-106); Magnesium 1.8 mg/dL (1.6-2.6); Osmolality,Calculated 288 (275-295); Phosphorous 6.3 mg/dL (2.4-5.1); Potassium 4.2 mMol/L (3.4-5.1); Sodium 139 mMol/L (136-145); Total Protein 6.1 gm/dL (5.7-8.2); eGFR 12 See Note
[2024-10-20] MEDS: INSULIN LISPRO (AdmeLOG) 1 UNIT/0.01 ML UNIT SC ×2 (07:39→12:35)
--- NOTE | 2024-10-20 10:58 | PD.RESDS ---
Planned Discharge Date 10/20/24 DS: Providers Provider Date of admission: 10/18/24 15:58 Primary care physician: Jim Driscoll PA-C Admitting Provider: Connie Newell MD Attending Provider on Admission: Connie Newell MD Attending Provider on DC: Agnes Ford MD Discharging Provider: Agnes Ford MD DS: Diagnosis Problem List Completed Was Problem List Reviewed/Reconciled?: Yes Hospital Course Hospital Course Hospital course: Patient was a 79-year-old male with uncontrolled hypertension in the setting of ESRD on HD (TTS), HLD, T2DM who was admitted to the ICU for symptomatic bradycardia secondary to hyperkalemia. Patient required atropine and percutaneous pacer, with emergent dialysis. As hyperkalemia improved and temporary pacemaker was discontinued, patient was deemed stable for downgrade to hospitalist team. He was monitored and completed hemodialysis per regular schedule on Friday 10/20. Hypertensive medications were resumed. Patient was deemed stable for discharge. #ESRD on HD, TTS #Hyperkalemia, resolved #Hypertensive emergency #History of uncontrolled hypertension #Acute encephalopathy, resolved #Symptomatic bradycardia, resolved #?Brash syndrome #Lactic acidosis, improved #Transaminitis, improved #HLD #T2DM #Chronic normocytic anemia #Leukocytosis, resolved Patient seen and care discussed with my attending Dr. Mckeon. Agnes Ford MD PGY-3 Status at Discharge Cognitive/behavioral status at discharge: AAOx3 Time Spent with Patient Time attestation: Total time spent providing and/or coordinating discharge services: Time spent: Greater than 30 minutes Exam Vital Signs Temp Pulse Resp BP Pulse Ox O2 Del Method O2 Flow Rate 97.1 F 75 16 150/71 H 99 Room Air 6 10/20/24 08:52 10/20/24 10:45 10/20/24 08:52 10/20/24 10:45 10/20/24 08:52 10/20/24 08:42 10/18/24 20:36 Narrative Exam Gen: AAOx3, resting comfortably, pleasant to speak with HEENT: NCAT, PERRLA, EOMI, MMM, TDC noted, clean/dry CVS: normal S1, S2. RRR. No MRG Resp: CTA B/L. No rhonchi, rales, crackles or wheezing Abd: soft, non-tender, non-distended. BS+ in all 4 quadrants MSK: Good ROM in BUE & BLE. No edema or rash. Neuro: CN II-XII grossly intact. Strength 5/5 in BUE & BLE. Discharge Plan Plan Patient Disposition: HOME (Self Care) Patient condition on transfer: Stable Care Plan Goals: Follow-up with your PCP within 1 week of discharge Follow-up with Dr. Bustos within 1 to 2 weeks of discharge Continue hemodialysis as per schedule Monitor your dietary intake of potassium Take your antihypertensives as prescribed, with the following changes: -Your metoprolol succinate was changed to carvedilol 12.5 mg twice daily with meals -Holding your clonidine at this time. As long as your blood pressure remains stable you can continue holding and have your PCP or Dr. Bustos resume it If your symptoms return/worsen, please return to your nearest ED Prescriptions/Referrals Prescriptions/Med Rec: New carvedilol 12.5 mg Tablet 12.5 mg PO BIDWM 30 Days Qty: 60 1RF Continued aspirin 81 mg tablet,delayed release (/EC) 81 mg PO DAILY Patient Comments: TOME JALEEL TABLETA TODOS LOS D FOR 90 DAYS Januvia 25 mg tablet 25 mg PO QDAY albuterol sulfate 90 mcg/actuation HFA aerosol inhaler 1 puff INHALATION Q4H PRN (Reason: Shortness Of Breath Or Wheezing) Patient Comments: INHALE UN SOPLIDO INTO THE LUNGS CADA CUATRO HORAS CUANDO SEA NECESARIO FOR 30 DAYS Alvina-Ming 0.8 mg Tablet 1 tab PO QDAY hydralazine 100 mg tablet 100 mg PO TID@0800,1600,2300 Qty: 90 0RF atorvastatin 80 mg Tablet 80 mg PO QDAY ferrous sulfate 325 mg (65 mg iron) tablet 325 mg PO Q OTHER DAY Edarbi 80 mg tablet 80 mg PO QAM Changed nifedipine 90 mg tablet extended release 90 mg PO DAILY 30 Days Qty: 0 0RF Held clonidine HCl 0.2 mg Tablet 0.2 mg PO BID Hold Instructions: Resume on 11/03/24. If your blood pressure remains stable, 160 or less, you can hold clonidine until advised to resume by your primary care or manager of exhibitions and collections Discontinued metoprolol succinate 100 mg Tablet Extended Release 24 Hr 100 mg PO QDAY Referrals: Jim Driscoll PA-C [Primary Care Provider] - Patient/Caregiver Discharge Instructions Other Discharge Diet Instructions: low potassium diet Education Materials: Kidney Disease Potassium in Diet, Hypertension Dc, Hyperkalemia Dc, ED Bradycardia Print Language: Khmer Stand Alone Forms: Atiya Award Info., Patient Portal Info Letter Discharge Order Discharge Orders: Discharge (Routine); Ordered 10/20/24 Ordered By: Agnes Ford Quality Discharge Quality Measures VTE prophylaxis MD Attestestation MD Attestation I reviewed labs, imaging, EKG, home medications and prior available records. Face to face evaluation was performed by me. I have personally examined the patient and discussed assessment and plan with the IM team. I reviewed the resident note and agree with the plan with exceptions as below. ESRD on hemodialysis Symptomatic bradycardia secondary to hyperkalemia Hyperkalemia Hypertensive emergency Elevated troponin Type 2 diabetes mellitus Hyperlipidemia Status post emergent hemodialysis in the ICU HR improved Potassium improved after hemodialysis BP improved. Discussed with nephrology: Will discharge on carvedilol, hydralazine, and nifedipine. Added clonidine in case BP is still not controlled. Continue hemodialysis. Outpatient follow-up with nephrology. Ensure medication compliance Time spent is 40 minutes. More than 50% of the time was spent on patient education and coordination of care.
--- NOTE | 2024-10-20 11:18 | PD.RESPRO ---
Documentation for date of: 10/20/24 Subjective Subjective Interval history: A 59-year-old male with past medical history of hypertension, hyperlipidemia, type 2 diabetes mellitus, ESRD on HD [] is referred to the hospital by the dialysis center in view of low blood pressures and low heart rate. Patient was apparently normal till yesterday. Patient took all his medications as prescribed on the day before of admission. On the day of admission, in the morning patient noted low blood pressures when he checked at home, later he went to dialysis center for HD as per his routine schedule. In the dialysis center, patient was found to have heart rate of around 40 following which patient was immediately referred to the hospital. Patient denies chest discomfort, palpitations, syncopal like episodes, skipping of heartbeats, lower extremity edema. Patient reported that he is on dialysis since March 2024, likely due to her uncontrolled hypertension and diabetes. But also stated that he is able to produce some amount of urine. On the day of admission, patient only took baby aspirin. Last hemodialysis is on Tuesday before the day of admission ED course: -Initial vitals are blood pressure 102/61 mmHg, pulse rate 38/minute, respiratory rate 16/min, temperature 95.1 ?F, SpO2 98% with room air -Later patient suddenly went into asystole and became hemodynamically unstable for which patient was given 2 dose of atropine, placed on temporary pacing following which patient regained consciousness -Later labs showed sodium 133, potassium 7.4, chloride 97, BUN 41, creatinine 5.7, glucose 468, lactate 2.3, AST 71, ALT 102, ALP 211, troponin 0.189. EKG showed sinus bradycardia -Chest x-ray showed mild vascular congestion bilaterally -Patient received hyperkalemia protocol Nephrology was consulted for emergent hemodialysis 10/19/2024 Patient is seen and examined at bedside As patient is doing well even without pacemaker and no episode of bradycardia, patient is downgraded to floors for further management Vitals showed elevated blood pressures recommended to give max doses of hydralazine and nifedipine for now. If not controlled, will add other antihypertensive medications Labs showed WBC 11.4, Hb 11.1, platelets 195, sodium 138, potassium 4.5, chloride 100, bicarb 26.1, BUN 18, creatinine 3.5 Patient will receive dialysis as per his routine schedule Talk to the patient with the family at the bedside and explained about avoiding potassium rich diets Also informed the nurse to involve dietitian to explain about the potassium rich foods 10/20/2024 Patient is seen and examined at bedside in the dialysis unit No acute overnight events. Denies any other complaints Patient is started on nifedipine 90 Mg daily and hydralazine 100 Mg p.o. 3 times daily, carvedilol 12.5 Mg twice daily is added instead of metoprolol 100 Mg daily for better control of blood pressures Labs showed WBC 8.4, Hb 11.2, platelets 176, sodium 139, potassium 4.2, BUN 28, creatinine 5.2, phosphorus 6.3, AST 39, ALT 62 Patient is receiving dialysis today as per his routine schedule and tolerating it well Patient is stable to discharge from nephrology standpoint and can continue dialysis as per his routine schedule Exam Vital Signs Temp Pulse Resp BP Pulse Ox O2 Del Method O2 Flow Rate 97.1 F 73 16 157/81 H 99 Room Air 6 10/20/24 08:52 10/20/24 11:15 10/20/24 08:52 10/20/24 11:15 10/20/24 08:52 10/20/24 08:42 10/18/24 20:36 Narrative Exam General: Awake. HEENT: Normocephalic, atraumatic, mucous membranes moist. Heart: Regular rate and rhythm, no murmurs. Lungs: Clear to auscultation with no wheezing or crackles. TDC on right chest, appears sterile Abdomen: Soft, nondistended, nontender, positive bowel sounds. ?No guarding or rebound tenderness. Neurologic: Alert and oriented x3, no gross neurological deficit, and patient able to move all 4 extremities. Extremities: No edema. Skin: No rash or ecchymoses. Objective Labs 10/20/24 04:45 10/20/24 04:45 Labs: Laboratory Results - last 24 hr 10/20/24 04:45 WBC 8.4 RBC 3.96 L Hgb 11.2 L Hct 34.4 L MCV 87 MCH 28.3 MCHC 32.6 RDW Std Deviation 49.2 H Plt Count 176 Neut % (Auto) 68 Lymph % (Auto) 22 Reynolds % (Auto) 7 Eos % (Auto) 2 Baso % (Auto) 1 Neut # (Auto) 5.7 Lymph # (Auto) 1.9 Reynolds # (Auto) 0.6 Eos # (Auto) 0.2 Baso # (Auto) 0.0 Immature Gran # (Auto) 0.02 H Absolute Nucleated RBC 0.00 Immature Gran % 0 Nucleated RBC % 0 Sodium 139 Potassium 4.2 Chloride 101 Carbon Dioxide 26.0 Anion Gap 12 BUN 28 H Creatinine 5.2 H* D Estim Creat Clear Calc 12.0 L eGFR 12 L* BUN/Creatinine Ratio 5 L Glucose 189 H D Calculated Osmolality 288 Calcium 8.3 Corrected Calcium 8.7 Phosphorus 6.3 H Magnesium 1.8 Total Bilirubin 0.2 L AST 39 H ALT 62 H Alkaline Phosphatase 153 H Total Protein 6.1 Albumin 3.5 Globulin 2.6 Albumin/Globulin Ratio 1.3 Quality Measures Quality Measures VTE prophylaxis Assessment & Plan Assessment Current Active Medications: Generic Name Dose Route Start Last Admin Trade Name Freq PRN Reason Stop Dose Admin Acetaminophen 650 mg 10/18/24 15:30 10/18/24 19:57 Acetaminophen 325 Mg Tablet PO 11/17/24 15:29 650 mg Q6H PRN Administration Fever >101.5 Albuterol 1 puff 10/19/24 14:22 Albuterol Inh 8 Gm INH 11/18/24 14:21 Q4H PRN Shortness Of Breath Or Wheezing Aspirin 81 mg 10/20/24 09:00 Aspirin Ec 81 Mg Tabec PO 11/19/24 08:59 DAILY TAMIA Atorvastatin Calcium 80 mg 10/19/24 09:00 10/19/24 08:43 Atorvastatin Calcium 20 Mg Tablet PO 11/18/24 08:59 80 mg QDAY TAMIA Administration Atropine Sulfate 0.5 mg 10/18/24 15:35 Atropine Sulf Inj 0.1 Mg/Ml Syr 10 Ml IVP Q3M PRN bradicardia Carvedilol 12.5 mg 10/20/24 07:00 Carvedilol 12.5 Mg Tablet PO 11/19/24 06:59 BIDWM TAMIA Dextrose 25 ml 10/18/24 14:32 Dextrose 50%-Water Inj 50 Ml Syringe IV 11/17/24 14:31 Q15MIN PRN BG 50-70 responsive npo pt Dextrose 50 ml 10/18/24 14:32 Dextrose 50%-Water Inj 50 Ml Syringe IV 11/17/24 14:31 Q15MIN PRN BG <50 OR BG <70 & pt unresponsive Ferrous Sulfate 325 mg 10/19/24 14:30 10/19/24 15:40 Ferrous Sulf 325 Mg Tablet PO 11/18/24 14:29 325 mg QOD TAMIA Administration Glucagon 1 mg 10/18/24 18:23 Glucagon Inj 1 Mg Vial IM Q15MIN PRN BG <70, and no IV access Heparin Sodium (Porcine) 5,000 unit 10/18/24 22:00 10/20/24 05:12 Heparin Sod Inj 5000 Unit/Ml Vial SC 11/01/24 21:59 5,000 unit Q8HR TAMIA Administration Heparin Sodium (Porcine) 3,500 unit 10/18/24 21:13 10/18/24 21:50 Heparin Sod Inj 1000 Unit/Ml Vial 10 Ml INDWELLCAT 11/01/24 21:12 3,500 unit PRN PRN Administration DIALYSIS Hydralazine HCl 10 mg 10/19/24 06:24 10/19/24 19:02 Hydralazine Inj 20 Mg/Ml Vial IV 11/17/24 17:45 10 mg Q4HR PRN Administration hypertension Hydralazine HCl 100 mg 10/19/24 08:00 10/19/24 22:53 Hydralazine Hcl 25 Mg Tablet PO 11/18/24 07:59 100 mg TID@0800,1600,2300 TAMIA Administration Albumin Human 25 gm in 100 mls @ 100 mls/min 10/18/24 16:04 Albuminar-25 Ivpb IV PRN PRN DIALYSIS Insulin Human Lispro 0 unit 10/19/24 21:00 10/20/24 07:39 Insulin Lispro (Admelog) 1 Unit/0.01 Ml Unit SC 11/17/24 18:29 1 unit ACHS TAMIA Administration Protocol Lisinopril 20 mg 10/19/24 14:30 10/19/24 15:41 Lisinopril 20 Mg Tablet PO 11/18/24 14:29 20 mg QDAY TAMIA Administration Nifedipine 90 mg 10/20/24 09:00 Nifedipine Xl 30 Mg Tabcr PO 11/19/24 08:59 QDAY TAMIA Ondansetron HCl 4 mg 10/18/24 15:30 10/19/24 07:41 Ondansetron Inj 2 Mg/Ml Inj 2 Ml IV 11/17/24 15:29 4 mg Q6H PRN Administration NAUSEA OR VOMITING Protocol Pantoprazole Sodium 40 mg 10/19/24 09:00 10/19/24 08:43 Pantoprazole Inj 40 Mg Vial IVP 11/18/24 08:59 40 mg QDAY TAMIA Administration Vitamin B Complex/Vit C/Folic Acid 1 tab 10/20/24 09:00 Vit B12/Vit C/Fa (Nephrovite) Tablet PO 11/19/24 08:59 QDAY TAMIA Plan A 59-year-old male with past medical history of hypertension, hyperlipidemia, type 2 diabetes mellitus, ESRD on HD [//Tue] is referred to the hospital by the dialysis center in view of low blood pressures and low heart rate. # ESRD on HD [/TUE], since 2023 Likely due to uncontrolled hypertension and diabetes mellitus -Patient is started on HD since March 2024 and compliant with his dialysis sessions, last session is on 10/16/2024 -Presented to the hospital with low heart rate noted in the dialysis unit -In the ED, patient was found to have a heart rate of 38 bpm and patient was externally paced -Labs done at the time of admission showed potassium of 7.4, BUN 41, creatinine 5.7, bicarb 22.9, anion gap 13 -Chest x-ray showed mild bilateral vascular congestion Plan -Received emergent hemodialysis on 10/18/2024 and will do HD today as per his routine schedule -Recommended to monitor renal functions with electrolytes -Avoid nephrotoxic medications and renally dose medications # Hyperkalemia, resolved Likely due to ESRD -Potassium at the time of presentation is 7.4 -Patient came to the hospital with low heart rate and later went into asystole in the hospital for which patient was given 2 doses of atropine and started on external pacing -Patient received hyperkalemic protocol including calcium, V[place], insulin -Repeat potassium after 3 hours on the day of admission is 6.5, potassium on 10/19/2024 is 4.5 -Potassium is 4.2 as of 10/20/2024 Plan -Received emergent HD on 10/18/2024 and on 10/20/2024 as per his routine schedule -Recommend to monitor electrolytes and correct accordingly # Mild hyponatremia, Pseudohyponatremia -Sodium at the time of admission is 133, osmolality is 295 -Glucose is 416 -Corrected sodium will be within normal limits -Repeat sodium is 136 after 3 hours -Recommended to monitor electrolytes and replete accordingly # Uncontrolled diabetes mellitus -HbA1c at the time of admission is 8.5 -Patient is using Januvia at home -Recommended insulin sliding scale and strict control of blood sugars # Anemia, normocytic normochromic Likely anemia of chronic kidney disease -Hemoglobin at the time of admission is 11.9 Plan -Will give erythropoietin injections during hemodialysis # History of hypertension -Patient is using nifedipine, metoprolol, hydralazine, clonidine at home -Blood pressures at the time of admission is within normal limits -Recommended to continue max doses of nifedipine and hydralazine, carvedilol 12.5 Mg p.o. twice daily instead of metoprolol 100 Mg p.o. daily for better control of blood pressures -monitor blood pressures and resume medications as needed # Symptomatic bradycardia s/p external pacing # Hyperlipidemia -Rest of the medical conditions to be treated as per primary team Thank you for allowing us to involved in the care of the patient Patient plan of care was discussed with the attending physician, Dr. Akash Harden, PGY1 Attending Provider Attestation/Addendum Patient seen and examined with resident physician Dr. Hopson. Note reviewed, agree with findings and recommendations. Patient admitted with symptomatic hyperkalemia/ Asystole and was resuscitated with atropine. Renal consultation requested for need for emergency dialysis as potassium was 7.4. Patient received emergency dialysis on . patient currently seen on dialysis. Tolerating dialysis without any problems. Hemodialysis for 3 hours, 2K, ultrafiltration 2-3 L, Epogen 6000, no heparin ordered. Plan of care discussed with the dialysis nurse. Please see dialysis flowsheet for further details. Renal hart stable for discharge. Adjusted blood pressure medications.
[2024-10-20] MEDS: PANTOPRAZOLE INJ 40 MG VIAL IVP (12:31)
[2024-10-20] MEDS: Lisinopril 20 MG TABLET PO (12:32)
[2024-10-20] MEDS: NIFEdipine XL 30 MG TABCR 90 MG PO (12:32)
[2024-10-20] MEDS: ASPIRIN EC 81 MG TABEC PO (12:33)
[2024-10-20] MEDS: ATORVASTATIN CALCIUM 20 MG TABLET 80 MG PO (12:33)
[2024-10-20] MEDS: VIT B12/Vit C/FA (Nephrovite) TABLET 1 TAB PO (12:33)
[2024-10-20] MEDS: hydrALAZINE INJ 20 MG/ML VIAL 10 MG IV (13:58)
[2024-10-20] MEDS: hydrALAZINE HCL 25 MG TABLET 100 MG PO (15:10)
== END 2024-10-20 16:49 | disposition home or self-care (01) | DRG 201 ==
LOC: SERX 15:41 → SERHOLD 16:00 → S2SX 17:09 → S2NX 10-19 14:56
PROVIDERS: Nurse Practitioner Primary Care; Student in an Organized Health Care Education/Training Program; Admitting Provider Internal Medicine; Emergency Provider Emergency Medicine; PCP Physician Assistant; Visit Provider Internal Medicine
DX: R00.1 Bradycardia, unspecified (principal); E87.5 Hyperkalemia; E78.5 Hyperlipidemia, unspecified; E11.22 Type 2 diabetes mellitus with diabetic chronic kidney disease; N18.6 End stage renal disease; I12.0 Hypertensive chronic kidney disease with stage 5 chronic kidney disease or end stage renal disease; R56.9 Unspecified convulsions; Z99.2 Dependence on renal dialysis; D63.1 Anemia in chronic kidney disease; E11.65 Type 2 diabetes mellitus with hyperglycemia; E87.6 Hypokalemia; G93.40 Encephalopathy, unspecified; I16.1 Hypertensive emergency; Z79.899 Other long term (current) drug therapy; R57.9 Shock, unspecified; E87.20 Acidosis, unspecified; R74.01 Elevation of levels of liver transaminase levels; D72.829 Elevated white blood cell count, unspecified; R79.89 Other specified abnormal findings of blood chemistry; I46.8 Cardiac arrest due to other underlying condition; J90 Pleural effusion, not elsewhere classified; I08.1 Rheumatic disorders of both mitral and tricuspid valves
CPT/HCPCS: 36415; 71045; 80053; 80061; 80069; 81001; 83036; 83605; 83735; 83880; 84100; 84145; 84484; 85025; 85610; 85730; 87040; 87081; 87086; 93005; 93306; 94640; 96374; 96375; 99291; J0360; J1643; J1815; J1953; J2270; J2405; J2470; J3475; A9270

== ENCOUNTER 2025-01-05 13:25 | Emergency (ER) | payer MEDICAID, SELFPAY ==
[2025-01-05 13:40] VITALS: BP 163/78; PULSE 75; RESP 18; TEMP 36.8; O2SAT 98; BMI 24.2
--- NOTE | 2025-01-05 13:57 | PD.EDADULT ---
ED General RME/HPI General Chief complaint: Extremity Injury, Lower Stated complaint: Fell yesterday, left knee pain Time Seen by Provider: 01/05/25 13:28 Arrival date/time: 01/05/25 13:25 Limitations: no limitations RME / HPI RME / HPI narrative: DR. CABELLO MAIN ED EVALUATION: 59 year old male presents to the Emergency Department with complaint of left knee pain secondary to fall yesterday. Patient states he tripped over a water hose at home and fell on his left knee pain. No other injuries or symptoms reported. He states that he was able to get up and was slowly after fall but like at night it got worse and he started to have swelling. He went to dialysis today and was sent over because he could not walk due to pain. PMHx: Hypertension, hyperlipidemia, type 2 diabetes mellitus, ESRD on HD [//Tue]. Social Hx: No tobacco, alcohol, or substance use. Related Data Home Medications ?Medication ?Instructions ?Recorded ?Confirmed aspirin 81 mg tablet,delayed 81 mg PO DAILY 01/30/23 10/18/24 release albuterol sulfate 90 mcg/actuation 1 puff inhalation Q4H PRN 01/09/24 10/18/24 aerosol inhaler Shortness Of Breath Or Wheezing sitagliptin phosphate 25 mg tablet 25 mg PO QDAY 01/09/24 10/18/24 (Januvia) clonidine HCl 0.2 mg tablet 0.2 mg PO BID 04/17/24 10/18/24 Held on 10/20/24. Instructions: Resume on 11/03/24. If your blood pressure remains stable, 160 or less, you can hold clonidine until advised to resume by your primary care or narcotics agent vitamin B complex-vitamin C-folic 1 tab PO QDAY 04/17/24 10/18/24 acid 0.8 mg tablet (Alvina-Ming) atorvastatin 80 mg tablet 80 mg PO QDAY 07/04/24 10/18/24 azilsartan medoxomil 80 mg tablet 80 mg PO QAM 10/05/24 10/05/24 (Edarbi) ferrous sulfate 325 mg (65 mg 325 mg PO Q OTHER DAY 10/05/24 10/18/24 iron) tablet Previous Rx's ?Medication ?Instructions ?Recorded hydralazine 100 mg tablet 100 mg PO TID@0800,1600,2300 #90 04/23/24 tabs carvedilol 12.5 mg tablet 12.5 mg PO BIDWM 30 days #60 tabs 10/20/24 nifedipine 90 mg tablet,extended 90 mg PO DAILY 30 days #0 tabs 10/21/24 release Allergies Allergy/AdvReac Type Severity Reaction Status Date / Time No Known Allergies Allergy Verified 01/05/25 13:29 Review of Systems Review of Systems Systems Reviewed: All systems reviewed, normal except as documented Past Medical History Past Medical History CARDIAC: Positive Cardiac Disorders, Hypercholesterolemia, Congestive Heart Failure and Hypertension GENITOURINARY: Positive Genitourinary Disorders, Renal Disease and Dialysis (T//Tue) ENDOCRINE: Positive Endocrine Disorders and Diabetes Mellitus Type 2 HEMATOLOGIC: Positive Blood Disorders and Anemia PSYCHO/SOCIAL: Positive Depression OTHER HISTORY: Positive Hospitalization and Autoimmune Disease Family History FAMILY HISTORY: Positive Family Cardiac Disorders Social History SMOKING STATUS: Never smoker SUBSTANCE USE: does not use ALCOHOL: Never ED Exam General Limitations: Present no limitations General appearance: Present alert and in no apparent distress Head Head exam: Present atraumatic, normocephalic and normal inspection Eye Eye exam: Present normal appearance, PERRL and EOMI ENT ENT exam: Present normal exam, normal oropharynx and mucous membranes moist Neck Neck exam: Present normal inspection, full ROM and trachea midline Chest Chest inspection: Present normal inspection and symmetric chest wall rise Respiratory Respiratory exam: Present normal lung sounds bilaterally Cardiovascular Cardiovascular exam: Present regular rate, normal rhythm and normal heart sounds Abdominal Exam Abdominal exam: Present soft and normal bowel sounds Extremities Exam Extremities exam: Present other (Compared to the right knee, the left knee has a hematoma. Intact CSM. ) Back Exam Back exam: Present normal inspection and full ROM Neurological Exam Neurological exam: Present alert, oriented X3 and CN II-XII intact Psychiatric Psychiatric exam: Present normal affect and normal mood Skin Skin exam: Present warm, dry, intact and normal color Course Quality Measures none Orders Category Date Time Status Crutches .NOW Care 01/05/25 13:57 Active Splint / Immobilizer STAT Care 01/05/25 15:38 Active XR knee LT 3V Stat Exams 01/05/25 13:58 Completed HYDROmorphone INJ [Dilaudid Inj] Med 01/05/25 13:57 Discontinued 1 mg IM X1 ONE Vital Signs Vital signs: Vital Signs Temperature 98.3 F 01/05/25 13:40 Pulse Rate 75 01/05/25 13:40 Respiratory Rate 18 01/05/25 13:40 Blood Pressure 163/78 H 01/05/25 13:40 Pulse Oximetry (%) 98 01/05/25 13:40 Oxygen Delivery Method Room Air 01/05/25 13:40 Discharge Plan Plan Patient Disposition: HOME (Self Care) Patient condition on transfer: Stable Prescriptions/Referrals Prescriptions/Med Rec: No Action aspirin 81 mg tablet,delayed release (DR/EC) 81 mg PO DAILY Patient Comments: TOME JALEEL TABLETA TODOS LOS D FOR 90 DAYS carvedilol 12.5 mg Tablet 12.5 mg PO BIDWM 30 Days Qty: 60 1RF nifedipine 90 mg tablet extended release 90 mg PO DAILY 30 Days Qty: 0 0RF Januvia 25 mg tablet 25 mg PO QDAY albuterol sulfate 90 mcg/actuation HFA aerosol inhaler 1 puff INHALATION Q4H PRN (Reason: Shortness Of Breath Or Wheezing) Patient Comments: INHALE UN SOPLIDO INTO THE LUNGS CADA CUATRO HORAS CUANDO SEA NECESARIO FOR 30 DAYS clonidine HCl 0.2 mg Tablet 0.2 mg PO BID Alvina-Ming 0.8 mg Tablet 1 tab PO QDAY hydralazine 100 mg tablet 100 mg PO TID@0800,1600,2300 Qty: 90 0RF atorvastatin 80 mg Tablet 80 mg PO QDAY ferrous sulfate 325 mg (65 mg iron) tablet 325 mg PO Q OTHER DAY Edarbi 80 mg tablet 80 mg PO QAM Referrals: Robel Sharif MD [Primary Care Provider] - In 1 week Problem List Clinical Impression: Patella fracture Patient/Caregiver Discharge Instructions Discharge Activity: other Other Activity Instructions:: No weight bearing LLE Education Materials: ED Patella Fracture Print Language: Portuguese Stand Alone Forms: Atiya Award Info., Patient Portal Info Letter MDM Clinical Information Provided by patient and spouse Medical Records Reviewed [facility] Meds/Rx Considered, not Ordered None Labs/Rad/Tests considered, not Ordered None Chronic Illness/Social Conditions Add or document further as needed: Hypertension, hyperlipidemia, type 2 diabetes mellitus, ESRD on HD [T/TH/Sat]. EKG EKG not done Lab Interpretation Labs: none Imaging Radiology reports / interpretation(s): Procedure(s): XR knee LT 3V Accession Number(s): [id number] cc: Robel Sharif MD; Cruz Cabello MD; Aric Stacy MD~ Examination: Knee, left , 3 views Technique: Knee AP, lateral, oblique 3 views Date and time of exam: 01/05/2025 235 pm Indications: fell today with injury to the knee Findings: Vertical fracture through the patella without significant displacement Femur tibia fibula intact Impression: Acute fracture patella without significant displacement Dictated By: Aric Stacy MD Medication Administration(s) Medication Administration History Discontinued Medications Hydromorphone HCl (Hydromorphone Inj 2 Mg/Ml Vial) 1 mg IM X1 ONE Stop: 01/05/25 13:58 Last Admin: 01/05/25 14:37 Dose: 1 mg Documented By: NA Diagnosis Differential diagnosis: knee fracture, knee dislocation, fall Most likely dx, and/or detailed dx discussion: Patella fracture Dispositon Disposition: Discharge Home
[2025-01-05] MEDS: HYDROmorphone INJ 2 MG/ML VIAL 1 MG IM (14:37)
--- NOTE | 2025-01-05 17:02 | PC.NURSE ---
PT LEFT PRIOR TO RECEIVING LEFT KNEE IMMOBILIZER.
--- NOTE | 2025-01-05 17:06 | PC.NURSE ---
PT CALLED AND INFORMED ON KNEE IMMOBILIZER, PT STATES HE WILL COME BACK TO PICK ONE UP.
== END 2025-01-05 17:09 | disposition home or self-care (01) ==
PROVIDERS: Emergency Provider Emergency Medicine; PCP Family Medicine
DX: S82.002A Unspecified fracture of left patella, initial encounter for closed fracture (principal); W01.0XXA Fall on same level from slipping, tripping and stumbling without subsequent striking against object, initial encounter; E11.22 Type 2 diabetes mellitus with diabetic chronic kidney disease; E78.5 Hyperlipidemia, unspecified; I12.0 Hypertensive chronic kidney disease with stage 5 chronic kidney disease or end stage renal disease; N18.6 End stage renal disease; Z99.2 Dependence on renal dialysis
CPT/HCPCS: 73562; 96372; 99283; J1171

== ENCOUNTER 2025-01-31 11:05 | Day surgery (SDC) | payer MEDICAID, SELFPAY ==
[2025-01-30 07:52] VITALS: BMI 26.8
[2025-01-30 08:33] LABS: Basophils # (Auto) 0.0 Thou/mm3 (0.0-0.2); Basophils % (Auto) 0 % (0-2.5); Eosinophils # (Auto) 0.1 Thou/mm3 (0.0-0.5); Eosinophils % (Auto) 1 % (0-10); Hematocrit 32.3 % (41.0-53.0); Hemoglobin 10.8 g/dL (13.5-16.0); Immature Granulocytes Auto 0.02 Thou/mm3 (0.00-0.00); Lymphocytes # (Auto) 1.3 Thou/mm3 (1.0-4.8); Lymphocytes % (Auto) 18 % (10-50); Mean Corpuscular HGB Conc 33.4 g/dl (31.0-37.0); Mean Corpuscular Hemoglobin 30.2 pg (25.0-35.0); Mean Corpuscular Volume 90 fL (80-100); Monocytes # (Auto) 0.5 Thou/mm3 (0.0-0.8); Monocytes % (Auto) 7 % (0-12); Neutrophils # (Auto) 5.2 Thou/mm3 (1.8-7.7); Neutrophils % (Auto) 73 % (37-80); Nucleated Red Blood Cell # 0.00 Thou/mm3 (0.00-0.00); Nucleated Red Blood Cell % 0 /100 WBC (0); Platelet Count 223 Thou/mm3 (140-440); RDW Standard Deviation 45.3 fL (35.1-43.9); Red Blood Count 3.58 Miln/mm3 (4.50-5.90); White Blood Count 7.1 Thou/mm3 (3.8-10.6)
[2025-01-30 08:42] LABS: Alanine Aminotransferase 72 U/L (10-49); Albumin, Serum 4.0 gm/dL (3.5-5.0); Albumin/Globulin Ratio 1.4 (1.2-2.2); Alkaline Phosphatase 330 U/L (46-116); Anion Gap 11 (7-16); Aspartate Amino Transferase 45 U/L (0-34); BUN/Creatinine Ratio 6 Ratio (12-20); Bilirubin,Total 0.2 mg/dL (0.3-1.2); Blood Urea Nitrogen 29 mg/dL (9-23); Calcium 8.6 mg/dL (8.3-10.6); Calcium (Corrected) 8.6 mg/dL (8.5-10.1); Carbon Dioxide 27.7 mMol/L (20.0-31.0); Chloride 101 mMol/L (98-107); Creatinine (Component) 4.9 mg/dL (0.6-1.3); Estimated Creatinine Clearance 14.3 mL/min (>60); Globulin 2.8 gm/dL (2.3-3.5); Glucose 229 mg/dL (74-106); Osmolality,Calculated 292 (275-295); Potassium 5.0 mMol/L (3.4-5.1); Sodium 140 mMol/L (136-145); Total Protein 6.8 gm/dL (5.7-8.2); eGFR 13 See Note
[2025-01-30 09:37] LABS: INR 1.1 (0.9-1.3); Partial Thromboplastin Time 29.9 Seconds (22.0-36.0); Prothrombin Time 11.9 Seconds (9.0-12.2)
[2025-01-31] VITALS (8 sets, daily range): BP systolic 102–111; BP diastolic 57–63; PULSE 49–57; RESP 12–14; TEMP 36.3–36.6; O2SAT 95–99; BMI 25.1
[2025-01-31] MEDS: SODIUM CHLORIDE 0.9% 500 ML 500 ML 20 ML IV (12:30)
[2025-01-31 13:11] LABS: Potassium 4.9 mMol/L (3.4-5.1)
--- NOTE | 2025-01-31 15:25 | PD.SUROPNT ---
Date of Procedure 01/31/25 Pre Op Diagnosis End-stage renal disease Post Op Diagnosis Same as preop diagnosis Procedure Revision of left upper extremity arteriovenous fistula via basilic vein transposition Findings Excellent flow in the fistula Procedure Description With the patient supine under laryngeal mask anesthesia left upper extremity sterilely prepped and draped. A timeout was performed. The basilic vein was inspected with ultrasound and found to be suitable for transposition. A slightly curved incision was then made from the deltopectoral groove to the medial aspect of the elbow and the subcutaneous tissues were dissected with the electrocautery. Sharp and blunt dissection was then used to expose the vein with the assistance of the harmonic focus scalpel. All vascular structures were were ligated with silk ties or hemoclips. After completely freeing the vein from subcutaneous tissues all over the length of the incision a lateral skin flap was made with electrocautery then the subcutaneous tissues were reapproximated beneath the vein with a running 3-0 Vicryl and the skin was approximated with a running 4-0 Monocryl. A Prineo dressing was applied. The patient woke up from anesthesia and was moved to recovery in stable condition Anesthesia other (Laryngeal mask anesthesia) Implants None Pathology / specimen None Estimated Blood Loss 50 Condition Stable Disposition PACU Surgeon Alexis Jeffries MD Surgical Staff Operation Date: 01/31/25 15:15 Case Staff FOREST PATHOLOGY TEACHER: Aric Leo RNelectrical integrator: Ivory Bustos
--- NOTE | 2025-01-31 15:47 | SUR.PHASEI ---
pt arrived to PACU via gurney drowsy but arouses to voice, breathing unlabored, dressing to left arm clean, dry, and intact-no bleeding present, report from Sondra ARGUELLO and Aric TURK
[2025-01-31] MEDS: fentaNYL CIT INJ 50 mCg/ML AMP 2ML 25 MCG IVP (16:13)
--- NOTE | 2025-01-31 16:30 | SUR.PHASEII ---
pt awake, alert, able to follow commands, breathing unlabored, dressing to left arm clean, dry, and intact, pt able to tolerate oral fluids without difficulty swallowing or n/v, VS stable, report given to Angelina ARGUELLO
--- NOTE | 2025-01-31 16:35 | SUR.PHASEII ---
Received report on pt. s/p surgery from Valarie Celestin RN. Pt. is AAOx3, VSS, no c/o pain or nausea at this time, dressing to left arm CDI.
--- NOTE | 2025-01-31 17:00 | SUR.PHASEII ---
Pt. meets criteria for discharge, VSS, dressing to left arm CDI, no active bleeding noted, bruit and thrill present to left upper arm, no c/o pain or nausea at this time, IV discontinued without complications. Discharge instructions provided to pt. and pt.'s daughter with use of commercial credit officer services, verbalized understanding. Pt. escorted to vehicle via w/c with all of belongings by staff.
== END 2025-01-31 17:00 | disposition home or self-care (01) ==
PROVIDERS: Anesthesiology; PCP Family Medicine; Referring Provider Surgery Vascular Surgery; Visit Provider Surgery Vascular Surgery
PROC: (CPT 36832; principal; 2025-01-31 15:00)
DX: I12.0 Hypertensive chronic kidney disease with stage 5 chronic kidney disease or end stage renal disease (principal); I77.0 Arteriovenous fistula, acquired; N18.6 End stage renal disease; E11.22 Type 2 diabetes mellitus with diabetic chronic kidney disease
CPT/HCPCS: 36832; 36415; 80053; 84132; 85025; 85610; 85730; A4217; A4649; J0690; J1644; J2704; J3010; J3490; J7999; J0665

== ENCOUNTER 2025-07-22 17:47 | Emergency (ER) | payer MEDICAID, SELFPAY ==
[2025-07-22 18:01] VITALS: BP 187/83; PULSE 90; RESP 18; TEMP 38.2; O2SAT 95; BMI 27.3
--- NOTE | 2025-07-22 18:51 | XR_ITS ---
EXAMINATION: PA lateral chest 2 views TECHNIQUE: Upright PA lateral chest 2 views Date and time: July 22, 2025, 1922 hours INDICATIONS: Fever beginning 3 days ago FINDINGS: Mild to moderate enlargement left ventricle Mild vascular congestion. No lobar pneumonia. Mild osteopenia IMPRESSION: Mild to moderate enlargement left ventricle Mild vascular congestion No lobar pneumonia
--- NOTE | 2025-07-22 20:19 | EKG_ITS ---
[facility] Test Date: 2025-07-22 Pat Name: PAIGE GANDHI Department: Room: - Gender: Male Carpenter Maintenance: : 1965 Requested By: Wendy Go Order Number: [id number] Reading MD: Wendy Go Measurements Intervals [place] Rate: 90 P: 68 MD: 141 QRS: 73 QRSD: 97 T: 56 QT: 370 QTc: 453 Interpretive Statements SINUS RHYTHM Compared to ECG 10/18/2024 21:49:56 T-wave abnormality no longer present /store/S0/[id number].pdf
--- NOTE | 2025-07-22 20:19 | PD.EDRME ---
Rapid Medical Screening Exam RME Arrival date/time: 07/22/25 17:47 This is a case of 59-year-old male with history of hypertension diabetes who came into the emergency room high blood pressure cough and sore throat persistence of the symptoms this patient decided to start consulted in the emergency room Chief Complaint: Flu Like Symptoms Time Seen by Provider: 07/22/25 18:44 Vital signs: Vital Signs Temperature 100.7 F H 07/22/25 18:01 Pulse Rate 90 07/22/25 18:01 Respiratory Rate 18 07/22/25 18:01 Blood Pressure 187/83 H 07/22/25 18:01 Pulse Oximetry (%) 95 07/22/25 18:01 Oxygen Delivery Method Room Air 07/22/25 18:01 Exam: Clear breath sounds no crackles no rales no retraction no cervical normal rate trocar rhythm no murmur the lateral tonsils were swollen red but no exudate Clinical Impression: Cough sore throat
[2025-07-22 20:52] LABS: Basophils # (Auto) 0.0 Thou/mm3 (0.0-0.2); Basophils % (Auto) 0 % (0-2.5); Eosinophils # (Auto) 0.0 Thou/mm3 (0.0-0.5); Eosinophils % (Auto) 0 % (0-10); Hematocrit 34.0 % (41.0-53.0); Hemoglobin 11.6 g/dL (13.5-16.0); Immature Granulocytes Auto 0.05 Thou/mm3 (0.00-0.00); Lymphocytes # (Auto) 0.9 Thou/mm3 (1.0-4.8); Lymphocytes % (Auto) 6 % (10-50); Mean Corpuscular HGB Conc 34.1 g/dl (31.0-37.0); Mean Corpuscular Hemoglobin 31.1 pg (25.0-35.0); Mean Corpuscular Volume 91 fL (80-100); Monocytes # (Auto) 0.9 Thou/mm3 (0.0-0.8); Monocytes % (Auto) 6 % (0-12); Neutrophils # (Auto) 12.6 Thou/mm3 (1.8-7.7); Neutrophils % (Auto) 87 % (37-80); Nucleated Red Blood Cell # 0.00 Thou/mm3 (0.00-0.00); Nucleated Red Blood Cell % 0 /100 WBC (0); Platelet Count 146 Thou/mm3 (140-440); RDW Standard Deviation 41.3 fL (35.1-43.9); Red Blood Count 3.73 Miln/mm3 (4.50-5.90); White Blood Count 14.4 Thou/mm3 (3.8-10.6)
[2025-07-22 21:12] LABS: Alanine Aminotransferase 24 U/L (10-49); Albumin, Serum 3.7 gm/dL (3.5-5.0); Albumin/Globulin Ratio 1.2 (1.2-2.2); Alkaline Phosphatase 105 U/L (46-116); Anion Gap 12 (7-16); Aspartate Amino Transferase 38 U/L (0-34); BUN/Creatinine Ratio 4 Ratio (12-20); Bilirubin,Total 0.3 mg/dL (0.3-1.2); Blood Urea Nitrogen 20 mg/dL (9-23); Calcium 8.7 mg/dL (8.3-10.6); Calcium (Corrected) 8.9 mg/dL (8.5-10.1); Carbon Dioxide 30.2 mMol/L (20.0-31.0); Chloride 94 mMol/L (98-107); Creatinine (Component) 4.5 mg/dL (0.6-1.3); Estimated Creatinine Clearance 15.7 mL/min (>60); Globulin 3.0 gm/dL (2.3-3.5); Glucose 198 mg/dL (74-106); Osmolality,Calculated 280 (275-295); Potassium 4.2 mMol/L (3.4-5.1); Sodium 136 mMol/L (136-145); Total Protein 6.7 gm/dL (5.7-8.2); eGFR 14 See Note
[2025-07-22 21:15] LABS: Troponin I 2.722 ng/mL (0.0-0.045)
[2025-07-22 21:29] VITALS: BP 169/85; PULSE 92; RESP 20; TEMP 39.3; O2SAT 95
--- NOTE | 2025-07-22 22:01 | PD.EDURI ---
Upper Respiratory Inf. RME/HPI General Chief Complaint: Flu Like Symptoms Stated Complaint: SORE THROAT, COUGH Time Seen by Provider: 07/22/25 18:44 Arrival date/time: 07/22/25 17:47 RME / HPI RME / HPI Narrative: 07/22/25 17:47 This is a case of 59-year-old male with history of hypertension diabetes who came into the emergency room high blood pressure cough and sore throat persistence of the symptoms this patient decided to start consulted in the emergency room Dr. Meyers?s Main ED Evaluation: 59yo male with history of ESRD on HD, DM, HTN presents to the ED for a chief complaint of a sore throat x 2 days. Denies any cough, shortness of breath, chest pain/pressure/tightness, fever, chills, or any other associated symptoms. Patient was last dialyzed on 07/20/25. NKA. Related Data Home Medications ?Medication ?Instructions ?Recorded ?Confirmed aspirin 81 mg tablet,delayed 81 mg PO DAILY 01/30/23 01/31/25 release albuterol sulfate 90 mcg/actuation 1 puff inhalation Q4H PRN 01/09/24 01/31/25 aerosol inhaler Shortness Of Breath Or Wheezing vitamin B complex-vitamin C-folic 1 tab PO QDAY 04/17/24 01/31/25 acid 0.8 mg tablet (Alvina-Ming) atorvastatin 80 mg tablet 80 mg PO QDAY 07/04/24 01/31/25 azilsartan medoxomil 40 1 tab PO QDAY 01/30/25 01/31/25 mg-chlorthalidone 25 mg tablet (Edarbyclor) ergocalciferol (vitamin D2) 1,250 1,250 mcg PO QWEEK 01/30/25 01/31/25 mcg (50,000 unit) capsule (Vitamin D2) nifedipine 30 mg tablet,extended 30 mg PO DAILY 01/30/25 01/31/25 release 24 hr sitagliptin phosphate 50 mg tablet 50 mg PO QDAY 01/30/25 01/31/25 (Januvia) Previous Rx's ?Medication ?Instructions ?Recorded hydralazine 100 mg tablet 100 mg PO TID@0800,1600,2300 #90 04/23/24 tabs carvedilol 12.5 mg tablet 12.5 mg PO BIDWM 30 days #60 tabs 10/20/24 Allergies Allergy/AdvReac Type Severity Reaction Status Date / Time No Known Allergies Allergy Verified 07/22/25 17:52 Review of Systems Review of Systems Systems Reviewed: All systems reviewed, normal except as documented Past Medical History Past Medical History NEUROLOGIC: Negative Neurological Disorders or Seizures CARDIAC: Positive Cardiac Disorders, Hypercholesterolemia, Congestive Heart Failure and Hypertension RESPIRATORY: Negative Chronic Obstructive Pulmonary Disease (COPD) GASTROINTESTINAL: Negative Gastrointestinal Disorders GENITOURINARY: Positive Genitourinary Disorders, Renal Disease and Dialysis (//Tue) MUSCULOSKELETAL: Positive Fractures (Recent fall last December, fx left patella); Negative Musculoskeletal Disorders ENDOCRINE: Positive Endocrine Disorders and Diabetes Mellitus Type 2; Negative Diabetes Mellitus Type 1 HEMATOLOGIC: Positive Blood Disorders and Anemia PSYCHO/SOCIAL: Positive Depression OTHER HISTORY: Positive Hospitalization and Autoimmune Disease; Negative Blood Transfusions, Blood Transfusion Reaction, Anesthesia Reactions or Cancer Family History FAMILY HISTORY: Positive Family Cardiac Disorders; Negative Family Psychiatric Problems, Family Respiratory Disorders, Family Gastrointestinal Problems, Family Cancer, Family Surgery or Family Anesthesia Reaction Surgical History SURGICAL: Negative Cardiac Surgery, Ear Surgery, Abdominal Surgery or Joint Replacement Social History SMOKING STATUS: Never smoker SUBSTANCE USE: does not use ED Exam Narrative Physical exam: Generally patient is alert in no obvious distress, oropharynx is moist and clear without erythema or exudate to the posterior pharynx with the uvula midline, heart regular rate and rhythm, lungs clear to auscultation equal bilaterally, abdomen soft bowel sounds present nondistended nontender, skin is warm pale and dry, neurologic exam shows Corn Coma Scale of 15 without focal deficits Course Quality Measures none Orders Category Date Time Status Bedside COVID-19 Antigen Test NOW Care 07/22/25 21:38 Active Bedside Influenza A&B Antigen Test NOW Care 07/22/25 18:28 Completed Bedside Influenza A&B Antigen Test NOW Care 07/22/25 21:38 Completed Bedside STREP Test NOW Care 07/22/25 19:16 Active EKG (ED ONLY) *Do not use* NOW Care 07/22/25 20:19 Completed EKG (ED Only) Stat Exams 07/22/25 20:19 Draft XR chest 2V Stat Exams 07/22/25 18:51 Completed CBC Stat Lab 07/22/25 20:39 Completed CMP [Comprehensive Metabolic Panel] Stat Lab 07/22/25 20:39 Completed Troponin I Stat Lab 07/22/25 20:39 Completed Troponin I Stat Lab 07/22/25 22:45 Completed Vital Signs Vital signs: Vital Signs Temperature 100.7 F H 07/22/25 18:01 Pulse Rate 90 07/22/25 18:01 Respiratory Rate 18 07/22/25 18:01 Blood Pressure 187/83 H 07/22/25 18:01 Pulse Oximetry (%) 95 07/22/25 18:01 Oxygen Delivery Method Room Air 07/22/25 18:01 Upper Respiratory Infection MDM Narrative MDM Narrative:: Scribe Attestation: 07/22/25 - Holley, Julisa Evans am scribing for and in the presence of Dr. Meyers. Chest x-ray shows mild vascular congestion with an O2 saturation of 92 to 93% on room air. EKG showed normal sinus rhythm at a rate of 90 without ischemic change or ectopy. In RME a troponin was obtained which was 2.7. Repeat was 2.6. Patient denies having any chest pain pressure tightness or heaviness. Influenza A was positive. Patient is stable for discharge. Patient data External records reviewed:: [facility] previous records (Per chart review, patient was seen here on 01/05/25 for patella fracture.) Clinical information provided by:: patient Social determinants that could affect healthcare access:: none Patient has the following chronic illnesses:: HTN, HLD, ESRD on HD (T/Th/Sat), DMII How is presenting disease/condition affected by chronic disease/condition?: exacerbated by Evaluation data The following diagnostics were reviewed and interpreted by me:: lab results, radiology exam(s) and EKG tracing(s) Lab and/or radiology exams considered but not ordered:: none Interpretation Summary: [facility] Report Signed Patient: PAIGE GANDHI [facility]. Record#: [id number] Birthdate: 1965 Age/Sex: 59 / M Location: [facility] Attending Dr: Ordering Physician: Wendy Murray Date of Service: 07/22/25 Procedure(s): XR chest 2V Accession Number(s): [id number] cc: Nikhil Evans MD; Aric Stacy MD; Murray,Noralda Q ADDICTION TREATMENT COUNSELOR~ EXAMINATION: PA lateral chest 2 views TECHNIQUE: Upright PA lateral chest 2 views Date and time: July 22, 2025, 1922 hours INDICATIONS: Fever beginning 3 days ago FINDINGS: Mild to moderate enlargement left ventricle Mild vascular congestion. No lobar pneumonia. Mild osteopenia IMPRESSION: Mild to moderate enlargement left ventricle Mild vascular congestion No lobar pneumonia Dictated By: Aric Stacy MD Signed By: <Electronically signed by Aric Stacy MD in OV> 07/22/251936 Medications / Prescriptions Medications or Prescriptions considered but not ordered:: none Medication administrations:: see above, if any Consultations Consultation(s) initiated? (list below): No Diagnosis Upper Respiratory Differential Diagnosis: other (See MDM) Most likely diagnosis given after review of the tests above:: see clinical impression below Admission Indicated Admission indicated?: not indicated Admission Request Was there a request for admission?: No Disposition Plan Disposition Plan: Discharge Discharge Attestation Discharge Attestation: The patient and all family members were given an opportunity to ask questions and understood the discharge instructions. Discharge instructions specifically effects, indications for sooner follow up or return to the emergency department, and the expected course of current diagnosis. Patient condition: Stable Discharge Plan Plan Patient Disposition: HOME (Self Care) Prescriptions/Referrals Prescriptions/Med Rec: No Action aspirin 81 mg tablet,delayed release (DR/EC) 81 mg PO DAILY Patient Comments: TOME JALEEL TABLETA TODOS LOS D FOR 90 DAYS carvedilol 12.5 mg Tablet 12.5 mg PO BIDWM 30 Days Qty: 60 1RF albuterol sulfate 90 mcg/actuation HFA aerosol inhaler 1 puff INHALATION Q4H PRN (Reason: Shortness Of Breath Or Wheezing) Patient Comments: INHALE UN SOPLIDO INTO THE LUNGS CADA CUATRO HORAS CUANDO SEA NECESARIO FOR 30 DAYS Alvina-Ming 0.8 mg Tablet 1 tab PO QDAY hydralazine 100 mg tablet 100 mg PO TID@0800,1600,2300 Qty: 90 0RF atorvastatin 80 mg Tablet 80 mg PO QDAY Januvia 50 mg tablet 50 mg PO QDAY ergocalciferol (vitamin D2) [Vitamin D2] 1,250 mcg (50,000 unit) capsule 1,250 mcg PO QWEEK Edarbyclor 40-25 mg tablet 1 tab PO QDAY nifedipine 30 mg tablet extended release 24hr 30 mg PO DAILY Referrals: Nikhil Evans MD [Primary Care Provider, Family Practice] - In 1 week Problem List Clinical Impression: Influenza A Patient/Caregiver Discharge Instructions Education Materials: ED Influenza (Adult) Additional Instructions: You have the flu. You may take Tylenol for pain. Follow-up with your doctor as needed. Continue current medications. Print Language: Chinese Stand Alone Forms: Atiya Award Info., Patient Portal Info Letter
[2025-07-22 23:19] LABS: Troponin I 2.623 ng/mL (0.0-0.045)
[2025-07-23 00:08] VITALS: BP 174/64; PULSE 84; RESP 18; TEMP 36.6; O2SAT 99
== END 2025-07-23 00:10 | disposition home or self-care (01) ==
PROVIDERS: Nurse Practitioner Family; Emergency Provider Emergency Medicine; PCP Family Medicine
DX: J10.1 Influenza due to other identified influenza virus with other respiratory manifestations (principal); I13.11 Hypertensive heart and chronic kidney disease without heart failure, with stage 5 chronic kidney disease, or end stage renal disease; E11.22 Type 2 diabetes mellitus with diabetic chronic kidney disease; N18.6 End stage renal disease; Z99.2 Dependence on renal dialysis
CPT/HCPCS: 36415; 71046; 80053; 84484; 85025; 87502; 87635; 87651; 93005; 99283